=== PATIENT | female | born 1960 | race Caucasian/White ===

== ENCOUNTER 2020-09-10 09:38 | Outpatient (REF) | payer OTHER, SELFPAY ==
[2020-09-10 10:27] LABS: MANUAL DIFF FLAG NO
[2020-09-10 10:37] LABS: Basophils Percent Auto 0.8 % (0-2); Eosinophils Absolute Auto 0.3 X10*3/uL (0.0-0.4); Eosinophils Percent Auto 4.9 % (0-4); Hematocrit 40.1 % (37-47); Hemoglobin 12.9 g/dl (12.0-16.0); Imm Gran Abs Auto 0.01 X10*3/uL (0.00-0.03); Imm Gran Pct Auto 0.2 % (0.0-0.4); Lymphocytes Absolute Auto 1.4 X10*3/uL (1.2-4.9); Lymphocytes Percent Auto 25.7 % (20-40); Mean Corpuscular HGB Conc 32.2 g/dl (31.0-35.0); Mean Corpuscular Hemoglobin 28.2 pg (27.0-33.0); Mean Corpuscular Volume 87.7 fL (80-98); Mean Platelet Volume 10.4 fL (9.4-12.3); Monocytes Absolute Auto 0.3 X10*3/uL (0.1-1.2); Monocytes Percent Auto 6.4 % (2-11); Neutrophils Absolute Auto 3.3 X10*3/uL (2.0-8.3); Platelet Count 225 X10*3/uL (160-400); Red Blood Count 4.57 X10*6/uL (4.20-5.50); Red Cell Distribution Width 13.4 % (11.0-16.0); White Blood Count 5.3 X10*3/uL (4.8-10.8)
[2020-09-10 10:58] LABS: Alanine Aminotransferase 24 U/L (0-31); Albumin Level 4.4 g/dL (3.5-5.0); Alkaline Phosphatase 88 U/L (39-117); Anion Gap 11 (12-20); Aspartate Amino Transferase 13 U/L (5-31); Bilirubin Total 0.5 mg/dL (0.0-1.0); Blood Urea Nitrogen 21 mg/dL (9-16); Calcium 9.1 mg/dL (8.4-10.2); Carbon Dioxide 29 mmol/L (22-29); Chloride 106 mmol/L (96-108); Cholesterol 204 mg/dL; Estimated Glomerular Filt Rate > 60; Glucose Random 103 mg/dL (60-115); HDL Cholesterol 67 mg/dL; LDL Cholesterol Calculated 118 mg/dl; Potassium 3.8 mmol/l (3.3-5.1); Sodium 142 mmol/L (135-145); Total Protein 6.9 g/dL (6.5-8.0); Triglycerides 98 mg/dL
== END 2020-09-10 09:39 | disposition home or self-care (01) ==
LOC: HO.LAB 09:38
PROVIDERS: Visit Provider Internal Medicine
DX: D50.9 Iron deficiency anemia, unspecified (principal); E78.00 Pure hypercholesterolemia, unspecified; L20.81 Atopic neurodermatitis
CPT/HCPCS: 36415; 80053; 80061; 85025

== ENCOUNTER 2020-10-28 12:19 | Outpatient (REF) | payer OTHER, SELFPAY ==
[2020-10-29 13:37] LABS: Immunoglobulin A 95 mg/dL (47-310)
[2020-10-30 00:18] LABS: Transglutaminase Ab IgG 4 U/mL; Transglutaminase IgA 1 U/mL
[2020-11-01 22:33] LABS: Gliadin Deamidated IgA Ab 3 Units; Gliadin Deamidated IgG Ab 3 Units
[2020-11-05 14:32] LABS: Endomysial IgA Antibody Negative (Negative)
== END 2020-10-28 12:20 | disposition home or self-care (01) ==
LOC: HO.10HDL 12:19
PROVIDERS: Visit Provider Internal Medicine
DX: K58.0 Irritable bowel syndrome with diarrhea (principal)
CPT/HCPCS: 36415; 82784; 83516; 86255; 86256

== ENCOUNTER 2020-11-12 10:50 | Day surgery (SDC) | payer OTHER, SELFPAY ==
[2020-11-05 14:28] VITALS: BMI 24.8
--- NOTE | 2020-11-11 10:35 | P.CONAN_ITS ---
Documented by User: Simni Pangney 11/11/20 10:52 HPI - Anesthesia Eval Consult details Narrative: 60yo F for Colonoscopy PMFSH Past Medical History Medical History Anorexia Back pain Bulimia Fibromyalgia History of depression History of pernicious anemia Hyperlipidemia IBS (irritable bowel syndrome) Surgical History Surgical History Hx of breast implants, bilateral Hx of cataract extraction Hx of cholecystectomy Hx of tonsillectomy Social History Social History Are you a primary child care development specialist to a significant other at home: No Do you presently have visiting nurse or other home services: No Smoking Status: Current some day smoker Packs Per Day: 0 Cigarettes Per Day: 0 Years Smoked: 13 Smoked in Last 30 Days: Yes Patient Interested in Nicotine Replacement: No Patient Given Instructions on How to Stop Smoking: Yes Date Education Initiated: 11/05/20 Second Hand Smoke Exposure: No Use of substances other than those prescribed or required for medical reasons: No Have you been hit, kicked, punched, or otherwise hurt by someone within the past year? If so, by whom?: No Advance Directives: No Advance Directives Information Provided: No Advance Directives on File: No Recently lost weight without trying: No Meds Allergies Allergy/AdvReac Type Severity Reaction Status Date / Time No Known Allergies Allergy Unverified 11/05/20 14:20 Home Medications Medication Instructions Recorded Confirmed Last Taken Type coenzyme Q10 [CoQ-10] 100 mg PO DAILY 11/05/20 11/05/20 Unknown History cyclobenzaprine 1 tab PO BEDTIME 11/05/20 11/05/20 Unknown History hydroxyzine HCl 1 tab PO TID 11/05/20 11/05/20 Unknown History multivitamin 1 tab PO DAILY 11/05/20 11/05/20 Unknown History naproxen sodium [Aleve] 220 mg PO BID PRN 11/05/20 11/05/20 Unknown History rosuvastatin 1 tab PO BEDTIME 11/05/20 11/05/20 Unknown History Exam Exam Date and Time: November 11, 2020 1035 Height,Weight and Vital Signs: Height 5 ft 6 in Weight 69.853 kg Pertinent Lab Results Pertinent Lab Results: Laboratory Tests 09/10/20 09/10/20 09:43 09:43 WBC 5.3 Hgb 12.9 Hct 40.1 Plt Count 225 Sodium 142 Potassium 3.8 Chloride 106 Carbon Dioxide 29 BUN 21 H Creatinine 0.92 Assessment and Plan Assessment Anesthesia Assessment: Chart Reviewed Documented by User: Tereso Mccray MD 11/12/20 12:59 PMFSH Past Medical History Medical History Anorexia Back pain Bulimia Fibromyalgia History of depression History of pernicious anemia Hyperlipidemia IBS (irritable bowel syndrome) Surgical History Surgical History Hx of breast implants, bilateral Hx of cataract extraction Hx of cholecystectomy Hx of tonsillectomy Social History Social History Are you a primary child care development specialist to a significant other at home: No Do you presently have visiting nurse or other home services: No Smoking Status: Current some day smoker Packs Per Day: 0 Cigarettes Per Day: 0 Years Smoked: 13 Smoked in Last 30 Days: Yes Patient Interested in Nicotine Replacement: No Patient Given Instructions on How to Stop Smoking: Yes Date Education Initiated: 11/05/20 Second Hand Smoke Exposure: No Use of substances other than those prescribed or required for medical reasons: No Have you been hit, kicked, punched, or otherwise hurt by someone within the past year? If so, by whom?: No Advance Directives: No Advance Directives Information Provided: No Advance Directives on File: No Recently lost weight without trying: No Meds Allergies Allergy/AdvReac Type Severity Reaction Status Date / Time No Known Allergies Allergy Unverified 11/05/20 14:20 Home Medications Medication Instructions Recorded Confirmed Last Taken Type coenzyme Q10 [CoQ-10] 100 mg PO DAILY 11/05/20 11/05/20 Unknown History cyclobenzaprine 1 tab PO BEDTIME 11/05/20 11/05/20 Unknown History hydroxyzine HCl 1 tab PO TID 11/05/20 11/05/20 Unknown History multivitamin 1 tab PO DAILY 11/05/20 11/05/20 Unknown History naproxen sodium [Aleve] 220 mg PO BID PRN 11/05/20 11/05/20 Unknown History rosuvastatin 1 tab PO BEDTIME 11/05/20 11/05/20 Unknown History Exam Airway Mallampati Class: II TM Dist: >3cm Neck ROM: Full Denture: Upper (Fixed) and Lower Loose/Missing/Broken Teeth: Yes Lungs: nonlabored Assessment and Plan Assessment Anesthesia Assessment: Anesthesia Plan Discussed and Chart Reviewed Final Anesthetic Review NPO: Yes ASA Class: II Final Preanesthetic Review: No Changes in Pt Med Stat, Meds/Allgs Chart Reviewed, Consent Obtained/Reviewed and Anes Risks/Benef Reviewed Patient Risk: Low Procedure Risk: Low Anesthetic Plan Anesthetic Plan: MAC: Disposition: Standard PACU
[2020-11-12 11:53] VITALS: BP 144/97; PULSE 92; RESP 18; TEMP 36.3; O2SAT 97
--- NOTE | 2020-11-12 12:56 | PC.NURSE ---
Georges WHITE STATED SHE WOULD GET A TAXI VOUCHER FOR PATIENT.
--- NOTE | 2020-11-12 13:39 | P.CONAN_ITS ---
[facility] Past Medical History Medical History Anorexia Back pain Bulimia Fibromyalgia History of depression History of pernicious anemia Hyperlipidemia IBS (irritable bowel syndrome) Surgical History Surgical History Hx of breast implants, bilateral Hx of cataract extraction Hx of cholecystectomy Hx of tonsillectomy Social History Social History Are you a primary college and career counselor to a significant other at home: No Do you presently have visiting nurse or other home services: No Smoking Status: Current some day smoker Packs Per Day: 0 Cigarettes Per Day: 0 Years Smoked: 13 Smoked in Last 30 Days: Yes Patient Interested in Nicotine Replacement: No Patient Given Instructions on How to Stop Smoking: Yes Date Education Initiated: 11/05/20 Second Hand Smoke Exposure: No Use of substances other than those prescribed or required for medical reasons: No Have you been hit, kicked, punched, or otherwise hurt by someone within the past year? If so, by whom?: No Advance Directives: No Advance Directives Information Provided: No Advance Directives on File: No Recently lost weight without trying: No Meds Allergies Allergy/AdvReac Type Severity Reaction Status Date / Time No Known Allergies Allergy Unverified 11/05/20 14:20 Home Medications Medication Instructions Recorded Confirmed Last Taken Type coenzyme Q10 [CoQ-10] 100 mg PO DAILY 11/05/20 11/05/20 Unknown History cyclobenzaprine 1 tab PO BEDTIME 11/05/20 11/05/20 Unknown History hydroxyzine HCl 1 tab PO TID 11/05/20 11/05/20 Unknown History multivitamin 1 tab PO DAILY 11/05/20 11/05/20 Unknown History naproxen sodium [Aleve] 220 mg PO BID PRN 11/05/20 11/05/20 Unknown History rosuvastatin 1 tab PO BEDTIME 11/05/20 11/05/20 Unknown History Exam Exam Date and Time: November 12, 2020 1339 Height,Weight and Vital Signs: Height 5 ft 6 in Weight 69.853 kg Last Vital Signs Temp 97.4 F 11/12/20 11:53 Pulse 92 11/12/20 11:53 Resp 18 11/12/20 11:53 BP 144/97 H 11/12/20 11:53 Pulse Ox 97 11/12/20 11:53 Airway Mallampati Class: II TM Dist: >3cm Heart: RRR Lungs: CTA
[2020-11-12] MEDS: Lactated Ringers 500 ML 50 ML IV (13:49)
[2020-11-12 14:49] VITALS: BP 130/76; PULSE 84; RESP 16; TEMP 36; O2SAT 99
--- NOTE | 2020-11-12 14:55 | PM.OP ---
Brief Operative Note Date of Service: 11/12/20 Pre-op diagnosis: Screening, diarrhea Post-op diagnosis: other (R/O microscopic colitis, Diverticulosis) Procedure: Colonoscopy to cecum and TI with biopsies Surgeon: Cristo Sims Anesthesia: MAC Estimated blood loss (mL): 4.0 Pathology: other (A. Ascending colon B. Terminal ileum C. Descending colon) Condition: stable Disposition: PACU
[2020-11-12 15:04] VITALS: BP 135/79; PULSE 78; RESP 13; TEMP 36; O2SAT 100
--- NOTE | 2020-11-12 15:22 | OP_ITS ---
SURGEON: Cristo Sims MD INDICATIONS: The patient presents for evaluation of colorectal cancer screening and diarrhea. Full consent has been obtained from her for this, including risks of bleeding and perforation. PREOPERATIVE DIAGNOSIS: POSTOPERATIVE DIAGNOSIS: PROCEDURE PERFORMED: Colonoscopy to cecum and terminal ileum with biopsies. ESTIMATED BLOOD LOSS: COMPLICATIONS: ANESTHESIA: Monitored anesthesia care. ASSISTANTS: SPECIMENS: PREOPERATIVE DIAGNOSES: Colorectal cancer screening and diarrhea. POSTOPERATIVE DIAGNOSES: Colorectal cancer screening and diarrhea, rule out microscopic colitis, mild sigmoid diverticulosis, and small internal hemorrhoids. DESCRIPTION OF PROCEDURE: The patient was placed in the left lateral decubitus position. The digital rectal exam revealed no abnormalities. The Olympus video pediatric colonoscope was entered into the rectum and advanced easily to the cecum. Once in the cecum, I did identify normal-appearing cecal pouch with appendiceal orifice and a normal-appearing ileocecal valve. The terminal ileum was cannulated and appeared normal. Biopsies were obtained. The scope was withdrawn back in the colon. The entire cecum and ileocecal valve appeared normal. The scope was slowly withdrawn assessing all mucosal surfaces carefully. Preparation was excellent. I did not visualize any sign of polyps, colitis, nor angiodysplasia. Biopsies were obtained in the ascending and descending colon to rule out microscopic colitis. There was a mild amount of sigmoid diverticulosis. In the rectum, scope was retroflexed visualizing internal hemorrhoids, but no other pathology. The rectal mucosa appeared normal. The scope was straightened and withdrawn from the patient. She tolerated the procedure well and was returned to recovery area in stable condition. IMPRESSION: 1. Rule out microscopic colitis. 2. Mild sigmoid diverticulosis. 3. Small internal hemorrhoids. PLAN: The results of the biopsy will be checked. From a screening standpoint, I would recommend a repeat colonoscopy in 10 years. In regard to the chronic GI symptoms, I have recommended that she use Imodium on a p.r.n. basis and also try some fiber supplements to see if that can help regulate her bowel movements. At some point, we might want to try her on an antispasmodic such as dicyclomine. Recent laboratories, including celiac disease serologies, were all negative. She was advised to see me in 2 to 3 months for a followup visit as well. MD CARLOS Tay/RHODA / [id number] MTDD
== END 2020-11-12 15:46 | disposition home or self-care (01) ==
PROVIDERS: PCP Internal Medicine; Visit Provider Internal Medicine
PROC: 0DJD8ZZ Inspection of Lower Intestinal Tract, Via Natural or Artificial Opening Endoscopic (ICD-10-PCS; CPT 45378; principal; 2020-11-12 12:50)
DX: Z12.11 Encounter for screening for malignant neoplasm of colon (principal); K58.2 Mixed irritable bowel syndrome; K57.30 Diverticulosis of large intestine without perforation or abscess without bleeding; K64.8 Other hemorrhoids; Z90.49 Acquired absence of other specified parts of digestive tract; R63.0 Anorexia; F50.2 Bulimia nervosa; Z79.899 Other long term (current) drug therapy; Z98.82 Breast implant status; F17.210 Nicotine dependence, cigarettes, uncomplicated
CPT/HCPCS: 45380; 88305

== ENCOUNTER 2020-12-22 08:04 | Outpatient (REF) | payer OTHER, SELFPAY ==
--- NOTE | ~2020-12-22 | US_ITS ---
EXAMINATION: US DIAGNOSTIC ULTRASOUND BREAST, LEFT CLINICAL INFORMATION: Six-month follow-up complex cyst. COMPARISON: Ultrasound of March 02, 2020 and mammogram of same day.. TECHNIQUE: Ultrasound of the breast is performed with real-time lynch scale imaging and color Doppler. FINDINGS: Targeted ultrasound evaluation about the superior lateral aspect of the left breast did not demonstrate the complex cyst noted on study of March 02, 2020. No abnormal cystic or solid masses identified. No region of abnormal distal sound shadowing. Results are provided to the patient at time of visit by the technologist. US/US breast LT limited IMPRESSION: There are no significant changes from prior study. ASSESSMENT: BI-RADS 1: Negative RECOMMENDATION: Routine annual mammography screening, due in 6 months.
--- NOTE | ~2020-12-22 | MM_ITS ---
EXAMINATION: MM DIAGNOSTIC DIGITAL BREAST TOMOSYNTHESIS, BILATERAL US TARGETED LEFT BREAST ULTRASOUND CLINICAL INFORMATION: Left breast asymmetric density. Six-month follow-up. Right breast screening. The lifetime risk of breast cancer based on the Cara Score Model is 10.4%. COMPARISON: Mammography: 03/02/2020 and studies dating back to 07/28/2015. TECHNIQUE: Digital breast tomosynthesis is performed in both the craniocaudal and mediolateral oblique views along with computer-aided detection (CAD). Synthesized 2D images are generated from the tomosynthesis. Bilateral implant displaced views performed. Targeted left breast ultrasound. FINDINGS: There are scattered areas of fibroglandular density (ACR BI-RADS breast composition Category b). No new suspicious mass or abnormal grouping of calcifications within the left breast seen. Left breast density is not as evident on today's study. Right breast implant is again noted to be smaller than the left with infolding and prominent capsular calcifications. Targeted ultrasound evaluation about the superior lateral aspect of the left breast did not demonstrate the complex cyst noted on study of 03/02/2020. No abnormal cystic or solid masses identified. No region of abnormal distal sound shadowing. Results are provided to the patient at time of visit by the technologist. MM/MM diagnostic mammo implant BI IMPRESSION: There are no significant changes from prior study. ASSESSMENT: BI-RADS 1: Negative. RECOMMENDATION: Routine annual mammography screening, due in 6 months. This patient's information was entered into a reminder system with a target due date for their next mammogram.
== END 2020-12-22 08:05 | disposition home or self-care (01) ==
LOC: HO.MAMMO 08:04
PROVIDERS: Visit Provider Internal Medicine
DX: N64.89 Other specified disorders of breast (principal)
CPT/HCPCS: 76642; 77066

== ENCOUNTER 2021-03-21 12:01 | Outpatient (REF) | payer OTHER, SELFPAY ==
[2021-03-21 12:45] LABS: MANUAL DIFF FLAG NO
[2021-03-21 12:51] LABS: Basophils Percent Auto 0.5 % (0-2); Eosinophils Absolute Auto 0.2 X10*3/uL (0.0-0.4); Eosinophils Percent Auto 2.9 % (0-4); Hematocrit 43.3 % (37-47); Hemoglobin 14.4 g/dl (12.0-16.0); Imm Gran Abs Auto 0.01 X10*3/uL (0.00-0.03); Imm Gran Pct Auto 0.2 % (0.0-0.4); Lymphocytes Absolute Auto 1.4 X10*3/uL (1.2-4.9); Lymphocytes Percent Auto 22.2 % (20-40); Mean Corpuscular HGB Conc 33.3 g/dl (31.0-35.0); Mean Corpuscular Hemoglobin 29.9 pg (27.0-33.0); Mean Corpuscular Volume 89.8 fL (80-98); Mean Platelet Volume 9.8 fL (9.4-12.3); Monocytes Absolute Auto 0.3 X10*3/uL (0.1-1.2); Neutrophils Absolute Auto 4.3 X10*3/uL (2.0-8.3); Neutrophils Percent Auto 69.2 % (45-73); Platelet Count 223 X10*3/uL (160-400); Red Blood Count 4.82 X10*6/uL (4.20-5.50); Red Cell Distribution Width 12.6 % (11.0-16.0); White Blood Count 6.3 X10*3/uL (4.8-10.8)
[2021-03-21 13:25] LABS: Alanine Aminotransferase 18 U/L (0-31); Alkaline Phosphatase 117 U/L (39-117); Anion Gap 14 (12-20); Aspartate Amino Transferase 13 U/L (5-31); Bilirubin Total < 0.2 mg/dL (0.0-1.0); Blood Urea Nitrogen 12 mg/dL (9-16); Carbon Dioxide 27 mmol/L (22-29); Chloride 108 mmol/L (96-108); Cholesterol 270 mg/dL; Estimated Glomerular Filt Rate 51; Glucose Random 101 mg/dL (60-115); HDL Cholesterol 50 mg/dL; Potassium 4.5 mmol/L (3.3-5.1); Sodium 144 mmol/L (135-145); Triglycerides 719 mg/dL
[2021-03-21 13:31] LABS: Thyroid Stimulating Hormone 0.51 uIU/mL (0.32-4.0)
== END 2021-03-21 12:02 | disposition home or self-care (01) ==
LOC: HO.LAB 12:01
PROVIDERS: PCP Internal Medicine; Visit Provider Internal Medicine
DX: Z00.00 Encounter for general adult medical examination without abnormal findings (principal); D50.9 Iron deficiency anemia, unspecified; E78.01 Familial hypercholesterolemia; L80 Vitiligo; N30.00 Acute cystitis without hematuria
CPT/HCPCS: 36415; 80053; 80061; 84443; 85025

== ENCOUNTER 2021-09-15 13:22 | Outpatient (REF) | payer OTHER, SELFPAY ==
[2021-09-15 14:24] LABS: Alanine Aminotransferase 33 U/L (0-31); Albumin Level 4.8 g/dL (3.5-5.0); Alkaline Phosphatase 89 U/L (39-117); Anion Gap 8 (12-20); Aspartate Amino Transferase 15 U/L (5-31); Bilirubin Total 0.4 mg/dL (0.0-1.0); Blood Urea Nitrogen 10 mg/dL (9-16); Carbon Dioxide 31 mmol/L (22-29); Chloride 110 mmol/L (96-108); Cholesterol 178 mg/dL; Estimated Glomerular Filt Rate > 60; Glucose Random 85 mg/dL (60-115); HDL Cholesterol 48 mg/dL; LDL Cholesterol Calculated 96 mg/dl; Potassium 4.1 mmol/L (3.3-5.1); Sodium 145 mmol/L (135-145); Total Protein 7.3 g/dL (6.5-8.0); Triglycerides 174 mg/dL
== END 2021-09-15 13:23 | disposition home or self-care (01) ==
LOC: HO.LAB 13:22
PROVIDERS: PCP Internal Medicine; Visit Provider Internal Medicine
DX: E78.00 Pure hypercholesterolemia, unspecified (principal); M79.7 Fibromyalgia; M94.0 Chondrocostal junction syndrome [Tietze]
CPT/HCPCS: 36415; 80053; 80061

== ENCOUNTER 2021-09-22 10:02 | Outpatient (REF) | payer OTHER, SELFPAY ==
--- NOTE | ~2021-09-22 | XR_ITS ---
EXAMINATION: XR HIP, RIGHT CLINICAL INFORMATION: Pain, OA COMPARISON: None TECHNIQUE: Two views of the right hip. FINDINGS: No fracture or dislocation. Mild cartilage space loss and mild bony spurring in the acetabulum. The femoral head is well-seated within the acetabulum. Soft tissues unremarkable. XR/XR hip RT min 2V IMPRESSION: Mild degenerative change in the right hip.
--- NOTE | ~2021-09-22 | XR_ITS ---
EXAMINATION: XR KNEE, RIGHT CLINICAL INFORMATION: Pain, OA COMPARISON: None TECHNIQUE: Four views of the right knee. FINDINGS: Bones and soft tissues are normal. No fracture or joint effusion. Alignment is anatomic. Joint spaces are well maintained. No abnormal soft tissue calcification. XR/XR knee RT 4V IMPRESSION: Normal right knee.
== END 2021-09-22 10:03 | disposition home or self-care (01) ==
LOC: HO.XRAY 10:02
PROVIDERS: PCP Internal Medicine; Visit Provider Internal Medicine
DX: M16.11 Unilateral primary osteoarthritis, right hip (principal); M17.11 Unilateral primary osteoarthritis, right knee
CPT/HCPCS: 73502; 73564

== ENCOUNTER → 2021-10-28 09:54 | Outpatient (BNVA) | payer OTHER, SELFPAY | PROVIDERS: PCP Internal Medicine; Visit Provider Physician Assistant | DX: M22.2X1 Patellofemoral disorders, right knee (principal); M06.9 Rheumatoid arthritis, unspecified | CPT/HCPCS: 99202 ==

== ENCOUNTER → 2022-04-14 09:45 | Outpatient (BNVA) | payer OTHER, SELFPAY | PROVIDERS: PCP Internal Medicine; Visit Provider Surgery | DX: S46.812A Strain of other muscles, fascia and tendons at shoulder and upper arm level, left arm, initial encounter (principal); Z86.2 Personal history of diseases of the blood and blood-forming organs and certain disorders involving the immune mechanism | CPT/HCPCS: 99202 ==

== ENCOUNTER 2022-04-27 16:57 | Outpatient (REF) | payer OTHER, SELFPAY | END 2022-04-27 16:58 | disposition home or self-care (01) | LOC: HO.LNP 16:57 | PROVIDERS: Visit Provider Internal Medicine | DX: N30.00 Acute cystitis without hematuria (principal) | CPT/HCPCS: 87086; 87491; 87591 ==

== ENCOUNTER 2022-04-28 13:42 | Outpatient (REF) | payer OTHER, SELFPAY ==
--- NOTE | ~2022-04-28 | MR_ITS ---
EXAMINATION: MR SHOULDER WITHOUT AND WITH CONTRAST, LEFT CLINICAL INFORMATION: Left shoulder palpable lumps. Pain. Weight loss and fatigue. COMPARISON: None TECHNIQUE: MRI of the shoulder was performed before and after the intravenous administration of 7 mL Gadavist on a high-field scanner. FINDINGS: ROTATOR CUFF: Intact. No muscle atrophy or fatty infiltration. BICEPS: Intact. CORACOACROMIAL ARCH: The undersurface of the acromion is curved with no subacromial spur. Mild acromioclavicular osteoarthritis. LABRUM/CAPSULE: Linear fluid within the undersurface of the superior and posterosuperior labrum consistent with nondisplaced undersurface tearing. Intact joint capsule. GLENOHUMERAL JOINT/MARROW: Intact articular cartilage. No acute osseous abnormality. Trace joint effusion. DELTOID: Within the anterior deltoid muscle there is a lobulated and encapsulated appearing fat lesion incorporated within the muscle fibers. This measures up to 1.6 x 4.6 x 6.7 cm (AP x ML x CC). Muscle fibers are interspersed within the lateral aspect of the lesion. No additional soft tissue component. No postcontrast enhancement. MR/MR shoulder LT wo/w con IMPRESSION: 1. 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 No concerning features such as a soft tissue component or postcontrast enhancement. If there is significant interval increase in size or focal symptomatology, repeat imaging could be considered to evaluate for a more aggressive lesion. 2. Nondisplaced undersurface tear of the superior and posterosuperior labrum. 3. Mild acromioclavicular osteoarthritis.
== END 2022-04-28 13:43 | disposition home or self-care (01) ==
LOC: HO.MRI 13:42
PROVIDERS: PCP Internal Medicine; Visit Provider Surgery
DX: S46.812A Strain of other muscles, fascia and tendons at shoulder and upper arm level, left arm, initial encounter (principal)
CPT/HCPCS: 73223; A9585

== ENCOUNTER 2022-05-12 | Outpatient (REF) | payer OTHER, SELFPAY | END 2022-05-12 00:01 | LOC: CF | PROVIDERS: Visit Provider Surgery | DX: D17.22 Benign lipomatous neoplasm of skin and subcutaneous tissue of left arm (principal); Z79.899 Other long term (current) drug therapy | CPT/HCPCS: 99212 ==

== ENCOUNTER 2022-05-12 14:20 | Outpatient (REF) | payer OTHER, SELFPAY ==
--- NOTE | ~2022-05-12 | MM_ITS ---
EXAMINATION: MM SCREENING DIGITAL BREAST TOMOSYNTHESIS, BILATERAL CLINICAL INFORMATION: Screening. Asymptomatic. The lifetime risk of breast cancer based on the Tyrer-Cuzick Model is 5.0%. COMPARISON: Mammography: December 22, 2020 and studies dating back to April 26, 2006 TECHNIQUE: Digital mammography is performed in craniocaudal and mediolateral oblique views along with computer-aided detection (CAD). Digital breast tomosynthesis is performed in implant-displaced craniocaudal and implant-displaced mediolateral oblique views along with computer-aided detection (CAD). Synthesized 2D images are generated from the tomosynthesis. FINDINGS: There are scattered areas of fibroglandular density (ACR BI-RADS breast composition Category b). There are no significant masses, abnormal calcifications, or other abnormalities. Stable circumscribed density seen superior aspect of the left breast. The right implant is noted to be smaller than the left with infolding and prominent capsular calcifications. MM/MM tomosynthesis screen imp BI IMPRESSION: There are no significant changes from prior study. ASSESSMENT: BI-RADS 2: Benign RECOMMENDATION: Routine annual mammography screening. This patient's information was entered into a reminder system with a target due date for their next mammogram.
== END 2022-05-12 14:21 | disposition home or self-care (01) ==
LOC: HO.MAMMO 14:20
PROVIDERS: PCP Internal Medicine; Visit Provider Internal Medicine
DX: Z12.31 Encounter for screening mammogram for malignant neoplasm of breast (principal)
CPT/HCPCS: 77063; 77067

== ENCOUNTER 2022-05-31 19:28 | Outpatient (REF) | payer OTHER, SELFPAY ==
--- NOTE | ~2022-05-31 | MR_ITS ---
EXAMINATION: MR CERVICAL SPINE WITHOUT CONTRAST CLINICAL INFORMATION: 62-year-old with myelopathy, radiculopathy. COMPARISON: None TECHNIQUE: MRI of the cervical spine was obtained using routine sequences without contrast. FINDINGS: Alignment: Very slight lower cervical levocurvature. There is trace anterolisthesis at C6-C7 with straightening of the upper cervical spine. Craniocervical Junction/C1-C2 Articulations: Intact and aligned. Visualized Intracranial Structures: Within normal limits. Vertebral Bodies: Normal height. Disc Spaces and Endplates: Cowpkxvb-ao-tetdxz disc space height loss noted at C4-C5 and C5-C6 with moderate disc space height loss at C3-C4, with mild degrees of anterior marginal endplate spurring between C3-C4 and C6-C7 inclusive. Endplates appear intact. Bone Marrow: Minor degenerative marrow signal changes seen along the endplates between C3-C4 and C6-C7 inclusive. No suspicious marrow-replacing process or bone marrow edema. C2-C3: Minimal shallow central disc protrusion with slight flattening of the ventral dural sac without cord impingement or canal stenosis. Mild facet arthropathy noted on the right without significant neural foraminal stenosis. C3-C4: Broad-based disc-osteophyte complex noted, with [id number] flattening of the ventral dural sac without cord impingement. Mild central spinal canal stenosis is noted. There is uncovertebral spurring and facet arthropathy bilaterally with mild left-sided and moderate right-sided neural foraminal stenosis. C4-C5: Posterior disc-osteophyte complex noted with flattening of the ventral dural sac, with mild spinal canal stenosis without cord impingement. Uncovertebral spurring is noted, right more than left, with mild left and moderate right-sided facet arthrosis. There is moderate right-sided neural foraminal stenosis. C5-C6: Broad-based disc-osteophyte complex asymmetric to the left, with flattening of the ventral dural sac without cord impingement. Lkqtixvdbn-[id number]-[id number] central spinal canal stenosis. Bilateral uncovertebral spurring is noted with fhzw-ac-iwaqzzgf facet arthropathy. Moderate bilateral neural foraminal stenosis is noted. C6-C7: Shallow broad-based disc protrusion and left paramedian disc-osteophyte complex noted with flattening of the ventral dural sac without cord impingement or significant canal stenosis. There is uncovertebral spurring and mild facet arthrosis with khib-bh-degebahy left-sided neural foraminal stenosis. C7-T1: No disc herniation or canal stenosis. No significant facet arthropathy or neural foraminal stenosis. T1-T2: Small left paramedian disc-osteophyte complex. No facet arthrosis, canal or neural foraminal stenosis. Spinal Cord: The cervical and visualized upper thoracic spinal cord is normal in morphology, caliber and signal intensity. Extracranial Soft Tissues: The visualized extracranial head/neck soft tissues are unremarkable within the limitations of the study. MR/MR cervical spine wo con IMPRESSION: 1. Slight lower cervical levocurvature, with trace anterolisthesis at C6-C7 and straightening of the upper cervical spine with multilevel discogenic degenerative changes and spondylosis, as detailed above. 2. Multilevel posterior disc-osteophyte complexes and shallow disc protrusions without cord impingement. Mild multilevel spinal canal stenosis is noted, as detailed above. 3. Multilevel DJD, as discussed above, with predominately ajoq-fz-rzzkvlxm and moderate degrees of neural foraminal stenosis at multiple levels, as described by level above.
== END 2022-05-31 19:29 | disposition home or self-care (01) ==
LOC: HO.MRI 19:28
PROVIDERS: Visit Provider Psychiatry & Neurology Neurology
DX: G95.9 Disease of spinal cord, unspecified (principal); M54.12 Radiculopathy, cervical region
CPT/HCPCS: 72141

== ENCOUNTER 2022-07-10 11:04 | Outpatient (REF) | payer OTHER, SELFPAY ==
[2022-07-10 12:38] LABS: Alanine Aminotransferase 110 U/L (0-31); Albumin Level 4.8 g/dL (3.5-5.0); Alkaline Phosphatase 94 U/L (39-117); Anion Gap 15 (12-20); Aspartate Amino Transferase 35 U/L (5-31); Bilirubin Total 0.7 mg/dL (0.0-1.0); Blood Urea Nitrogen 20 mg/dL (9-16); Calcium 9.8 mg/dL (8.4-10.2); Carbon Dioxide 28 mmol/L (22-29); Chloride 105 mmol/L (96-108); Cholesterol 185 mg/dL; Estimated Glomerular Filt Rate > 60; Glucose Random 96 mg/dL (60-115); HDL Cholesterol 56 mg/dL; LDL Cholesterol Calculated 101 mg/dl; Potassium 4.2 mmol/L (3.3-5.1); Sodium 144 mmol/L (135-145); Total Protein 7.3 g/dL (6.5-8.0); Triglycerides 144 mg/dL
== END 2022-07-10 11:05 | disposition home or self-care (01) ==
LOC: HO.LAB 11:04
PROVIDERS: PCP Internal Medicine; Visit Provider Internal Medicine
DX: M79.7 Fibromyalgia (principal); L98.1 Factitial dermatitis; E78.00 Pure hypercholesterolemia, unspecified
CPT/HCPCS: 36415; 80053; 80061

== ENCOUNTER → 2022-07-17 09:22 | Outpatient (BNVA) | payer OTHER, SELFPAY | PROVIDERS: PCP Internal Medicine; Visit Provider Surgery | DX: D17.9 Benign lipomatous neoplasm, unspecified (principal); Z86.2 Personal history of diseases of the blood and blood-forming organs and certain disorders involving the immune mechanism | CPT/HCPCS: 99212 ==

== ENCOUNTER → 2023-03-07 15:19 | Outpatient (BNVA) | payer OTHER, SELFPAY | PROVIDERS: PCP Internal Medicine; Visit Provider Surgery | DX: D17.22 Benign lipomatous neoplasm of skin and subcutaneous tissue of left arm (principal); D17.9 Benign lipomatous neoplasm, unspecified; M79.7 Fibromyalgia; Z86.2 Personal history of diseases of the blood and blood-forming organs and certain disorders involving the immune mechanism | CPT/HCPCS: 99212 ==

== ENCOUNTER 2023-04-19 06:08 | Day surgery (SDC) | payer OTHER, SELFPAY ==
[2023-04-16 14:05] VITALS: BMI 23.9
[2023-04-19] VITALS (7 sets, daily range): BP systolic 113–129; BP diastolic 68–82; PULSE 68–85; RESP 16; TEMP 36.3–36.7; O2SAT 98–100; BMI 24.2
--- NOTE | 2023-04-19 06:25 | MHC.SHP ---
Pre-Procedural Eval Section A Date of Service: 04/19/23 The patient is an INPATIENT: No The History & Physical has been completed within 30 days and I have reviewed it.: Yes Section B Chief Complaint: Benign lipomatous neoplasm, unspecified Allergies: Allergies Allergy/AdvReac Type Severity Reaction Status Date / Time No Known Allergies Allergy Verified 04/19/23 06:23 Plan I have reviewed the history and physical and performed a pertinent physical examination on my patient. No changes have occurred unless specified. Time Spent With Patient Time: Total time managing care of this patient today ____ minutes.
--- NOTE | 2023-04-19 06:25 | W.PM.OPN ---
Operative Note Operative Note Date of Service: 04/19/23 Narrative: Preop diagnosis: [LEFT deltoid, intramuscular lipoma] Postop diagnosis: [Same] Procedure: [Excision of left deltoid intramuscular lipoma, complex closure 6 cm incision with intramuscular and subcu components] Surgeon: Jeffery Garcia MD Assist: [Morenita Pollack RN] Anesthesia: [General via LMA; local: Lidocaine, 1% with epinephrine/bupivacaine, 0.5% in 50/50 mix, 20cc total] Estimated blood loss: [3cc] Specimen: [Left deltoid intramuscular lipoma measuring [id number] cm] Intraoperative findings: [Intramuscular lipoma, completely excised] Indications: [The patient is a 63-year-old woman with a history of fibromyalgia who presented with a lipoma with some local symptoms in other diffuse symptoms not related to the lipoma. Explained to the patient that the local left deltoid pain that she is experiencing is likely related to the lipoma, however her fibromyalgia, bilateral carpal tunnel and squeezing sensation of her left hand are not related to the lipoma.? Explained that it is important to set expectations for what will improve with removal of this lipoma and the other option of continuing to observe it.? The patient did note that she is contemplating changing jobs and wanted to proceed with surgery, as quickly as possible.? I reviewed the inherent risks of EXCISION OF A LEFT SHOULDER LIPOMA which include, but are not limited to: Bleeding, infection, seroma, need for another procedure in the event of a complication.? I also explained that her complaints of her hand and fibromyalgia will not improve and I have even had patient's clinically worsen and have a fibromyalgia flare from the stress of surgery.? She notes that given the local pain in her left deltoid, she would like to proceed with surgery.? Activity restrictions, specifically that she is not disabled and can perform light duty week after surgery was discussed and apparently understood.? She noted that she would likely have the procedure in between jobs changes.] Procedure: [The patient was identified by myself in the preoperative holding area and the left deltoid lipoma marked by myself. 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 She was induced and general via LMA administered. An appropriate time-out was performed with the team confirming the operative site and equipment and the left shoulder and upper chest prepped then draped with chlor prep. A 6 cm incision was identified with a skin marker local infiltrated. Incision was made sharply and carried into the subcutaneous tissues. Hemostasis was obtained with electrocautery. The lipoma was protruding through the deltoid and identified. Additional local was infiltrated and the specimen was circumferentially dissected using electrocautery for hemostasis. After the specimen was removed it was sent for permanent section. The deltoid was approximate with interrupted 3-0 Polysorb sutures, the subcutaneous tissues were closed with interrupted 3-0 Polysorb, deep dermal 3-0 Polysorb was then used and skin approximated a running 4-0 Monocryl subcuticular stitch. There was washed and dried, Mastisol and Steri-Strips applied. Patient tolerated the procedure well and was sent to PACU in stable condition. All sponge instrument counts were correct x2. At the patient's request, her ex-, Jose, was called at [phone] and briefed regarding the operation, postoperative activity and pain management. His questions seemed to be satisfactorily answered.]
--- NOTE | 2023-04-19 07:25 | P.CONAN_ITS ---
HPI - Anesthesia Eval Consult details Narrative: 63 yo female patient for excision of lipoma dar-lateral left deltoid PMFSH Active Problems Active Problems: All Active Problems (Updated 04/19/23 @ 07:15 by Mila Grijalva MD) Patella-femoral syndrome (Acute) Tear of left deltoid muscle (Acute) Intramuscular lipoma (Acute) Lipoma of left shoulder (Acute) IBS (irritable bowel syndrome) (Acute) Fibromyalgia (Acute) History of pernicious anemia (Acute) Past Medical History Medical History (Updated 04/19/23 @ 08:13 by Mila Grijalva MD) Anorexia Back pain Bulimia Cocaine abuse Fibromyalgia History of depression History of pernicious anemia Hyperlipidemia IBS (irritable bowel syndrome) Family History Family history of problems with anesthesia: No Surgical History Surgical History H/O colonoscopy Hx of breast implants, bilateral Hx of cataract extraction Hx of cholecystectomy Hx of tonsillectomy History of Problems with Anesthesia: No Social History Social History (Updated 04/19/23 @ 08:13 by Mila Grijalva MD) Are you a primary overnight caregiver to a significant other at home: No Do you presently have visiting nurse or other home services: No Patient Tobacco Use Status: Current someday Tobacco user Tobacco use type: Cigarette Cigarette Packs Per Day: 0 Cigarettes Per Day: 0 Years Smoked: 13 Second Hand Smoke Exposure: No 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al status: employed 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: [employer] Allergies Allergy/AdvReac Type Severity Reaction Status Date / Time No Known Allergies Allergy Verified 04/19/23 06:23 Active Medications: Current Medications Lactated Ringer's (Lr) 500 mls @ 50 mls/hr IV .Q10H ABHISHEK Stop: 04/19/23 16:14 Home Medications Medication Instructions Recorded Confirmed Last Taken Type coenzyme Q10 100 mg capsule 100 mg PO BEDTIME 11/05/20 04/19/23 Unknown History (CoQ-10) multivitamin 1 tab PO DAILY 11/05/20 04/19/23 Unknown History naproxen sodium 220 mg capsule 220 mg PO BID PRN Pain 11/05/20 04/19/23 04/18/23 History (Aleve) rosuvastatin 10 mg tablet 1 tab PO BEDTIME 11/05/20 04/19/23 Unknown History Zetia 04/19/23 04/19/23 Unknown History ibuprofen 04/19/23 04/19/23 04:00 History 400 mg Exam Exam Date and Time: April 19, 2023 0725 Height,Weight and Vital Signs: Height 5 ft 6 in Weight 68.039 kg Last Vital Signs Temp 97.4 F 04/19/23 06:24 Pulse 75 04/19/23 06:24 Resp 16 04/19/23 06:24 BP 125/82 04/19/23 06:24 Pulse Ox 98 04/19/23 06:24 O2 Del Method Room Air 04/19/23 06:24 Vital Signs Temp Pulse Resp BP Pulse Ox O2 Del Method 04/19/23 06:24 97.4 F 75 16 125/82 98 Room Air Airway Mallampati Class: II TM Dist: >3cm Neck ROM: Full Denture: Upper (Glued in tight. Unable to remove) and Lower Heart: RRR Lungs: CTAB Assessment and Plan Assessment Anesthesia Assessment: Anesthesia Plan Discussed and Chart Reviewed Final Anesthetic Review Family History of Problems with Anesthesia: No History of Problems with Anesthesia: No NPO: Yes ASA Class: II Final Preanesthetic Review: No Changes in Pt Med Stat, Meds/Allgs Chart Reviewed, Consent Obtained/Reviewed and Anes Risks/Benef Reviewed Patient Risk: Low Procedure Risk: Low Assessment/Block/Sedation in SS: Assess/Block/Sedation-SS Anesthetic Plan Anesthetic Plan: GA Disposition: Standard PACU
--- NOTE | 2023-04-19 07:27 | PC.NURSE ---
Patient took 400mg ibuprofen at [address] Garcia made aware. May proceed with procedure. Dr. Grijalva also made aware that patient has upper plate that she takes out rarely only to clean . Dr. Paz okay with this being left in. Gely [employer]BSYSTEMS ENGINEER made aware.
[2023-04-19] MEDS: Lactated Ringers 1,000 ML 100 ML IVCONT (07:31)
[2023-04-19] MEDS: oxyCODONE HCl Immed Release 5 MG TABLET PO (09:11)
[2023-04-19] MEDS: Acetaminophen 325 MG TABLET 650 MG PO (09:12)
== END 2023-04-19 10:07 | disposition home or self-care (01) ==
PROVIDERS: PCP Internal Medicine; Visit Provider Surgery
PROC: (CPT 23073; principal; 2023-04-19 07:30)
DX: D17.22 Benign lipomatous neoplasm of skin and subcutaneous tissue of left arm (principal); D17.9 Benign lipomatous neoplasm, unspecified; M79.7 Fibromyalgia; Z86.2 Personal history of diseases of the blood and blood-forming organs and certain disorders involving the immune mechanism; E78.5 Hyperlipidemia, unspecified; Z79.1 Long term (current) use of non-steroidal anti-inflammatories (NSAID); Z79.899 Other long term (current) drug therapy; F17.210 Nicotine dependence, cigarettes, uncomplicated
CPT/HCPCS: 23073; 13121; 88304; J0690; J1100; J1885; J2250; J2405; J2795; J3010

== ENCOUNTER → 2023-04-19 06:08 | Outpatient (BNV) | payer OTHER, SELFPAY | PROVIDERS: PCP Internal Medicine; Visit Provider Surgery | DX: D17.22 Benign lipomatous neoplasm of skin and subcutaneous tissue of left arm (principal) | CPT/HCPCS: 11406; 13121 ==

== ENCOUNTER 2023-04-30 11:11 | Outpatient (AMB) | payer OTHER, SELFPAY ==
--- NOTE | 2023-04-30 11:13 | MHC.OFFVIS ---
Intake Vital Signs 04/30/23 11:18 Height 5 ft 6 in Weight 150 lb 5.684 oz BMI 24.3 BP 155/76 H Intake Visit Reasons: S/P lipoma excision Lt. 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 She reports that she is doing well, with no pain, fevers or chills. She did not take any narcotics. She does note that it with her current job, she needs to left 40-50 lb and asked if I would recommend that; I explained that another week of light duty would be endorsed to maximize postoperative healing. She otherwise denies interval change to her history [facility] Medical History (Updated 04/19/23 @ 08:13 by Mila Grijalva MD) Anorexia Back pain Bulimia Cocaine abuse Fibromyalgia History of depression History of pernicious anemia Hyperlipidemia IBS (irritable bowel syndrome) Surgical History (Updated 04/27/23 @ 09:13 by Flaca Radford [facility]) H/O colonoscopy History of excision of mass (04/19/23) Hx of breast implants, bilateral Hx of cataract extraction Hx of cholecystectomy Hx of tonsillectomy Social History (Updated 04/19/23 @ 08:13 by Mila Grijalva MD) Are you a primary child care attendant school to a significant other at home: No Do you presently have visiting nurse or other home services: No Patient Tobacco Use Status: Current someday Tobacco user Tobacco use type: Cigarette Cigarette Packs Per Day: 0 Cigarettes Per Day: 0 Years Smoked: 13 Second Hand Smoke Exposure: No 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al status: employed 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 Results Reviewed Results Reviewed: Pathology confirming mature lobulated adipose tissue was disclosed to the patient. The risk of recurrence was discussed as well as protecting the incision for the next week Assessment & Plan Assessment & Plan (1) Lipoma of left shoulder: Code(s): D17.22 - Benign lipomatous neoplasm of skin and subcutaneous tissue of left arm (2) Intramuscular lipoma: Code(s): D17.9 - Benign lipomatous neoplasm, unspecified Plan Instructions regarding activity were reviewed and apparently understood. The patient will continue to avoid strenuous activities for the next week and should not lift more than 20 lb/B on light duty for the next week for medical reasons. If she has redness, increased pain, swelling or other problems she will contact me, otherwise she is discharged from my care at this time. Medications: Discontinued oxycodone Partial Fill upon patient request. Discontinued Reason: Patient Completed Course 5 mg PO Q4H PRN 20 tabs 0RF pain Coding Level of Care Code Global (00190) Diagnoses Lipoma of left shoulder D17.22 Intramuscular lipoma D17.9
[2023-04-30 11:18] VITALS: BP 155/76; BMI 24.3
== END 2023-04-30 11:38 | disposition home or self-care (01) ==
PROVIDERS: PCP Internal Medicine; Visit Provider Surgery
DX: D17.22 Benign lipomatous neoplasm of skin and subcutaneous tissue of left arm (principal); D17.9 Benign lipomatous neoplasm, unspecified
CPT/HCPCS: 99024

== ENCOUNTER → 2023-04-30 11:11 | Outpatient (BNVA) | payer OTHER, SELFPAY | PROVIDERS: PCP Internal Medicine; Visit Provider Surgery ==

== ENCOUNTER 2023-05-15 08:08 | Outpatient (REF) | payer OTHER, SELFPAY ==
--- NOTE | ~2023-05-15 | MM_ITS ---
EXAMINATION: MM SCREENING DIGITAL BREAST TOMOSYNTHESIS, BILATERAL CLINICAL INFORMATION: Screening. Asymptomatic. COMPARISON: Mammography: This study is compared with prior mammograms dating back to 2019. TECHNIQUE: Digital mammography is performed in craniocaudal and mediolateral oblique views along with computer-aided detection (CAD). Digital breast tomosynthesis is performed in implant-displaced craniocaudal and implant-displaced mediolateral oblique views along with computer-aided detection (CAD). Synthesized 2D images are generated from the tomosynthesis. FINDINGS: There are scattered areas of fibroglandular density (ACR BI-RADS breast composition Category b). There are bilateral retroglandular silicone implants. There is unchanged infolding of the right implant envelope with benign calcifications on its surface. There are no significant masses, abnormal calcifications, or other abnormalities. MM/MM tomosynthesis screen imp BI IMPRESSION: There are no significant changes from prior study. ASSESSMENT: BI-RADS BI-RADS 2 - Benign Findings RECOMMENDATION: Routine annual mammography screening. 1 year F/U This patient's information was entered into a reminder system with a target due date for their next mammogram.
== END 2023-05-15 08:09 | disposition home or self-care (01) ==
LOC: HO.MAMMO 08:08
PROVIDERS: PCP Internal Medicine; Visit Provider Internal Medicine
DX: Z12.31 Encounter for screening mammogram for malignant neoplasm of breast (principal)
CPT/HCPCS: 77063; 77067

== ENCOUNTER → 2023-05-15 08:15 | Outpatient (BNV) | payer OTHER, SELFPAY | PROVIDERS: PCP Internal Medicine; Visit Provider Radiology Diagnostic Radiology | DX: Z12.31 Encounter for screening mammogram for malignant neoplasm of breast (principal) | CPT/HCPCS: 77063; 77067 ==

== ENCOUNTER 2023-06-02 08:59 | Emergency (ER) | payer OTHER, SELFPAY ==
[2023-06-02 09:05] VITALS: BP 155/80; PULSE 77; RESP 19; TEMP 36.6; O2SAT 98; BMI 21.3
--- NOTE | 2023-06-02 09:32 | ED.FEMALEGU ---
HPI - Female Genitourinary General Chief complaint: Urogenital-Female Stated complaint: MANAGER FLIGHT OPERATIONS issue Time Seen by Provider: 06/02/23 09:16 Source: patient Mode of arrival: ambulatory Limitations: no limitations History of Present Illness HPI Narrative: Patient is a 63 year old female who presents to the ED due to MANAGER FLIGHT OPERATIONS issues. She reports having unprotected vaginal sex with a male partner about a week and a half ago. Since then, she's been experiencing UTI symptoms, such as painful urination and a change in discharge. She states that her discharge has been green and slimy. She reports a subjective fever and chills with mild abdominal tenderness. She has tried Azo and OTC anti-fungal cream, which have not alleviated her symptoms. She denies vomiting or experiencing nausea. She also noticed multiple red, itchy, lesions on her left breast a couple of days ago, which she states does not look similar to the eczema she experiences. Her LMP was more than 20 years ago. Related Data Home Medications Medication Instructions Recorded Confirmed coenzyme Q10 100 mg capsule 100 mg PO BEDTIME 11/05/20 04/19/23 (CoQ-10) multivitamin 1 tab PO DAILY 11/05/20 04/19/23 naproxen sodium 220 mg capsule 220 mg PO BID PRN Pain 11/05/20 04/19/23 (Aleve) rosuvastatin 10 mg tablet 1 tab PO BEDTIME 11/05/20 04/19/23 Zetia 04/19/23 04/19/23 ibuprofen 04/19/23 Previous Rx's Medication Instructions Recorded cefuroxime axetil 500 mg tablet 500 mg PO BID #14 tabs 06/02/23 doxycycline monohydrate 100 mg 100 mg PO BID #14 tabs 06/02/23 tablet metronidazole 500 mg tablet 500 mg PO BID 7 days #14 tabs 06/02/23 Allergies Allergy/AdvReac Type Severity Reaction Status Date / Time No Known Allergies Allergy Verified 06/02/23 09:05 Review of Systems Review of Systems: Yes all other systems are reviewed and are negative Constitutional: Constitutional: Reports no additional constitutional complaints, Denies body ache(s), Reports chills, Reports fever(s), Denies headache(s) and Denies weakness Eyes: Eyes: Reports no additional eye complaints and Denies change in vision ENT: Reports system reviewed and no additional complaints, except as documented, Denies dizziness, Denies headache(s), Denies nasal congestion, Denies nasal discharge and Denies neck pain Cardiovascular: Cardiovascular: Reports no additional cardiovascular complaints, Denies chest pain, Denies leg edema and Denies dyspnea Respiratory: Respiratory: Reports no additional respiratory complaints, Denies cough and Denies dyspnea Gastrointestinal: Gastrointestinal: Reports no additional gastrointestinal complaints, Reports abdominal pain, Denies diarrhea, Denies nausea and Denies vomiting Genitourinary: Genitourinary: Reports no additional female genitourinary complaints, Reports dysuria and Reports vaginal discharge Musculoskeletal: Musculoskeletal: Reports no additional musculoskeletal complaints, Denies back pain, Denies arthralgias, Denies joint swelling, Denies neck pain, Denies numbness and Denies tingling Integumentary/Breasts: Skin/Breast: Reports system reviewed and no additional complaints, except as docu, Reports pruritus and Reports rash Neurologic: Reports system reviewed and no additional complaints, except as documented, Denies Abnormal speech present, Denies dizziness, Denies headache(s), Denies numbness, Denies tingling and Denies weakness PMFSH Past Medical History Medical History (Updated 06/02/23 @ 11:23 by Joy Tian NP) Cocaine abuse Back pain History of depression History of pernicious anemia Hyperlipidemia Bulimia Anorexia IBS (irritable bowel syndrome) Fibromyalgia Surgical History (Updated 04/27/23 @ 09:13 by Flaca Radford Alyssa) History of excision of mass (04/19/23) H/O colonoscopy Hx of cataract extraction Hx of breast implants, bilateral Hx of cholecystectomy Hx of tonsillectomy Social History Social History (Updated 04/19/23 @ 08:13 by Mila Grijalva MD) Are you a primary youth care professional to a significant other at home: No Do you presently have visiting nurse or other home services: No Patient Tobacco Use Status: Current someday Tobacco user Tobacco use type: Cigarette Cigarette Packs Per Day: 0 Cigarettes Per Day: 0 Years Smoked: 13 Second Hand Smoke Exposure: No Advance Directives: No Advance Directives Information Provided: Yes 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al status: employed 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: [employer]t [employer] Physical Exam Vital Signs: Vital Signs: Last Vital Signs Temp 98 F 06/02/23 09:05 Pulse 77 06/02/23 09:05 Resp 19 06/02/23 09:05 BP 155/80 H 06/02/23 09:05 Pulse Ox 98 06/02/23 09:05 O2 Del Method Room Air 06/02/23 09:05 BMI result Body Mass Index 21.3 Const: General: cooperative, healthy appearing, comfortable and no acute distress Orientation/consciousness: patient oriented x3 Limitations: no limitations HEENT: Head: Yes normal to inspection Ears: hearing grossly normal bilaterally General nose exam: Normal external nose present Face and sinus: Yes normal facial exam Mouth: Normal oral and palatal mucosa present Throat: Yes posterior oropharynx normal Eyes: General: appearance normal, both eyes and all related structures Pupils: Equal, round and reactive pupils present Neck: Neck: Yes normal visual inspection Chest: Other: 3 small flat lesions over left upper lateral breast Resp: Effort & Inspection: normal respiratory effort Auscultation: clear to auscultation bilaterally Cardio: Rate: regular rate Rhythm: regular rhythm Peripheral pulses: Peripheral pulses 2+ throughout GI: Inspection: Yes normal to inspection Palpation (GI): Soft to palpation, Tenderness to palpation present (GI) in the LLQ; with no rebound tenderness and no guarding Auscultation: normal bowel sounds : Other: Done in conjunction with Grieslda PA-S there is a small amount of yellow green discharge noted no cervical motion tenderness or adnexal tenderness on exam External Female Exam: normal external appearance Speculum Exam - Vagina: normal appearance of the vagina Speculum Exam - Cervix: normal appearance of the cervix Bimanual exam- vagina & uterus: normal bimanual exam and no cervical motion tenderness Bimanual Exam- Adnexa, other: normal adnexae and no tenderness Back/Spine/Pelvis: Thoracic/Lumbar Spine: thoracic and lumbar spine normal to inspection Skin: General skin exam: no rashes or lesions noted Neuro: General: patient oriented x3, no focal motor deficits and normal sensation to monofilament Cranial nerves: Yes Equal, round and reactive pupils present Cognition (Neuro): normal cognition Speech: No Abnormal speech present Gait exam (Neuro): Normal gait present Motor exam (neuro): 5/5 motor strength present throughout Extrem: General: Yes normal to inspection Course Course Course Narrative: pelvic exam with no cervical motion tenderness or adnexal type tenderness. Low concern for PID or TOA. 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 She reports having unprotected vaginal sex with a male partner about a week and a half ago. Since then, she's been experiencing UTI symptoms, such as painful urination and a change in discharge. She states that her discharge has been green and slimy. She reports a subjective fever and chills with mild abdominal tenderness. She has tried Azo and OTC anti-fungal cream, which have not alleviated her symptoms. She denies vomiting or experiencing nausea. She also noticed multiple red, itchy, lesions on her left breast a couple of days ago, which she states does not look similar to the eczema she experiences. Her LMP was more than 20 years ago. Mild TTP over LLQ with no rebound or guarding. VSS Will need pelvic exam, UA, testing for CT/NG, BV panel patient will be treated prophylactically with ceftriaxone IM, doxycycline p.o., flagyl PO reviewed worrisome signs and symptoms with the patient and when to return to the emergency room. Comfortable plan for discharge home. Differential Diagnosis Differential Diagnoses: The differential diagnosis associated with the presentation includes UTI STI - gonorrhea, chlamydia Trichomoniasis Bacterial vaginosis PID Tubo-ovarian abscess Admission/Observation Consideration of admission/observation: Escalation of care including admission/observation considered patient afebrile, nontoxic-appearing, no need for further imaging or admission for IV antibiotics Lab Data [facility] Lab Attestation statement: I reviewed the patient's lab results. +uti Labs: Lab Results 06/02/23 Range/Units 10:58 Urine Color Dark Yellow Urine Appearance Clear Urine pH 6.5 (5.0-9.0) Ur Specific [place] >= 1.030 H (1.005-1.025) Urine Protein 30 (1+) H (Neg-Trace) mg/dL Urine Glucose (UA) Negative (Negative) mg/dL Urine Ketones Negative (Negative) mg/dL Urine Blood Negative (Negative) Urine Nitrite Negative (Negative) Ur Leukocyte Esterase Moderate (2+) H (Negative) Urine RBC 3-5 H (0-2) /HPF Urine WBC 21-50 H (0-5) /HPF Ur Squamous Epith Cells 3-5 (0-2) /HPF Urine Bacteria None Seen (None Seen) Hyaline Casts 0-2 (0-2) /LPF Tests considered The following testing was considered but not selected: no fevers, focal abdominal pain to suggest concern for TOA and need for ultrasound Prescription Management I considered prescription management with: Antibiotic STI symptom,s testing pending will treat prophylactically with antibiotics Discharge Plan Discharge Clinical Impression: Concern about STD in female without diagnosis, Urinary tract infection Patient Disposition: Home, Self-Care Instructions: Sexually Transmitted Diseases (ED), Safe Sex Practices (ED), Urinary Tract Infection in Women (ED) Additional Instructions: take all the medications as prescribed. take medicines of food Return for any fever, vomiting, worsening abdominal pain results for the STD testing takes 1-2 days. We will call you if they are positive. Prescriptions: New doxycycline monohydrate 100 mg tablet 100 mg PO BID Qty: 14 0RF metronidazole 500 mg tablet 500 mg PO BID 7 Days Qty: 14 0RF cefuroxime axetil 500 mg tablet 500 mg PO BID Qty: 14 0RF No Action multivitamin Tablet 1 tab PO DAILY coenzyme Q10 [CoQ-10] 100 mg Capsule 100 mg PO BEDTIME rosuvastatin 10 mg tablet 1 tab PO BEDTIME naproxen sodium [Aleve] 220 mg Capsule 220 mg PO BID PRN (Reason: Pain) Zetia ibuprofen Referrals: Berta Bland MD [Primary Care Provider] - 10 days Interventions: ED Discharge Assessment Last Done: 06/02/23 11:31 Discharge Date/Time: 06/02/23 11:31
[2023-06-02] MEDS: cefTRIAXone sodium 500 MG, Lidocaine HCl 1 % MPF 1 ML IM (11:05)
[2023-06-02 11:13] LABS: Appearance Urine Clear; Color Urine Dark Yellow; Glucose Urine UA Negative (Negative); Leukocyte Esterase Urine Moderate (2+) (Negative); Nitrite Urine Negative (Negative); PH 6.5 (5.0-9.0); Specific Gravity - Urine >= 1.030 (1.005-1.025); UMIC TRIGGER UACC YES; Urine Blood Negative (Negative); Urine Ketones Negative (Negative); Urine Protein 30 (1+) mg/dL (Neg-Trace)
[2023-06-02 11:18] LABS: Bacteria Urine None Seen (None Seen); Hyaline Casts Urine 0-2 /LPF (0-2); UACC Culture Trigger YES; WBC Urine 21-50 /HPF (0-5)
[2023-06-02 12:35] LABS: BV Int Neg Control Negative (Negative); BV Int Pos Control Positive (Positive)
[2023-06-02 12:58] LABS: CT PCR NOT DETECTED (Not Detect.); NG PCR NOT DETECTED (Not Detect.)
== END 2023-06-02 11:31 | disposition home or self-care (01) ==
PROVIDERS: Nurse Practitioner Family; Emergency Provider Emergency Medicine; PCP Internal Medicine
DX: N39.0 Urinary tract infection, site not specified (principal); Z20.2 Contact with and (suspected) exposure to infections with a predominantly sexual mode of transmission; E78.5 Hyperlipidemia, unspecified; F14.10 Cocaine abuse, uncomplicated; F17.210 Nicotine dependence, cigarettes, uncomplicated
CPT/HCPCS: 0353U; 81001; 87086; 87480; 87510; 87660; 96372; 99282; 99284; J0696

== ENCOUNTER 2023-06-11 11:31 | Outpatient (AMB) | payer OTHER, SELFPAY ==
[2023-06-11 11:37] VITALS: BMI 21.3
--- NOTE | 2023-06-11 11:37 | MHC.OFFVIS ---
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 States its both hands but her left is worse at the moment. Patient reports she has had symptoms on and off for the last 5 years. Patient was a [employer] worker and felt numbness increase. At the moment states she has constant numbness and wakes up with stiffness in hands. EMG done. Patient would like to discuss surgery vs injection. 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 The patient reports numbness and tingling in the bilateral hands. However the left hand is worse then the right hand. She claims the numbness is chronic and she wakes up with stiffness bilaterally. She would like to discuss left hand carpal tunnel release. [facility] Medical History (Updated 06/11/23 @ 13:35 by Cate Cadena) Cocaine abuse Back pain History of depression History of pernicious anemia Hyperlipidemia Bulimia Anorexia IBS (irritable bowel syndrome) Fibromyalgia Surgical History (Updated 04/27/23 @ 09:13 by Flaca Radford Alyssa) History of excision of mass (04/19/23) H/O colonoscopy Hx of cataract extraction Hx of breast implants, bilateral Hx of cholecystectomy Hx of tonsillectomy Social History (Reviewed 06/11/23 @ 11:41 by Amira Frost [facility] [place]) Are you a primary patient care technician instructor to a significant other at home: No Do you presently have visiting nurse or other home services: No Patient Tobacco Use Status: Current someday Tobacco user Tobacco use type: Cigarette Cigarette Packs Per Day: 0 Cigarettes Per Day: 0 Years Smoked: 13 Second Hand Smoke Exposure: No 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al status: employed 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 No ecchymosis, erythema, or edema. Able to perform full finger flexion, extension, abduction, adduction, finger cross, okay sign, and thumbs up without deficit. Able to make a closed fist. Capillary refill is brisk. Radial pulse intact. Continued tingling in the thumb, index, middle, and ring digits bilaterally. Positive Tinel?s, bilateral carpal tunnel. Assessment & Plan Assessment & Plan (1) Left carpal tunnel syndrome: Code(s): G56.02 - Carpal tunnel syndrome, left upper limb Plan Ms. Arevalo is a 63-year-old female who presents in the office today, as a new patient, for an evaluation of left hand pain. The patient reports numbness and tingling in the bilateral hands. However the left hand is worse then the right hand. She claims the numbness is chronic and she wakes up with stiffness bilaterally. She would like to discuss left hand carpal tunnel release. The patient would like to meet with Dr. Wynne to further discuss surgery and time out of work. 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 Follow up will be with Dr. Wynne, or sooner if needed. EMG of the left upper extremity, obtained on 05/08/2023, revealed: Mild to moderate bilateral carpal tunnel syndrome. Significantly worse compared to the study done in 2021. Moderate axonal loss in the ulnar nerves bilaterally. Normal EMG in the left C5-T1 innervated muscles. Patient Instructions: Scribed for Katie Escobar PA-C by Cate Cadena resident medical officer, on 06/11/2023 at 11:33 am, EST. Coding Level of Care Code New Pt Level 3 (30592) Diagnoses Left carpal tunnel syndrome G56.02
== END 2023-06-11 12:00 | disposition home or self-care (01) ==
PROVIDERS: PCP Internal Medicine; Visit Provider Physician Assistant
DX: G56.02 Carpal tunnel syndrome, left upper limb (principal)
CPT/HCPCS: 99203

== ENCOUNTER → 2023-06-11 11:31 | Outpatient (BNVA) | payer OTHER, SELFPAY | PROVIDERS: PCP Internal Medicine; Visit Provider Physician Assistant ==

== ENCOUNTER 2023-07-18 10:45 | Outpatient (AMB) | payer OTHER, SELFPAY ==
[2023-07-18 10:48] VITALS: BMI 21.3
--- NOTE | 2023-07-18 10:48 | A.OFFVIS_ITS ---
Intake Vital Signs 07/18/23 10:48 Height 5 ft 6 in Weight 132 lb BMI 21.3 Intake Visit Reasons: OV-Left CTS-B/L hand CTS? Intake Note: Hailey 63 yr old female presents today for to meet with Dr. Wynne to further discuss surgery and time out of work. 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 Patient was previously seen with Carmen Wilson s/p EMG study. Allergies No Known Allergies Allergy (Verified 07/18/23 10:56) HPI OV-Left CTS-B/L hand CTS? HPI Details Hailey is a 63 year old right hand dominant woman who presents for a NCS review of her bilateral hand numbness. She complains of numbness in the median nerve distribution bilaterally, L>R. Her symptoms are intermittent, but daily, worse at night, though she has a constant tingling in her fingertips. She says she does not have trouble with numbness and tingling in her small fingers bilaterally. She also complains of hand cramping and medial epicondylitis, which is being managed by her PCP. 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 She has a hx of Fibromyalgia [facility] Medical History (Updated 07/18/23 @ 11:16 by Jack Meléndez) Cocaine abuse Back pain History of depression History of pernicious anemia Hyperlipidemia Bulimia Anorexia IBS (irritable bowel syndrome) Fibromyalgia Surgical History (Updated 04/27/23 @ 09:13 by Flaca Radford Alyssa) History of excision of mass (04/19/23) H/O colonoscopy Hx of cataract extraction Hx of breast implants, bilateral Hx of cholecystectomy Hx of tonsillectomy Social History Are you a primary healthcare technician to a significant other at home: No Do you presently have visiting nurse or other home services: No Patient Tobacco Use Status: Current someday Tobacco user Tobacco use type: Cigarette Cigarette Packs Per Day: 0 Cigarettes Per Day: 0 Years Smoked: 13 Second Hand Smoke Exposure: No 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al status: employed 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: Rt handed/[employer] Review of Systems Const All systems reviewed & are unremarkable except as noted in HPI and below Physical Exam Vital Signs: BMI result Body Mass Index 21.3 Const General: cooperative, healthy appearing and no acute distress Orientation/consciousness: patient oriented x3 HEENT Head: Yes normocephalic and Yes atraumatic Eyes EOM: EOMs intact bilaterally Resp Effort & Inspection: normal respiratory effort and able to speak in complete sentences Cardio Jugular venous distension: no JVD Skin General skin exam: turgor normal Rashes: no rashes Neuro General: patient oriented x3 Extrem Other: Evaluation of bilateral Upper Extremity: The patient is alert, oriented, and in no acute distress Neuro: Median, Ulnar, Radial nerves motor and sensory grossly intact. With regards to sensation, it should be noted that she says she has a tingling sensation to the tips of the fingers bilaterally with the exception of the small fingers. She says that this tingling sensation is constant. No thenar or intrinsic wasting. Good finger cross and good APB muscle belly firing bilaterally. Vascular: Cap refill brisk ROM: She can make a fist and extend all her digits No locking or catching. Skin: No lacerations or abrasions. General: No Ecchymosis. No Erythema or evidence of infection. She does have some early generalized arthritic changes seen particularly in the D IP joints. Nerve Conduction Study: mild-moderate bilateral carpal tunnel syndrome, significantly worse compared to study done in 2021 Moderate axonal loss in the ulnar nerves bilaterally Dr. Garland 04/03/23 Psych Appearance: grossly normal Affect: normal affect Attitude: cooperative Assessment & Plan Assessment & Plan (1) Left carpal tunnel syndrome: Code(s): G56.02 - Carpal tunnel syndrome, left upper limb (2) Carpal tunnel syndrome of right wrist: Code(s): G56.01 - Carpal tunnel syndrome, right upper limb (3) Fibromyalgia: Code(s): M79.7 - Fibromyalgia Plan Assessment & Plan: 1. Left Carpal tunnel syndrome, mild-moderate Symptoms intermittent, but daily, worse at night 2. Right Carpal tunnel syndrome, mild-moderate Symptoms intermittent, but daily, worse at night I educated her about this condition I discussed operative and non-operative treatment options The patient would like to proceed with surgery, beginning with the left side The risks and benefits of operative treatment were discussed with the patient and the patient wishes to proceed with surgery. These risks include, but are not limited to risk of damage to blood vessels, nerves, tendons, infection, recurrence, incomplete relief of preoperative symptoms, persistent pain, possible need for further surgery and the risks associated with regional blocks and anesthesia. The plan is to take the patient to the operating room sometime in the next few weeks for the following procedures: 1. Left carpal tunnel release, under local All of the preoperative paperwork including the consent was filled out today. All the patient's questions were answered. 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 I explained that after surgery she will have a 2 lb weight limit for 4 weeks and will need to keep the wound clean and dry. 3. Moderate axonal loss in the ulnar nerves bilaterally Per NCS from 04/03/23 No complaints of numbness or tingling in the ulnar nerve distribution We will observe and manage this conservatively at this time Scribed for Maria T Wynne MD by Jack Meléndez, medical insurance claims processor, on 07/18/23 at 11:00 AM, EST. Coding Level of Care Code Est Pt Level 4 (44981) Diagnoses Left carpal tunnel syndrome G56.02 Carpal tunnel syndrome of right wrist G56.01 Fibromyalgia M79.7
== END 2023-07-18 11:33 | disposition home or self-care (01) ==
PROVIDERS: PCP Internal Medicine; Visit Provider Orthopaedic Surgery
DX: G56.02 Carpal tunnel syndrome, left upper limb (principal); G56.01 Carpal tunnel syndrome, right upper limb; M79.7 Fibromyalgia
CPT/HCPCS: 99214

== ENCOUNTER → 2023-07-18 10:45 | Outpatient (BNVA) | payer OTHER, SELFPAY | PROVIDERS: PCP Internal Medicine; Visit Provider Orthopaedic Surgery | DX: G56.02 Carpal tunnel syndrome, left upper limb (principal); G56.01 Carpal tunnel syndrome, right upper limb; M79.7 Fibromyalgia | CPT/HCPCS: 99212 ==

== ENCOUNTER 2023-09-07 10:49 | Emergency (ER) | payer OTHER, SELFPAY ==
--- NOTE | ~2023-09-07 | XR_ITS ---
EXAMINATION: XR CHEST CLINICAL INFORMATION: Shortness of breath. COMPARISON: CXR from 11/24/2015 TECHNIQUE: 2 views of the chest were obtained. FINDINGS: Lungs are well-inflated and clear. Trachea is midline in position. No interstitial disease, consolidation or mass. No pleural effusion or pneumothorax. Cardiac silhouette and pulmonary vessels are normal in size. The mediastinum and chinedu have normal contour. There are bilateral breast implants in place. There is mild multilevel discovertebral degenerative change of the thoracic spine. Cholecystectomy clips are present in the right upper abdomen. XR/XR chest 2V IMPRESSION: No evidence of pneumonia or pulmonary edema. No acute cardiopulmonary abnormality.
--- NOTE | 2023-09-07 11:00 | ECG_ITS ---
Test Reason : cp Blood Pressure : / mmHG Vent. Rate : 070 BPM Atrial Rate : 070 BPM P-R Int : 122 ms QRS Dur : 076 ms QT Int : 396 ms P-R-T Axes : -10 014 057 degrees QTc Int : 427 ms Normal sinus rhythm Low voltage QRS Borderline ECG No previous ECGs available Referred By: Generic ED Physician Electronically Signed By:Bry Joe
[2023-09-07 11:09] VITALS: BP 154/87; PULSE 75; RESP 20; TEMP 36.5; O2SAT 98; BMI 25.8
--- NOTE | 2023-09-07 11:09 | ED_ITS ---
HPI - General Adult General Chief complaint: General Medical Stated complaint: Chest Pain x 3 Days Migraine Etc Time Seen by Provider: 09/07/23 12:27 Source: patient Mode of arrival: ambulatory Limitations: no limitations History of Present Illness HPI narrative: 63-year-old female history of IBS, fibromyalgia, costochondritis, pernicious anemia, migraines who presents emergency department for evaluation of chest pain, back pain and headaches. Patient states for the past 2 days she has had a constant migraine headache. She describes as a pressure-like pain behind her eyes which is 8/10 at its worst. She also has pain in her anterior chest. She states she feels like there is a or going from the front back or chest. The pain is a constant, sharp pain which is 8/10 and worse with breathing and worse with movement. Patient states that she does have fibromyalgia and she states the pain is different than her fibromyalgia pain. Patient has been taking naproxen with no relief of her pain. She denied fever, chills, cough, sore throat, nausea, vomiting or diarrhea. Related Data Home Medications Medication Instructions Recorded Confirmed coenzyme Q10 100 mg capsule 100 mg PO BEDTIME 11/05/20 04/19/23 (CoQ-10) multivitamin 1 tab PO DAILY 11/05/20 04/19/23 naproxen sodium 220 mg capsule 220 mg PO BID PRN Pain 11/05/20 04/19/23 (Aleve) rosuvastatin 10 mg tablet 1 tab PO BEDTIME 11/05/20 04/19/23 Zetia 04/19/23 04/19/23 ibuprofen 04/19/23 Previous Rx's Medication Instructions Recorded cefuroxime axetil 500 mg tablet 500 mg PO BID #14 tabs 06/02/23 metronidazole 500 mg tablet 500 mg PO BID 7 days #14 tabs 06/02/23 metoclopramide HCl 10 mg tablet 10 mg PO Q6H PRN nausea and 09/07/23 (Reglan) vomiting #14 tabs Allergies Allergy/AdvReac Type Severity Reaction Status Date / Time No Known Allergies Allergy Verified 07/18/23 10:56 Review of Systems 2 Review of Systems: Yes all other systems are reviewed and are negative PMFSH Past Medical History [facility] Narrative: Social history: She denies tobacco alcohol and drug use. Medical History Cocaine abuse Back pain History of depression History of pernicious anemia Hyperlipidemia Bulimia Anorexia IBS (irritable bowel syndrome) Fibromyalgia Surgical History History of excision of mass (04/19/23) H/O colonoscopy Hx of cataract extraction Hx of breast implants, bilateral Hx of cholecystectomy Hx of tonsillectomy Social History Social History Are you a primary pharmacy customer care specialist to a significant other at home: No Do you presently have visiting nurse or other home services: No Patient Tobacco Use Status: Current someday Tobacco user Tobacco use type: Cigarette Cigarette Packs Per Day: 0 Cigarettes Per Day: 0 Years Smoked: 13 Smoked in Last 30 Days: No Second Hand Smoke Exposure: No Use of substances other than those prescribed or required for medical reasons: No Advance Directives: No Advance Directives Information Provided: No Patient : No 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al status: employed 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: Rt handed/[employer] Physical Exam ED Vital Signs: Vital Signs - 24 hr 09/07/23 11:09 09/07/23 11:59 09/07/23 13:53 Temperature 97.7 F 97.9 F Pulse Rate 75 71 62 Respiratory Rate 20 16 16 Blood Pressure 154/87 H 138/77 143/84 H Pulse Oximetry 98 99 99 Oxygen Delivery Method Room Air Room Air Room Air BMI result Body Mass Index 25.8 Vital signs revealed elevated blood pressure of 154/87 otherwise unremarkable Exam: General: Awake, alert in no distress Head: Normocephalic, atraumatic EENT: PERRL, Lids normal, sclera normal, conjunctiva normal, nose normal , ears normal, throat without erythema or exudates Neck: Supple, no adenopathy, no trachea midline or C-spine tenderness Lung: breath sounds symmetric, no wheezing, no rales or rhonchi Chest: symmetric movement, moderate sternal and costochondral joint tenderness Heart: regular rate and rhythm, normal S1, S2 no murmurs or rubs Abdomen: soft, non-tender, nondistended, normal bowel sounds Back: no vertebral tenderness, no CVAT Extremities: no deformities, moves all extremities symmetrically Neuro: Awake, alert, oriented, normal speech, cranial nerves intact, moves all extremities symmetrically Psych: Pleasant, cooperative Course Course Course Narrative: RME performed by Patti Hunter PA-C. Patient is a 63 year old assigned female at presenting to the emergency department with back spasms and chest pain. Patient states that she has fibromyaglia that causes intercostal chondritis alot. Labs, imaging, and swabs ordered. Patient placed back in the waiting room pending room availability and results. Medical Decision Making Medical Decision Making [facility] Narrative: 63-year-old female history of IBS, fibromyalgia, costochondritis, pernicious anemia, migraines who presents emergency department for evaluation of chest pain, back pain and headaches x3 days. Patient's examination did reveal tenderness palpation of her anterior chest wall consistent with costochondritis. Neurologic exam was nonfocal. Patient's laboratory evaluation was unremarkable. Patient's chest x-ray revealed no acute disease. Patient's presentation is consistent with migraine headache and costochondritis. I did discuss treatment costochondritis and migraines with the patient. Patient was advised to stop taking naproxen to take her diclofenac for the costochondritis. She was also started on the following migraine regimen every 6 hours: Reglan 10 mg, Benadryl 50 mg, Excedrin migraine 2 tablets. She was given printed and verbal instructions discharged home. Differential Diagnosis Differential Diagnoses: The differential diagnosis associated with the presentation includes Differential diagnosis includes was not limited to myocardial infarction, myocardial ischemia, costochondritis, pneumonia, migraine headache, fibromyalgia Admission/Observation Consideration of admission/observation: Escalation of care including admission/observation considered Lab Data MDM Lab Attestation statement: I reviewed the patient's lab results. My interpretation patient's laboratory evaluation is as follows: CBC, CMP, were normal. Troponin was below detectable limits. Urinalysis was positive for leukocyte esterase microscopic was negative. COVID-19, influenza and RSV were negative. 09/07/23 11:18 09/07/23 11:18 Labs: Lab Results 09/07/23 09/07/23 Range/Units 11:18 12:14 WBC 6.1 (4.8-10.8) X10*3/uL RBC 4.79 (4.20-5.50) X10*6/uL Hgb 14.4 (12.0-16.0) g/dl Hct 42.8 (37.0-47.0) % MCV 89.4 (80.0-98.0) fL MCH 30.1 (27.0-33.0) pg MCHC 33.6 (31.0-35.0) g/dl RDW 12.0 (11.0-16.0) % Plt Count 219 (160-400) X10*3/uL MPV 9.5 (9.4-12.3) fL Immature Gran % (Auto) 0.2 (0.0-0.4) % Neut % (Auto) 63.7 (45-73) % Lymph % (Auto) 24.0 (20-40) % [place] % (Auto) 5.8 (2-11) % Eos % (Auto) 5.6 H (0-4) % Baso % (Auto) 0.7 (0-2) % Lymph # (Auto) 1.5 (1.2-4.9) X10*3/uL [place] # (Auto) 0.4 (0.1-1.2) X10*3/uL Eos # (Auto) 0.3 (0.0-0.4) X10*3/uL Baso # (Auto) 0.0 (0.0-0.2) X10*3/uL Abs Immat Gran (auto) 0.01 (0.00-0.03) X10*3/uL Absolute Neuts (auto) 3.9 (2.0-8.3) x10*3/uL Absolute Nucleated RBC 0.000 (0.0-0.012) X10*3/uL Nucleated RBC % (auto) 0.0 (0.0-0.2) /100WBC PT 10.2 L (11.1-13.3) SEC INR 0.8 L (0.9-1.1) APTT 32.4 (26.0-36.4) SEC Sodium 145 (135-145) mmol/L Potassium 4.6 (3.3-5.1) mmol/L Chloride 106 (96-108) mmol/L Carbon Dioxide 30 H (22-29) mmol/L Anion Gap 14 (12-20) BUN 18 H (9-16) mg/dL Creatinine 0.85 (0.5-1.4) mg/dL Estim Creat Clear Calc 69.0 Estimated GFR > 60 Random Glucose 95 (60-115) mg/dL Calcium 10.7 H D (8.4-10.2) mg/dL Magnesium 2.7 H (1.6-2.6) mg/dL Total Bilirubin 0.5 (0.0-1.0) mg/dL AST 11 (5-31) U/L ALT 18 (0-31) U/L Alkaline Phosphatase 90 (39-117) U/L Troponin I High Sens < 2.7 (<3.5-17.0) ng/L B-Natriuretic Peptide < 10 (<100) pg/mL Total Protein 7.2 (6.5-8.0) g/dL Albumin 4.6 (3.5-5.0) g/dL Urine Color Yellow Urine Appearance Turbid Urine pH 7.5 (5.0-9.0) Ur Specific [place] 1.025 (1.005-1.025) Urine Protein Negative (Neg-Trace) mg/dL Urine Glucose (UA) Negative (Negative) mg/dL Urine Ketones Negative (Negative) mg/dL Urine Blood Negative (Negative) Urine Nitrite Negative (Negative) Ur Leukocyte Esterase Moderate (2+) H (Negative) Urine RBC 0-2 (0-2) /HPF Urine WBC 0-5 (0-5) /HPF Ur Squamous Epith Cells 6-10 (0-2) /HPF Other Crystals Present Urine Bacteria None Seen (None Seen) Hyaline Casts 0-2 (0-2) /LPF Influenza Type A (PCR) NEGATIVE (Negative) Influenza Type B (PCR) NEGATIVE (Negative) RSV RNA Qual (PCR) NEGATIVE (Negative) SARS-CoV-2 RNA (RT-PCR) NEGATIVE (Negative) Independent Interpretation I performed an independent interpretation of an: Plain X-Ray Interpretation: My interpretation patient's chest x-ray is as follows: No acute disease My independent interpretation patient's 12 EKG is as follows: Normal sinus rhythm rate of 70, normal NJ interval, QRS duration QTC interval, no ST segment elevation, no ST segment depression, no significant T-wave abnormalities, no PACs, no PVCs-this is a normal EKG Radiology Impression Discussion of test interpretation with radiology: I have reviewed the radiologist's reading. Radiologist Impression: XR chest 2V IMPRESSION: No evidence of pneumonia or pulmonary edema. No acute cardiopulmonary abnormality. Dictated By: Ramses Del Rosario MD Chronic Conditions Patient?s care impacted by: Other (Fibromyalgia) Discharge Plan Discharge Clinical Impression: Migraine, Acute costochondritis Patient Disposition: Home, Self-Care Instructions: Migraine Headache (ED), Costochondritis (ED) Additional Instructions: Continue taking diclofenac as prescribed by your doctor Stop taking naproxen Your symptoms are consistent with a migraine. I want you to take the following 3 medications together every 6 hours as needed for headache, nausea or vomiting. Reglan (metoclopramide) in 10 mg, 1 pill Benadryl 25 mg, 2 pills Excedrin migraine, 2 pills. After you take these medications, lie down in a dark quiet room and try to fall asleep. These medications will make you sleepy, do not drive or work after taking these medications. Follow-up with your doctor in 2 days. Please return to the emergency department if your symptoms get worse or if you develop any symptoms that are concerning to you. Please see the work Prescriptions: New metoclopramide HCl [Reglan] 10 mg tablet 10 mg PO Q6H PRN (Reason: nausea and vomiting) Qty: 14 0RF No Action multivitamin Tablet 1 tab PO DAILY coenzyme Q10 [CoQ-10] 100 mg Capsule 100 mg PO BEDTIME rosuvastatin 10 mg tablet 1 tab PO BEDTIME naproxen sodium [Aleve] 220 mg Capsule 220 mg PO BID PRN (Reason: Pain) Zetia ibuprofen metronidazole 500 mg tablet 500 mg PO BID 7 Days Qty: 14 0RF cefuroxime axetil 500 mg tablet 500 mg PO BID Qty: 14 0RF Stand Alone Forms: Work/School Release
[2023-09-07 11:23] LABS: MANUAL DIFF FLAG NO
[2023-09-07 11:27] LABS: Basophils Percent Auto 0.7 % (0-2); Eosinophils Absolute Auto 0.3 X10*3/uL (0.0-0.4); Eosinophils Percent Auto 5.6 % (0-4); Hematocrit 42.8 % (37.0-47.0); Hemoglobin 14.4 g/dl (12.0-16.0); Imm Gran Abs Auto 0.01 X10*3/uL (0.00-0.03); Imm Gran Pct Auto 0.2 % (0.0-0.4); Lymphocytes Absolute Auto 1.5 X10*3/uL (1.2-4.9); Mean Corpuscular HGB Conc 33.6 g/dl (31.0-35.0); Mean Corpuscular Hemoglobin 30.1 pg (27.0-33.0); Mean Corpuscular Volume 89.4 fL (80.0-98.0); Mean Platelet Volume 9.5 fL (9.4-12.3); Monocytes Absolute Auto 0.4 X10*3/uL (0.1-1.2); Monocytes Percent Auto 5.8 % (2-11); Neutrophils Absolute Auto 3.9 x10*3/uL (2.0-8.3); Neutrophils Percent Auto 63.7 % (45-73); Platelet Count 219 X10*3/uL (160-400); Red Blood Count 4.79 X10*6/uL (4.20-5.50); White Blood Count 6.1 X10*3/uL (4.8-10.8)
[2023-09-07 11:31] LABS: INTERNATIONAL NORM RATIO 0.8 (0.9-1.1); Prothrombin Time 10.2 SEC (11.1-13.3)
[2023-09-07 11:34] LABS: Partial Thromboplastin Time 32.4 SEC (26.0-36.4)
[2023-09-07 11:44] LABS: Alanine Aminotransferase 18 U/L (0-31); Albumin Level 4.6 g/dL (3.5-5.0); Alkaline Phosphatase 90 U/L (39-117); Anion Gap 14 (12-20); Aspartate Amino Transferase 11 U/L (5-31); Bilirubin Total 0.5 mg/dL (0.0-1.0); Blood Urea Nitrogen 18 mg/dL (9-16); Calcium 10.7 mg/dL (8.4-10.2); Carbon Dioxide 30 mmol/L (22-29); Chloride 106 mmol/L (96-108); Estimated Glomerular Filt Rate > 60; Glucose Random 95 mg/dL (60-115); Magnesium 2.7 mg/dL (1.6-2.6); Potassium 4.6 mmol/L (3.3-5.1); Sodium 145 mmol/L (135-145); Total Protein 7.2 g/dL (6.5-8.0)
[2023-09-07 11:50] LABS: B Type Natriuretic Peptide < 10 pg/mL (<100)
[2023-09-07 11:53] LABS: Troponin-I High Sensitivity < 2.7 ng/L (<3.5-17.0)
[2023-09-07 11:59] VITALS: BP 138/77; PULSE 71; RESP 16; TEMP 36.6; O2SAT 99
--- NOTE | 2023-09-07 12:00 | PC.NURSE ---
a&ox4, vss and up to date, nsr on the associate consulting engineer. pt c/o 05/03 left sided chest pain. radiates to left upper shoulder/down entire spine. pt verbalizes pain increases w/ exertion/deep inspiration. denies any trauma. pt also verbalizing some sob. no wob noted. respirations even/unlabored. resting comfortably in no apparent distress. call mendosa placed within reach.
[2023-09-07 12:13] LABS: Influenza A PCR NEGATIVE (Negative); Influenza B PCR NEGATIVE (Negative); Resp Syncy Virus RNA Qual PCR NEGATIVE (Negative); SARS COV2 PCR INHOUSE NEGATIVE (Negative)
--- NOTE | 2023-09-07 12:14 | PC.NURSE ---
urine obtained/sent to lab.
[2023-09-07 12:25] LABS: Appearance Urine Turbid; Color Urine Yellow; Glucose Urine UA Negative (Negative); Leukocyte Esterase Urine Moderate (2+) (Negative); Nitrite Urine Negative (Negative); PH 7.5 (5.0-9.0); Specific Gravity - Urine 1.025 (1.005-1.025); UMIC TRIGGER UACC YES; Urine Blood Negative (Negative); Urine Ketones Negative (Negative); Urine Protein Negative (Neg-Trace)
[2023-09-07 12:34] LABS: Bacteria Urine None Seen (None Seen); Hyaline Casts Urine 0-2 /LPF (0-2); Other Crystals Urine Present; RBC Urine 0-2 /HPF (0-2); WBC Urine 0-5 /HPF (0-5)
[2023-09-07 13:53] VITALS: BP 143/84; PULSE 62; RESP 16; O2SAT 99
--- NOTE | 2023-09-07 13:55 | PC.NURSE ---
vss and up to date. nsr on the cardiac monitor technician. pt verbalizing no change in pain at this time. resting comfortably in no apparent distress. respirations even/unlabored. call mendosa placed within reach.
--- NOTE | 2023-09-07 14:09 | PC.NURSE ---
pt speaking w/ ED provider at this time.
== END 2023-09-07 14:53 | disposition home or self-care (01) ==
PROVIDERS: Physician Assistant Medical; Emergency Provider Emergency Medicine Emergency Medical Services; PCP Internal Medicine
DX: R07.89 Other chest pain (principal); G43.909 Migraine, unspecified, not intractable, without status migrainosus; M94.0 Chondrocostal junction syndrome [Tietze]; M54.50 Low back pain, unspecified; R06.02 Shortness of breath; F17.210 Nicotine dependence, cigarettes, uncomplicated; Z20.822 Contact with and (suspected) exposure to COVID-19; Z20.828 Contact with and (suspected) exposure to other viral communicable diseases; Z79.899 Other long term (current) drug therapy; Z71.6 Tobacco abuse counseling
CPT/HCPCS: 0241U; 71046; 80053; 81001; 83735; 83880; 84484; 85025; 85610; 85730; 93005; 99283; 99284

== ENCOUNTER → 2023-09-07 11:00 | Outpatient (BNV) | payer OTHER, SELFPAY | PROVIDERS: Emergency Provider Emergency Medicine Emergency Medical Services; PCP Internal Medicine; Visit Provider Internal Medicine Cardiovascular Disease | DX: R07.9 Chest pain, unspecified (principal) | CPT/HCPCS: 93010 ==

== ENCOUNTER 2023-09-26 13:07 | Outpatient (AMB) | payer OTHER, SELFPAY ==
--- NOTE | 2023-09-26 13:11 | MHC.OFFVIS ---
Intake Intake Visit Reasons: Pre Op L CTR 10/11/23 AR Intake Note: Hailey 63 yr old female presents today for her Pre Op visit for her Left CTR surgery that is scheduled for 10/11/[address] Wynne. Pt states she is unsure if she wants to go through with her procedure due to her new job. Pt states she is no longer in pain that it is just her hands that are numb all the time and that she believes that her right hand and arm are worse than her left at this point. Allergies No Known Allergies Allergy (Verified 09/26/23 13:11) HPI Pre Op L CTR 10/11/23 AR HPI Details Hailey is a 63 year old right hand dominant woman who presents to discuss treatment for her left carpal tunnel syndrome. She is scheduled for a left carpal tunnel release on 10/11/23. 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 She complains of numbness in the median nerve distribution bilaterally, L>R. Her symptoms are more constant and she feels her right side is now worse. She says she mostly feels pressure instead of sensation when something touches her hand. She says she has been feeling tingling in her small fingers as well. She also complains of medial epicondylitis, which is being managed by her PCP. She says her hand cramping & pain has resolved since her last appointment. She has a hx of Fibromyalgia [facility] Medical History Cocaine abuse Back pain History of depression History of pernicious anemia Hyperlipidemia Bulimia Anorexia IBS (irritable bowel syndrome) Fibromyalgia Surgical History History of excision of mass (04/19/23) H/O colonoscopy Hx of cataract extraction Hx of breast implants, bilateral Hx of cholecystectomy Hx of tonsillectomy Social History Are you a primary vocational childcare teacher to a significant other at home: No Do you presently have visiting nurse or other home services: No Patient Tobacco Use Status: Current someday Tobacco user Tobacco use type: Cigarette Cigarette Packs Per Day: 0 Cigarettes Per Day: 0 Years Smoked: 13 Second Hand Smoke Exposure: No 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al status: employed 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: [employer] Physical Exam Extrem Other: Evaluation of bilateral Upper Extremity: The patient is alert, oriented, and in no acute distress Neuro: Median, Ulnar, Radial nerves motor and sensory grossly intact. With regards to sensation, it should be noted that she says she has a tingling sensation to the tips of the fingers bilaterally, now including the small fingers. She says that this tingling sensation is constant. No thenar or intrinsic wasting. Good finger cross and good APB muscle belly firing bilaterally. Vascular: Cap refill brisk ROM: She can make a fist and extend all her digits No locking or catching. She does have some early generalized arthritic changes seen particularly in the DIP joints. 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 Garland 04/03/23 Assessment & Plan Assessment & Plan (1) Left carpal tunnel syndrome: Code(s): G56.02 - Carpal tunnel syndrome, left upper limb (2) Carpal tunnel syndrome of right wrist: Code(s): G56.01 - Carpal tunnel syndrome, right upper limb (3) Fibromyalgia: Code(s): M79.7 - Fibromyalgia Plan Assessment & Plan: 1. Left Carpal tunnel syndrome, mild-moderate Symptoms intermittent, but daily, worse at night 2. Right Carpal tunnel syndrome, mild-moderate Symptoms intermittent, but daily, worse at night I educated her about this condition I discussed operative and non-operative treatment options The patient would like to proceed with surgery, beginning with the left side The risks and benefits of operative treatment were discussed with the patient and the patient wishes to proceed with surgery. These risks include, but are not limited to risk of damage to blood vessels, nerves, tendons, infection, recurrence, incomplete relief of preoperative symptoms, persistent pain, possible need for further surgery and the risks associated with regional blocks and anesthesia. The plan is to take the patient to the operating room sometime in the next few weeks for the following procedures: 1. Left carpal tunnel release, under local All of the preoperative paperwork including the consent was filled out today. All the patient's questions were answered. The patient understands that they will be contacted by our planner/scheduler soon to schedule this procedure. She needs to delay her surgery from 10/11/22 due to starting a new job. She will work on rescheduling her appointment for when she has time off work. 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 I explained that after surgery she will likely need 2 weeks off of work, and then would have a 2lb weight limit for 4 weeks and will need to keep the wound clean and dry. She will follow up in 2 months for a pre-op appointment 3. Moderate axonal loss in the ulnar nerves bilaterally Per NCS from 04/03/23 No complaints of numbness or tingling in the ulnar nerve distribution We will observe and manage this conservatively at this time Scribed for Maria T Wynne MD by Jack Meléndez, medical claims representative, on 07/27/24 at 1:45 PM, EST. Coding Level of Care Code Est Pt Level 4 (96181) Diagnoses Left carpal tunnel syndrome G56.02 Carpal tunnel syndrome of right wrist G56.01 Fibromyalgia M79.7
== END 2023-09-26 13:52 | disposition home or self-care (01) ==
PROVIDERS: PCP Internal Medicine; Visit Provider Orthopaedic Surgery
DX: G56.03 Carpal tunnel syndrome, bilateral upper limbs (principal); M79.7 Fibromyalgia
CPT/HCPCS: 99024

== ENCOUNTER → 2023-09-26 13:07 | Outpatient (BNVA) | payer OTHER, SELFPAY | PROVIDERS: PCP Internal Medicine; Visit Provider Orthopaedic Surgery | DX: Z01.818 Encounter for other preprocedural examination (principal); G56.03 Carpal tunnel syndrome, bilateral upper limbs; M79.7 Fibromyalgia | CPT/HCPCS: 99212 ==

== ENCOUNTER 2023-10-16 11:00 | Outpatient (REF) | payer OTHER, SELFPAY ==
[2023-10-16 11:24] LABS: MANUAL DIFF FLAG NO
[2023-10-16 12:06] LABS: Basophils Percent Auto 0.5 % (0-2); Eosinophils Absolute Auto 0.2 X10*3/uL (0.0-0.4); Eosinophils Percent Auto 3.5 % (0-4); Hematocrit 42.7 % (37.0-47.0); Hemoglobin 14.2 g/dl (12.0-16.0); Imm Gran Abs Auto 0.02 X10*3/uL (0.00-0.03); Imm Gran Pct Auto 0.3 % (0.0-0.4); Lymphocytes Absolute Auto 1.2 X10*3/uL (1.2-4.9); Lymphocytes Percent Auto 19.5 % (20-40); Mean Corpuscular HGB Conc 33.3 g/dl (31.0-35.0); Mean Corpuscular Hemoglobin 29.5 pg (27.0-33.0); Mean Corpuscular Volume 88.8 fL (80.0-98.0); Mean Platelet Volume 9.7 fL (9.4-12.3); Monocytes Absolute Auto 0.5 X10*3/uL (0.1-1.2); Monocytes Percent Auto 7.1 % (2-11); Neutrophils Absolute Auto 4.4 x10*3/uL (2.0-8.3); Neutrophils Percent Auto 69.1 % (45-73); Platelet Count 242 X10*3/uL (160-400); Red Blood Count 4.81 X10*6/uL (4.20-5.50); White Blood Count 6.3 X10*3/uL (4.8-10.8)
[2023-10-16 12:36] LABS: Alanine Aminotransferase 17 U/L (0-31); Albumin Level 4.3 g/dL (3.5-5.0); Alkaline Phosphatase 119 U/L (39-117); Anion Gap 10 (12-20); Aspartate Amino Transferase 8 U/L (5-31); Bilirubin Total 0.4 mg/dL (0.0-1.0); Blood Urea Nitrogen 21 mg/dL (9-16); Carbon Dioxide 29 mmol/L (22-29); Chloride 106 mmol/L (96-108); Cholesterol 281 mg/dL (<200); Erythrocyte Sedimentation Rate 28 MM/HR (0-20); Estimated Glomerular Filt Rate > 60; Glucose Random 78 mg/dL (60-115); HDL Cholesterol 45 mg/dL (>40); LDL Cholesterol Calculated 207 mg/dL (<100); Sodium 141 mmol/L (135-145); Total Protein 7.2 g/dL (6.5-8.0); Triglycerides 146 mg/dL (<150)
[2023-10-16 13:04] LABS: Rheumatoid Factor < 13.0 IU/mL (<15.0)
[2023-10-18 13:57] LABS: Cyclic Citrullinated Peptide <16 UNITS
[2023-10-23 11:19] LABS: Anti Nuclear Antibody Screen NEGATIVE (NEGATIVE)
== END 2023-10-16 11:01 | disposition home or self-care (01) ==
LOC: HO.LAB 11:00
PROVIDERS: Visit Provider Internal Medicine
DX: D50.9 Iron deficiency anemia, unspecified (principal); E78.1 Pure hyperglyceridemia; M54.50 Low back pain, unspecified; R51.9 Headache, unspecified
CPT/HCPCS: 36415; 80053; 80061; 85025; 85652; 86038; 86200; 86431

== ENCOUNTER 2023-11-13 16:43 | Outpatient (REF) | payer OTHER, SELFPAY ==
[2023-11-13 17:06] LABS: MANUAL DIFF FLAG NO
[2023-11-13 17:47] LABS: Basophils Percent Auto 0.6 % (0-2); Eosinophils Absolute Auto 0.3 X10*3/uL (0.0-0.4); Eosinophils Percent Auto 3.7 % (0-4); Hematocrit 41.6 % (37.0-47.0); Hemoglobin 14.3 g/dl (12.0-16.0); Imm Gran Abs Auto 0.05 X10*3/uL (0.00-0.03); Imm Gran Pct Auto 0.7 % (0.0-0.4); Lymphocytes Percent Auto 29.1 % (20-40); Mean Corpuscular HGB Conc 34.4 g/dl (31.0-35.0); Mean Corpuscular Hemoglobin 30.3 pg (27.0-33.0); Mean Corpuscular Volume 88.1 fL (80.0-98.0); Mean Platelet Volume 10.2 fL (9.4-12.3); Monocytes Absolute Auto 0.4 X10*3/uL (0.1-1.2); Monocytes Percent Auto 6.4 % (2-11); Neutrophils Percent Auto 59.5 % (45-73); Platelet Count 208 X10*3/uL (160-400); Red Blood Count 4.72 X10*6/uL (4.20-5.50); Red Cell Distribution Width 12.9 % (11.0-16.0); White Blood Count 6.7 X10*3/uL (4.8-10.8)
[2023-11-13 18:16] LABS: C Reactive Protein < 0.04 mg/dL (< or = 0.50)
[2023-11-13 18:25] LABS: Erythrocyte Sedimentation Rate 6 MM/HR (0-20)
== END 2023-11-13 16:44 | disposition home or self-care (01) ==
LOC: HO.LAB 16:43
PROVIDERS: PCP Internal Medicine; Visit Provider Registered Nurse
DX: G43.909 Migraine, unspecified, not intractable, without status migrainosus (principal)
CPT/HCPCS: 36415; 82550; 85025; 85652; 86140

== ENCOUNTER 2024-03-19 10:00 | Outpatient (RCR) | payer OTHER, SELFPAY ==
--- NOTE | 2024-02-06 13:20 | MHC.PT.EP ---
[facility] [place] Office [place] Office [place] Office [address] [place] Reyes [address] [phone] F: [phone] F: [phone] F: [phone] F: [phone] Physical Therapy Plan of Care Date of Evaluation: 02/05/24 Date of Surgery: Diagnosis: LUMBAR SPASMS (KP) Assessment: MUSA IS A PLEASANT 63 YO FEMALE WHO PRESENTS WITH BACK SPASMS. 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 PAIN HAS PROGRESSED AND IS NOW FAIRLY CONSTANT. SHE REPORTS WHEN SHE WAKES IN MORNING, NEEDS ABOUT AN EXTRA 1/2 HOUR JUST TO GET OUT OF BED AND STATES THAT WHEN SHE GETS UP SHE FEELS CRIPPLED . THORACIC PAIN IS RATED SQUEEZING , SPASMS , PAIN , LOW BACK PAIN IS DESCRIBED SHARP. INCREASING PAIN WITH WALKING, PROLONGED POSITIONING. WORKS [address] [place] [employer] [place] NO HEAVY LIFTING, MOSTLY SITTING. UPON EXAM IMPAIRMENTS INCLUDE DECREASED SPINAL ROM, DECREASED LE STRENGTH, ALTERED POSTURE AND POSITIONING, ALTERED SOFT TISSUE MOBILIY, INCREASED PAIN. FUNCTIONAL LIMITATIONS INCLUDE DECREASED TOLERANCE TO MAINTAIN PROLONGED POSITIONS, DECREASED ABILITY TO LIFT, REACH AND CARRY. SHE REPORTS DECREASED PARTICIPATION IN COMMUNITY AND RECREATIONAL ACTIVITIES AND DISRUPTED SLEEP. Frequency and Duration: The patient will be seen 2 X WEEK FOR 6 WEEKS Short Term Goals: INITIATE HEP AND PROMOTE SELF MANAGEMENT OF SYMPTOMS Senior Living Goals: FULL PAIN FREE ROM OF T/L SPINE FULL LE STRENGTH EQUAL MARIA D IN ORDER TO PERFORM FULL FUNCTIONAL SQUAT AND LIFT 10# TO WAIST HEIGHT TO REPORT PAIN FREE ADLs AND HOMEMAKING TASKS AT LEAST 8 HOURS DAILY INDEPENDENT HEP AND SELF MANAGEMENT OF RESIDUAL SYMPTOMS Treatment Plan: Modalities to reduce pain, spasms and effusion. Manual therapy to restore motion and function. Therapeutic exercise to improve strength and flexibility. Neuromuscular re-education for posture and balance. Therapeutic activities to return to functional activities of daily living. Electronically signed by: BLAIR HAYWARD PT DPT Please sign and return to therapist. Thank you for your referral.
== END 2024-03-21 08:35 | disposition home or self-care (01) ==
LOC: HO.PT 10:00
PROVIDERS: PCP Internal Medicine; Visit Provider Psychiatry & Neurology Neurology
DX: M51.34 Other intervertebral disc degeneration, thoracic region (principal)
CPT/HCPCS: 97110; 97140; 97162; 97530; 97535

== ENCOUNTER 2024-04-08 11:04 | Outpatient (REF) | payer OTHER, SELFPAY ==
[2024-04-08 11:22] LABS: MANUAL DIFF FLAG NO
[2024-04-08 11:51] LABS: Basophils Percent Auto 0.6 % (0-2); Eosinophils Absolute Auto 0.2 X10*3/uL (0.0-0.4); Eosinophils Percent Auto 2.6 % (0-4); Hematocrit 42.5 % (37.0-47.0); Hemoglobin 14.7 g/dl (12.0-16.0); Imm Gran Abs Auto 0.02 X10*3/uL (0.00-0.03); Imm Gran Pct Auto 0.3 % (0.0-0.4); Lymphocytes Absolute Auto 1.7 X10*3/uL (1.2-4.9); Lymphocytes Percent Auto 25.5 % (20-40); Mean Corpuscular HGB Conc 34.6 g/dl (31.0-35.0); Mean Corpuscular Hemoglobin 30.6 pg (27.0-33.0); Mean Corpuscular Volume 88.4 fL (80.0-98.0); Mean Platelet Volume 10.2 fL (9.4-12.3); Monocytes Absolute Auto 0.3 X10*3/uL (0.1-1.2); Monocytes Percent Auto 5.2 % (2-11); Neutrophils Absolute Auto 4.3 x10*3/uL (2.0-8.3); Neutrophils Percent Auto 65.8 % (45-73); Platelet Count 205 X10*3/uL (160-400); Red Blood Count 4.81 X10*6/uL (4.20-5.50); Red Cell Distribution Width 12.3 % (11.0-16.0); White Blood Count 6.5 X10*3/uL (4.8-10.8)
[2024-04-08 12:25] LABS: Alanine Aminotransferase 46 U/L (0-31); Albumin Level 4.7 g/dL (3.5-5.0); Alkaline Phosphatase 84 U/L (39-117); Anion Gap 14 (12-20); Aspartate Amino Transferase 18 U/L (5-31); Bilirubin Total 0.4 mg/dL (0.0-1.0); Blood Urea Nitrogen 17 mg/dL (9-16); Calcium 10.2 mg/dL (8.4-10.2); Carbon Dioxide 24 mmol/L (22-29); Chloride 111 mmol/L (96-108); Cholesterol 179 mg/dL (<200); Estimated Glomerular Filt Rate > 60; Glucose Random 99 mg/dL (60-115); HDL Cholesterol 57 mg/dL (>40); LDL Cholesterol Calculated 103 mg/dL (<100); Potassium 4.3 mmol/L (3.3-5.1); Sodium 145 mmol/L (135-145); Total Protein 7.1 g/dL (6.5-8.0); Triglycerides 97 mg/dL (<150)
[2024-04-08 12:29] LABS: Erythrocyte Sedimentation Rate 6 MM/HR (0-20)
[2024-04-17 06:19] LABS: Anti Nuclear Antibody Screen NEGATIVE (NEGATIVE)
== END 2024-04-08 11:05 | disposition home or self-care (01) ==
LOC: HO.LAB 11:04
PROVIDERS: PCP Internal Medicine; Visit Provider Internal Medicine
DX: D50.9 Iron deficiency anemia, unspecified (principal); E78.01 Familial hypercholesterolemia; M54.50 Low back pain, unspecified; R51.9 Headache, unspecified
CPT/HCPCS: 36415; 80053; 80061; 85025; 85652; 86038

== ENCOUNTER 2024-04-16 13:45 | Outpatient (REF) | payer OTHER, SELFPAY ==
--- NOTE | ~2024-04-16 | XR_ITS ---
EXAMINATION: XR LUMBAR SPINE, SACROILIAC JOINTS, SACRUM/COCCYX CLINICAL INDICATION: Lumbar radiculopathy, patient states chronic pain in lower back and tailbone area. COMPARISON: Right hip 09/22/2021. TECHNIQUE: 3 views of the sacrum/coccyx, 3 views bilateral sacroiliac joints, 3 views lumbar spine. FINDINGS: LUMBAR SPINE: Facet arthritis in the iev-az-[id number] lumbar spine. Surgical clips right upper quadrant. Mild levoscoliosis of the lumbar spine. Moderate multilevel lumbar spondylosis with loss of disc space height at L5-S1. BILATERAL SACROILIAC JOINTS: Small pelvic calcifications are likely vascular. Pubic symphysis is preserved. Moderate degenerative changes in the bilateral sacroiliac joints. SACRUM/COCCYX: Visualization limited due to overlying bowel. Sclerosis and degenerative change between the segments of the sacrum and coccyx. XR/XR sacroiliac joint min 3V IMPRESSION: 1. Moderate multilevel lumbar spondylosis with loss of disc space height at L5-S1. 2. Moderate degenerative changes in the bilateral sacroiliac joints. 3. Sclerosis and degenerative change between the segments of the sacrum and coccyx. 4. Additional imaging with CT scan or MRI recommended if there is clinical concern for fracture or other underlying pathology. This study was presented today April 30, 2024 for interpretation. Stat results provided at this time as requested by referring provider.
--- NOTE | ~2024-04-16 | XR_ITS ---
EXAMINATION: XR LUMBAR SPINE, SACROILIAC JOINTS, SACRUM/COCCYX CLINICAL INDICATION: Lumbar radiculopathy, patient states chronic pain in lower back and tailbone area. COMPARISON: Right hip 09/22/2021. TECHNIQUE: 3 views of the sacrum/coccyx, 3 views bilateral sacroiliac joints, 3 views lumbar spine. FINDINGS: LUMBAR SPINE: Facet arthritis in the ivq-qv-xwhwo lumbar spine. Surgical clips right upper quadrant. Mild levoscoliosis of the lumbar spine. Moderate multilevel lumbar spondylosis with loss of disc space height at L5-S1. BILATERAL SACROILIAC JOINTS: Small pelvic calcifications are likely vascular. Pubic symphysis is preserved. Moderate degenerative changes in the bilateral sacroiliac joints. SACRUM/COCCYX: Visualization limited due to overlying bowel. Sclerosis and degenerative change between the segments of the sacrum and coccyx. XR/XR lumbar spine 2-3V IMPRESSION: 1. Moderate multilevel lumbar spondylosis with loss of disc space height at L5-S1. 2. Moderate degenerative changes in the bilateral sacroiliac joints. 3. Sclerosis and degenerative change between the segments of the sacrum and coccyx. 4. Additional imaging with CT scan or MRI recommended if there is clinical concern for fracture or other underlying pathology. This study was presented today April 30, 2024 for interpretation. Stat results provided at this time as requested by referring provider.
--- NOTE | ~2024-04-16 | XR_ITS ---
EXAMINATION: XR LUMBAR SPINE, SACROILIAC JOINTS, SACRUM/COCCYX CLINICAL INDICATION: Lumbar radiculopathy, patient states chronic pain in lower back and tailbone area. COMPARISON: Right hip 09/22/2021. TECHNIQUE: 3 views of the sacrum/coccyx, 3 views bilateral sacroiliac joints, 3 views lumbar spine. FINDINGS: LUMBAR SPINE: Facet arthritis in the hqr-xq-xuznd lumbar spine. Surgical clips right upper quadrant. Mild levoscoliosis of the lumbar spine. Moderate multilevel lumbar spondylosis with loss of disc space height at L5-S1. BILATERAL SACROILIAC JOINTS: Small pelvic calcifications are likely vascular. Pubic symphysis is preserved. Moderate degenerative changes in the bilateral sacroiliac joints. SACRUM/COCCYX: Visualization limited due to overlying bowel. Sclerosis and degenerative change between the segments of the sacrum and coccyx. XR/XR sacrum coccyx min 2V IMPRESSION: 1. Moderate multilevel lumbar spondylosis with loss of disc space height at L5-S1. 2. Moderate degenerative changes in the bilateral sacroiliac joints. 3. Sclerosis and degenerative change between the segments of the sacrum and coccyx. 4. Additional imaging with CT scan or MRI recommended if there is clinical concern for fracture or other underlying pathology. This study was presented today April 30, 2024 for interpretation. Stat results provided at this time as requested by referring provider.
== END 2024-04-16 13:46 | disposition home or self-care (01) ==
LOC: HO.XRAY 13:45
PROVIDERS: PCP Internal Medicine; Visit Provider Registered Nurse
DX: M54.16 Radiculopathy, lumbar region (principal)
CPT/HCPCS: 72100; 72202; 72220

== ENCOUNTER 2024-05-13 18:00 | Outpatient (REF) | payer OTHER, SELFPAY ==
--- NOTE | ~2024-05-13 | MR_ITS ---
MRI OF THE THORACIC SPINE WITHOUT CONTRAST MRI OF THE LUMBAR SPINE WITHOUT CONTRAST CLINICAL INFORMATION: Lumbar degenerative disc disease. Thoracic disc disease. COMPARISON: None available.. TECHNIQUE: Multiplanar multisequence MR imaging of the thoracic and lumbar spine obtained without contrast. FINDINGS: THORACIC SPINE: There are 12 rib bearing thoracic type vertebral bodies. There is a midthoracic kyphosis. The vertebral body heights are maintained. There are multilevel endplate osteophytes. There are Modic 1 endplate signal changes at T5-T6 and T9-T10. There is no additional bone marrow edema. There are no acute fractures. Thoracic cord morphology is normal. There is no thoracic cord signal abnormality when accounting for artifact. There is no thoracic cord compression there are multilevel endplate osteophytes. No focal thoracic disc herniations. No severe central canal stenosis and no severe foraminal stenosis within the thoracic spine. Partially imaged degenerative changes within the cervical spine. LUMBAR SPINE: There is slight grade 1 degenerative anterolisthesis of L5 on S1 and L4 on L5. Lumbar alignment is otherwise maintained. There is mild chronic vertebral body height loss at all lumbar levels. There are Modic type I endplate signal changes at L5-S1. There are there are no acute fractures. The conus terminates at the L1-L2 level. The imaged lower thoracic spinal cord is unremarkable. Small right renal cyst for which no further imaging follow-up is warranted. L1-L2: Posterior disc contour is normal. There is no central canal stenosis and there is no foraminal stenosis. L2-L3: The disc contour is normal. There is no central canal stenosis and there is no foraminal stenosis L3-L4: There is a small diffuse annular disc bulge and mild bilateral facet arthropathy. No central canal stenosis and no foraminal stenosis. L4-L5: Slight grade 1 anterolisthesis. There is a diffuse annular disc bulge exhibiting a left lateral annular fissure and there is severe left and mild right facet arthropathy and ligamentum flavum thickening. No central canal stenosis. A right foraminal disc protrusion contacts the exiting right L4 nerve root. No central canal and no significant left foraminal stenosis. L5-S1: Slight grade 1 anterolisthesis. Diffuse annular disc bulge. Bilateral facet arthropathy. There is no central canal stenosis. There is mild foraminal encroachment bilaterally. MR/MR thoracic spine wo con IMPRESSION: * Thoracic kyphosis and mild to moderate thoracic spondylosis. There is no severe central canal stenosis and there is no severe foraminal stenosis within the thoracic spine. Partially imaged degenerative changes within the cervical spine. * At L4-L5, there is slight grade 1 degenerative anterolisthesis in the setting of advanced bilateral facet arthropathy. A right foraminal disc protrusion at this level contacts the exiting right L4 nerve root. There is a left lateral annular fissure at this level. * At L5-S1, there is slight grade 1 degenerative anterolisthesis in the setting of advanced bilateral facet arthropathy. There are Modic type I endplate signal changes at this level. * Additional mild spondylitic changes as discussed above. No severe central canal stenosis and no severe foraminal stenosis within the lumbar spine. Electronically signed by: Lei Waldrop MD 06/04/2024 12:59 PM EDT
== END 2024-05-13 18:01 | disposition home or self-care (01) ==
LOC: HO.MRI 18:00
PROVIDERS: PCP Internal Medicine; Visit Provider Registered Nurse
DX: M51.9 Unspecified thoracic, thoracolumbar and lumbosacral intervertebral disc disorder (principal)
CPT/HCPCS: 72146

== ENCOUNTER 2024-05-19 06:18 | Day surgery (SDC) | payer OTHER, SELFPAY ==
[2024-05-15 08:10] VITALS: BMI 26.6
[2024-05-19 06:37] VITALS: BP 118/85; PULSE 81; RESP 16; TEMP 36.8; O2SAT 96
[2024-05-19 06:41] VITALS: BMI 24.5
[2024-05-19] MEDS: Tetracaine HCl/PF 0.5% Oph Sol 4 ML DROPS 1 DROP EYE-LEFT (07:05)
[2024-05-19] MEDS: Cyclopentolate 1 % Ophth Sol 2 ML DRPBTL 1 DROP EYE-LEFT ×3 (07:06→07:22)
[2024-05-19] MEDS: Tropicamide 1 % Ophth Sol 3 ML BTL 1 DROP EYE-LEFT ×3 (07:08→07:24)
[2024-05-19] MEDS: Ketorolac Tromethamine 0.5% Op 10 ML DROPS 1 DROP EYE-LEFT ×3 (07:10→07:26)
[2024-05-19] MEDS: Phenylephrine HCL 2.5% Oph SoL 2 ML BOTTLE 1 DROP EYE-LEFT ×3 (07:12→07:28)
--- NOTE | 2024-05-19 07:24 | MHC.SHP ---
Pre-Procedural Eval Section A - 24 Hr Update-Section A only Date of Service: 05/19/24 The patient is an INPATIENT: No Changes since office visit: No Cold of Flu in the past 2 weeks, No New Medical Problems, No Changes in Medication and No Patient answered all questions The patient has been examined within 24 hours of the surgical procedure. The History & Physical has been completed within 30 days and I have reviewed it.: Yes Section B - Complete if H&P > 30 days Chief Complaint: Age-related nuclear cataract, left eye Allergies: Allergies Allergy/AdvReac Type Severity Reaction Status Date / Time gabapentin Allergy Mild Nausea Verified 05/19/24 06:35 atorvastatin AdvReac Mild myalgia Verified 05/19/24 06:35 duloxetine AdvReac Mild headache/lack Verified 05/19/24 06:35 of emotion Plan Diagnosis/Plan: Unchanged I have reviewed the history and physical and performed a pertinent physical examination on my patient. No changes have occurred unless specified. Time Spent With Patient Time: Total time managing care of this patient today ____ minutes.
--- NOTE | 2024-05-19 08:17 | HO.PNOPHT ---
Ophthalmology Procedure Procedure Date of Service: 05/19/24 Ophthalmology Viscoelastic: Healon Duet Dual Pack Pro Ophthalmology Lenses: IOL Acrysof MP - [id number] (20.5) Procedure Notes: PREOPERATIVE DIAGNOSIS: Decreased visual acuity left eye secondary to cataract POSTOPERATIVE DIAGNOSIS: Same PROCEDURE: Left cataract extraction with intraocular lens insertion SURGEON: Seferino Sheldon M.D. ANESTHESIA: Topical/MAC ESTIMATED BLOOD LOSS: None COMPLICATIONS: None After obtaining informed consent, the patient was brought to the operation room suite and placed in the supine position. After adequate sedation per anesthesia, topical drops of Tetracaine were given to the left eye. The eye was then prepped and draped in the usual sterile fashion. The operating room microscope was then positioned over the operative eye and a lid speculum placed. A paracentesis was created. Viscoelastic was then instilled into the anterior chamber. A three plane incision was then created temporally, utilizing a 2.85 mm keratome. Capsulotomy forceps were then utilized to create a circular tear capsulotomy. Hydrodissection and hydrodelineation were carried out until adequate mobilization of the nucleus occurred. Phacoemulsification was then utilized to remove the dense central nucleus followed by removal of the cortical material utilizing the automated aspiration irrigation unit. Viscoat elastic was instilled into the posterior capsular bag followed by placement of a posterior chamber intraocular lens without difficulty. The residual Viscoat elastic was then removed utilizing the automated IA machine. The wound was check and found to be watertight. The patient tolerated the procedure well and the lid speculum was removed. Intracameral injection of Vigamox 0.1 mL followed by a subtenon injection of Kenalog-40 0.2 mL were administered. The patient will be seen in the a.m.
[2024-05-19] MEDS: Lactated Ringers 500 ML 80 ML IVCONT (08:20)
--- NOTE | 2024-05-19 08:26 | HO.ANESPROP2 ---
[facility] Active Problems Active Problems: All Active Problems Carpal tunnel syndrome of right wrist (Acute) Left carpal tunnel syndrome (Acute) Lipoma of left shoulder (Acute) Intramuscular lipoma (Acute) Tear of left deltoid muscle (Acute) Patella-femoral syndrome (Acute) IBS (irritable bowel syndrome) (Acute) Fibromyalgia (Acute) History of pernicious anemia (Acute) Past Medical History Medical History DJD (degenerative joint disease) Anorexia nervosa with bulimia PTSD (post-traumatic stress disorder) Depression Arthritis Migraine Cocaine abuse Back pain History of depression History of pernicious anemia Hyperlipidemia Bulimia Anorexia IBS (irritable bowel syndrome) Fibromyalgia Family History Family history of problems with anesthesia: No Surgical History Surgical History History of excision of mass (04/19/23) H/O colonoscopy Hx of cataract extraction Hx of breast implants, bilateral Hx of cholecystectomy Hx of tonsillectomy History of Problems with Anesthesia: No Social History Social History Are you a primary aged or disabled care worker to a significant other at home: No Do you presently have visiting nurse or other home services: No Patient Tobacco Use Status: Former Tobacco user Tobacco use type: Cigarette Cigarette Packs Per Day: 0 Cigarettes Per Day: 0 Years Smoked: 13 Second Hand Smoke Exposure: No Have you been hit, kicked, punched, or otherwise hurt by someone within the past year? If so, by whom?: No Advance Directives Information Provided: Yes (as above noted) Advance Directives on File: No Recently lost weight without trying: No Eating poorly because of decreased appetite: No Nutrition Risks: No Nutritional Risk 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al status: employed 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: [employer] Meds Allergies Allergy/AdvReac Type Severity Reaction Status Date / Time gabapentin Allergy Mild Nausea Verified 05/19/24 06:35 atorvastatin AdvReac Mild myalgia Verified 05/19/24 06:35 duloxetine AdvReac Mild headache/lack Verified 05/19/24 06:35 of emotion Active Medications: Current Medications Povidone Iodine (Povidone Iodine 5 % Ophth Soln 30 Ml Bottle) 1 appl EYE-LEFT PREOP PRN PRN Reason: Pre-Op Surgical Implant Prophy Povidone Iodine (Povidone Iodine 5 % Ophth Soln 30 Ml Bottle) 1 appl EYE-LEFT PREOP PRN PRN Reason: Pre-Op Surgical Implant Prophy Home Medications ?Medication ?Instructions ?Recorded ?Confirmed ?Last Taken ?Type multivitamin 1 tab PO DAILY 11/05/20 05/19/24 Unknown History naproxen sodium 220 mg capsule 220 mg PO BID PRN Pain 11/05/20 05/19/24 04/18/23 History (Aleve) ezetimibe 10 mg tablet 10 mg PO DAILY 09/26/23 05/19/24 Unknown History rosuvastatin 40 mg tablet 40 mg PO BEDTIME 05/14/24 05/19/24 Unknown History tramadol 50 mg tablet 50 mg PO DAILY PRN Sleep 05/19/24 05/19/24 Unknown History Exam Height,Weight and Vital Signs: Height 5 ft 6 in Weight 68.765 kg Last Vital Signs Temp 98.2 F 05/19/24 06:37 Pulse 81 05/19/24 06:37 Resp 16 05/19/24 06:37 BP 118/85 05/19/24 06:37 Pulse Ox 96 05/19/24 06:37 O2 Del Method Room Air 05/19/24 06:37 Airway Mallampati Class: II (edentulous) TM Dist: >3cm Neck ROM: Full Denture: Upper and Lower Loose/Missing/Broken Teeth: Yes, Upper and Lower Heart: RRR Lungs: CTA Assessment and Plan Assessment Anesthesia Assessment: Anesthesia Plan Discussed and Chart Reviewed Final Anesthetic Review Family History of Problems with Anesthesia: No History of Problems with Anesthesia: No NPO: Yes ASA Class: II Final Preanesthetic Review: Meds/Allgs Chart Reviewed, Consent Obtained/Reviewed and Anes Risks/Benef Reviewed Patient Risk: Low Procedure Risk: Low Anesthetic Plan Anesthetic Plan: MAC: Disposition: Standard PACU
[2024-05-19 08:57] VITALS: BP 117/72; PULSE 70; RESP 18; TEMP 36.6; O2SAT 97
== END 2024-05-19 09:16 | disposition home or self-care (01) ==
PROVIDERS: PCP Internal Medicine; Visit Provider Ophthalmology
PROC: (CPT 66985; principal; 2024-05-19 08:30)
DX: H25.12 Age-related nuclear cataract, left eye (principal); H54.7 Unspecified visual loss; H40.013 Open angle with borderline findings, low risk, bilateral; H35.09 Other intraretinal microvascular abnormalities; H43.399 Other vitreous opacities, unspecified eye; H18.413 Arcus senilis, bilateral; Z96.1 Presence of intraocular lens; E78.00 Pure hypercholesterolemia, unspecified; M79.7 Fibromyalgia; G43.909 Migraine, unspecified, not intractable, without status migrainosus; Z79.1 Long term (current) use of non-steroidal anti-inflammatories (NSAID); Z79.899 Other long term (current) drug therapy; Z88.8 Allergy status to other drugs, medicaments and biological substances; Z98.890 Other specified postprocedural states; Z87.891 Personal history of nicotine dependence
CPT/HCPCS: 66984; J2250; J3010; J3301; V2630

== ENCOUNTER 2024-05-22 11:23 | Outpatient (REF) | payer OTHER, SELFPAY ==
--- NOTE | ~2024-05-22 | MM_ITS ---
EXAMINATION: MM SCREENING DIGITAL BREAST TOMOSYNTHESIS, BILATERAL CLINICAL INFORMATION: Screening. Asymptomatic. COMPARISON: Mammography: Comparison is made with available prior examinations. TECHNIQUE: Digital mammography is performed in craniocaudal and mediolateral oblique views along with computer-aided detection (CAD). Digital breast tomosynthesis is performed in implant-displaced craniocaudal and implant-displaced mediolateral oblique views along with computer-aided detection (CAD). FINDINGS: There are scattered areas of fibroglandular density (ACR BI-RADS breast composition Category b). Bilateral prepectoral implants, the left implant is normal-appearing. The right implant is unchanged from prior and appears ruptured and calcified. There are no significant masses, abnormal calcifications, or other abnormalities. MM/MM tomosynthesis screen imp BI IMPRESSION: There are no significant changes from prior study. ASSESSMENT: BI-RADS BI-RADS 2 - Benign Findings RECOMMENDATION: Routine annual mammography screening. 1 year F/U This patient's information was entered into a reminder system with a target due date for their next mammogram. Electronically signed by: Christiana Mcdonough DO 06/13/2024 09:22 PM EDT
== END 2024-05-22 11:24 | disposition home or self-care (01) ==
LOC: HO.MAMMO 11:23
PROVIDERS: PCP Internal Medicine; Visit Provider Internal Medicine
DX: Z12.31 Encounter for screening mammogram for malignant neoplasm of breast (principal)
CPT/HCPCS: 77063; 77067

== ENCOUNTER → 2024-05-22 11:30 | Outpatient (BNV) | payer OTHER, SELFPAY | PROVIDERS: PCP Internal Medicine; Visit Provider Internal Medicine | DX: Z12.31 Encounter for screening mammogram for malignant neoplasm of breast (principal) | CPT/HCPCS: 77063; 77067 ==

== ENCOUNTER 2024-06-01 20:01 | Outpatient (REF) | payer OTHER, SELFPAY ==
--- NOTE | ~2024-06-01 | MR_ITS ---
MRI OF THE THORACIC SPINE WITHOUT CONTRAST MRI OF THE LUMBAR SPINE WITHOUT CONTRAST CLINICAL INFORMATION: Lumbar degenerative disc disease. Thoracic disc disease. COMPARISON: None available.. TECHNIQUE: Multiplanar multisequence MR imaging of the thoracic and lumbar spine obtained without contrast. FINDINGS: THORACIC SPINE: There are 12 rib bearing thoracic type vertebral bodies. There is a midthoracic kyphosis. The vertebral body heights are maintained. There are multilevel endplate osteophytes. There are Modic 1 endplate signal changes at T5-T6 and T9-T10. There is no additional bone marrow edema. There are no acute fractures. Thoracic cord morphology is normal. There is no thoracic cord signal abnormality when accounting for artifact. There is no thoracic cord compression there are multilevel endplate osteophytes. No focal thoracic disc herniations. No severe central canal stenosis and no severe foraminal stenosis within the thoracic spine. Partially imaged degenerative changes within the cervical spine. LUMBAR SPINE: There is slight grade 1 degenerative anterolisthesis of L5 on S1 and L4 on L5. Lumbar alignment is otherwise maintained. There is mild chronic vertebral body height loss at all lumbar levels. There are Modic type I endplate signal changes at L5-S1. There are there are no acute fractures. The conus terminates at the L1-L2 level. The imaged lower thoracic spinal cord is unremarkable. Small right renal cyst for which no further imaging follow-up is warranted. L1-L2: Posterior disc contour is normal. There is no central canal stenosis and there is no foraminal stenosis. L2-L3: The disc contour is normal. There is no central canal stenosis and there is no foraminal stenosis L3-L4: There is a small diffuse annular disc bulge and mild bilateral facet arthropathy. No central canal stenosis and no foraminal stenosis. L4-L5: Slight grade 1 anterolisthesis. There is a diffuse annular disc bulge exhibiting a left lateral annular fissure and there is severe left and mild right facet arthropathy and ligamentum flavum thickening. No central canal stenosis. A right foraminal disc protrusion contacts the exiting right L4 nerve root. No central canal and no significant left foraminal stenosis. L5-S1: Slight grade 1 anterolisthesis. Diffuse annular disc bulge. Bilateral facet arthropathy. There is no central canal stenosis. There is mild foraminal encroachment bilaterally. MR/MR lumbar spine wo con IMPRESSION: * Thoracic kyphosis and mild to moderate thoracic spondylosis. There is no severe central canal stenosis and there is no severe foraminal stenosis within the thoracic spine. Partially imaged degenerative changes within the cervical spine. * At L4-L5, there is slight grade 1 degenerative anterolisthesis in the setting of advanced bilateral facet arthropathy. A right foraminal disc protrusion at this level contacts the exiting right L4 nerve root. There is a left lateral annular fissure at this level. * At L5-S1, there is slight grade 1 degenerative anterolisthesis in the setting of advanced bilateral facet arthropathy. There are Modic type I endplate signal changes at this level. * Additional mild spondylitic changes as discussed above. No severe central canal stenosis and no severe foraminal stenosis within the lumbar spine. Electronically signed by: Lie Waldrop MD 06/04/2024 12:59 PM EDT
== END 2024-06-01 20:02 | disposition home or self-care (01) ==
LOC: HO.MRI 20:01
PROVIDERS: PCP Internal Medicine; Visit Provider Registered Nurse
DX: M51.36 Other intervertebral disc degeneration, lumbar region (principal)
CPT/HCPCS: 72148

== ENCOUNTER 2024-07-03 15:34 | Outpatient (REF) | payer OTHER, SELFPAY ==
[2024-07-03 15:53] LABS: MANUAL DIFF FLAG NO
[2024-07-03 16:46] LABS: Basophils Percent Auto 0.8 % (0-2); Eosinophils Absolute Auto 0.1 X10*3/uL (0.0-0.4); Eosinophils Percent Auto 2.1 % (0-4); Hematocrit 41.9 % (37.0-47.0); Imm Gran Abs Auto 0.01 X10*3/uL (0.00-0.03); Imm Gran Pct Auto 0.2 % (0.0-0.4); Lymphocytes Absolute Auto 1.6 X10*3/uL (1.2-4.9); Lymphocytes Percent Auto 30.7 % (20-40); Mean Corpuscular HGB Conc 33.4 g/dl (31.0-35.0); Mean Corpuscular Hemoglobin 30.3 pg (27.0-33.0); Mean Corpuscular Volume 90.7 fL (80.0-98.0); Monocytes Absolute Auto 0.3 X10*3/uL (0.1-1.2); Monocytes Percent Auto 6.4 % (2-11); Neutrophils Absolute Auto 3.1 x10*3/uL (2.0-8.3); Neutrophils Percent Auto 59.8 % (45-73); Platelet Count 202 X10*3/uL (160-400); Red Blood Count 4.62 X10*6/uL (4.20-5.50); White Blood Count 5.2 X10*3/uL (4.8-10.8)
[2024-07-03 17:19] LABS: Alanine Aminotransferase 37 U/L (0-31); Albumin Level 4.6 g/dL (3.5-5.0); Alkaline Phosphatase 77 U/L (39-117); Anion Gap 12 (12-20); Aspartate Amino Transferase 14 U/L (5-31); Bilirubin Total 0.4 mg/dL (0.0-1.0); Blood Urea Nitrogen 16 mg/dL (9-16); Calcium 9.8 mg/dL (8.4-10.2); Carbon Dioxide 29 mmol/L (22-29); Chloride 106 mmol/L (96-108); Estimated Glomerular Filt Rate 51; Glucose Random 86 mg/dL (60-115); Potassium 3.7 mmol/L (3.3-5.1); Sodium 143 mmol/L (135-145); Total Protein 6.9 g/dL (6.5-8.0)
[2024-07-03 17:34] LABS: Thyroid Stimulating Hormone 1.15 uIU/mL (0.32-4.0)
[2024-07-03 17:37] LABS: Vitamin B12 499 pg/mL (200-900)
== END 2024-07-03 15:35 | disposition home or self-care (01) ==
LOC: HO.LAB 15:34
PROVIDERS: PCP Internal Medicine; Visit Provider Internal Medicine
DX: D51.0 Vitamin B12 deficiency anemia due to intrinsic factor deficiency (principal); L30.8 Other specified dermatitis; R53.83 Other fatigue
CPT/HCPCS: 36415; 80053; 82607; 84443; 85025

== ENCOUNTER 2024-09-08 10:57 | Outpatient (REF) | payer OTHER, SELFPAY ==
[2024-09-08 11:13] LABS: MANUAL DIFF FLAG NO
[2024-09-08 12:56] LABS: Basophils Percent Auto 0.7 % (0-2); Eosinophils Absolute Auto 0.1 X10*3/uL (0.0-0.4); Hematocrit 45.3 % (37.0-47.0); Hemoglobin 15.4 g/dl (12.0-16.0); Imm Gran Abs Auto 0.02 X10*3/uL (0.00-0.03); Imm Gran Pct Auto 0.3 % (0.0-0.4); Lymphocytes Absolute Auto 1.6 X10*3/uL (1.2-4.9); Lymphocytes Percent Auto 26.4 % (20-40); Mean Corpuscular Hemoglobin 30.3 pg (27.0-33.0); Mean Corpuscular Volume 89.2 fL (80.0-98.0); Mean Platelet Volume 10.3 fL (9.4-12.3); Monocytes Absolute Auto 0.4 X10*3/uL (0.1-1.2); Monocytes Percent Auto 5.8 % (2-11); Neutrophils Absolute Auto 3.9 x10*3/uL (2.0-8.3); Neutrophils Percent Auto 64.8 % (45-73); Platelet Count 228 X10*3/uL (160-400); Red Blood Count 5.08 X10*6/uL (4.20-5.50); Red Cell Distribution Width 12.1 % (11.0-16.0)
[2024-09-08 13:34] LABS: Alanine Aminotransferase 48 U/L (0-31); Albumin Level 4.8 g/dL (3.5-5.0); Alkaline Phosphatase 88 U/L (39-117); Anion Gap 10 (12-20); Aspartate Amino Transferase 24 U/L (5-31); Bilirubin Total 0.5 mg/dL (0.0-1.0); Blood Urea Nitrogen 19 mg/dL (9-16); Calcium 10.3 mg/dL (8.4-10.2); Carbon Dioxide 31 mmol/L (22-29); Chloride 107 mmol/L (96-108); Cholesterol 223 mg/dL (<200); Estimated Glomerular Filt Rate 55; Glucose Random 94 mg/dL (60-115); HDL Cholesterol 48 mg/dL (>40); LDL Cholesterol Calculated 147 mg/dL (<100); Potassium 4.2 mmol/L (3.3-5.1); Sodium 144 mmol/L (135-145); Total Protein 7.5 g/dL (6.5-8.0); Triglycerides 143 mg/dL (<150)
[2024-09-08 13:37] LABS: Ferritin 85 ng/mL (10-250); Vitamin B12 767 pg/mL (200-900)
[2024-09-09 08:19] LABS: HBS Num1 14.46 mIU/mL (0-7.99); ~Hepatitis B Surface Antibody REACTIVE (Nonreactive)
[2024-09-11 04:43] LABS: TS Negative Control Passed; TS Panel A 0; TS Panel B 0; TS Positive Control Passed; TSpotTB Negative (Negative)
== END 2024-09-08 10:58 | disposition home or self-care (01) ==
LOC: HO.LAB 10:57
PROVIDERS: PCP Internal Medicine; Visit Provider Internal Medicine
DX: D50.9 Iron deficiency anemia, unspecified (principal); D51.0 Vitamin B12 deficiency anemia due to intrinsic factor deficiency; E78.01 Familial hypercholesterolemia; R74.01 Elevation of levels of liver transaminase levels; Z11.1 Encounter for screening for respiratory tuberculosis
CPT/HCPCS: 36415; 80053; 80061; 82607; 82728; 85025; 86481; 86704; 86706; 87340

== ENCOUNTER 2025-01-13 16:53 | Emergency (ER) | payer OTHER, SELFPAY ==
--- NOTE | ~2025-01-13 | CT_ITS ---
CLINICAL HISTORY: RLQ PAIN CT abdomen and pelvis with contrast Comparison: None Findings: Mild emphysematous changes and scarring of the imaged lung bases. Mild fat deposition of the liver including adjacent to the falciform ligament. The gallbladder is surgically absent. Mild periportal edema. The adrenal glands are normal. Spleen is nonenlarged. Mild volume loss of the pancreas noted. No hydronephrosis. No suspicious features of the imaged cystic lesions in the kidneys accounting for motion artifacts. Mild prominence of the renal pelvis. Small mesenteric lymph nodes are likely reactive. No small bowel obstruction. Severe stool burden is present. Imaged appendix within normal limits (image 27 of series 7). No free intraperitoneal air. Mixed density of the uterus is nonspecific concerning for endometrial lesions. Subserosal fibroid also considered by CT with mass-effect measuring 3.5 x 2.7 x 2.2 cm. No adnexal soft tissue mass. Mild-moderate wall thickening of the urinary bladder is nonspecific and may reflect cystitis. Degenerative changes include the pubic symphysis, hips, SI joints, and spine, with multifocal facet arthropathy. Mild/minimal vertebral height losses appear old and accentuated by Schmorl's nodes. Facet arthropathy appears most pronounced in the lower lumbar spine, left worse than right. IMPRESSION: 1. Mild-moderate wall thickening of the urinary bladder. 2. Severe stool burden present. No small bowel obstruction. 3. Abnormal appearance of the uterus is nonspecific by CT. Please consider nonemergent characterization with ultrasound, if not already achieved. This document has been electronically signed by: Jack Tomlin MD on 01/13/2025 22:23:30
[2025-01-13 17:59] VITALS: BP 161/92; PULSE 81; RESP 16; TEMP 36.6; O2SAT 98; BMI 26.0
[2025-01-13 18:23] LABS: MANUAL DIFF FLAG NO
[2025-01-13 18:33] LABS: Appearance Urine Clear; Basophils Percent Auto 0.5 % (0-2); Color Urine Yellow; Eosinophils Absolute Auto 0.1 X10*3/uL (0.0-0.4); Eosinophils Percent Auto 2.3 % (0-4); Glucose Urine UA Negative (Negative); Hematocrit 40.9 % (37.0-47.0); Hemoglobin 13.8 g/dl (12.0-16.0); Imm Gran Abs Auto 0.01 X10*3/uL (0.00-0.03); Imm Gran Pct Auto 0.2 % (0.0-0.4); Leukocyte Esterase Urine Small (1+) (Negative); Lymphocytes Absolute Auto 1.8 X10*3/uL (1.2-4.9); Lymphocytes Percent Auto 29.3 % (20-40); Mean Corpuscular HGB Conc 33.7 g/dl (31.0-35.0); Mean Corpuscular Hemoglobin 29.8 pg (27.0-33.0); Mean Corpuscular Volume 88.3 fL (80.0-98.0); Mean Platelet Volume 9.7 fL (9.4-12.3); Monocytes Absolute Auto 0.4 X10*3/uL (0.1-1.2); Monocytes Percent Auto 6.2 % (2-11); Neutrophils Absolute Auto 3.7 x10*3/uL (2.0-8.3); Neutrophils Percent Auto 61.5 % (45-73); Nitrite Urine Negative (Negative); Platelet Count 188 X10*3/uL (160-400); Red Blood Count 4.63 X10*6/uL (4.20-5.50); Red Cell Distribution Width 11.9 % (11.0-16.0); UMIC TRIGGER UACC YES; Urine Blood Negative (Negative); Urine Ketones Negative (Negative); Urine Protein Negative (Neg-Trace)
[2025-01-13 18:43] LABS: Bacteria Urine None Seen (None Seen); Hyaline Casts Urine 0-2 /LPF (0-2); RBC Urine 0-2 /HPF (0-2); Squamous Epithelial Cell Urine 0-2 /HPF (0-2); UACC Culture Trigger YES; WBC Urine 0-5 /HPF (0-5)
[2025-01-13 18:46] LABS: Alanine Aminotransferase 94 U/L (0-31); Albumin Level 4.6 g/dL (3.5-5.0); Anion Gap 11 (12-20); Aspartate Amino Transferase 40 U/L (5-31); Bilirubin Total 0.6 mg/dL (0.0-1.0); Blood Urea Nitrogen 17 mg/dL (9-16); Calcium 9.3 mg/dL (8.4-10.2); Carbon Dioxide 28 mmol/L (22-29); Chloride 108 mmol/L (96-108); Creatinine Clr Calc Pharmacy 67.7; Estimated Glomerular Filt Rate > 60; Glucose Random 97 mg/dL (60-115); Potassium 4.3 mmol/L (3.3-5.1); Sodium 143 mmol/L (135-145)
[2025-01-13 19:24] LABS: Alkaline Phosphatase 97 U/L (39-117)
--- NOTE | 2025-01-13 19:54 | ED.GENADULT ---
HPI - General Adult General Chief complaint: Abdominal Pain Stated complaint: ?Appendicitis, sent from Time Seen by Provider: 01/13/25 21:16 Source: patient Mode of arrival: ambulatory Limitations: no limitations History of Present Illness ED Provider: DR. Pepe HPI narrative: 64-year-old female came in for evaluation of right lower quadrant abdominal pain x2 days pain is progressively getting worse, reports pain while she is walking or moving her right leg, patient is also been having dysuria patient is 1 to UTI and recently was treated with antibiotic. +nausea, no vomiting,, decreased appetite. Last bowel movement was yesterday and was normal, abdominal surgical history significant for cholecystectomy. Related Data Home Medications ?Medication ?Instructions ?Recorded ?Confirmed multivitamin 1 tab PO DAILY 11/05/20 05/19/24 naproxen sodium 220 mg capsule 220 mg PO BID PRN Pain 11/05/20 05/19/24 (Aleve) ezetimibe 10 mg tablet 10 mg PO DAILY 09/26/23 05/19/24 rosuvastatin 40 mg tablet 40 mg PO BEDTIME 05/14/24 05/19/24 tramadol 50 mg tablet 50 mg PO DAILY PRN Sleep 05/19/24 05/19/24 Previous Rx's ?Medication ?Instructions ?Recorded ciprofloxacin HCl 250 mg tablet 250 mg PO BID #20 tabs 01/13/25 (Cipro) phenazopyridine 200 mg tablet 200 mg PO TID 6 doses #6 tabs 01/13/25 (Pyridium) Allergies Allergy/AdvReac Type Severity Reaction Status Date / Time gabapentin Allergy Mild Nausea Verified 01/13/25 18:02 atorvastatin AdvReac Mild myalgia Verified 01/13/25 18:02 duloxetine AdvReac Mild headache/lack Verified 01/13/25 18:02 of emotion Review of Systems Review of Systems: All other systems are reviewed and are negative Constitutional: Reports as per HPI and Reports no additional constitutional complaints Eyes: Reports as per HPI and Reports no additional eye complaints Reports system reviewed and no additional complaints, except as documented Cardiovascular: Reports as per HPI and Reports no additional cardiovascular complaints Respiratory: Reports as per HPI and Reports no additional respiratory complaints Gastrointestinal: Reports as per HPI and Reports no additional gastrointestinal complaints Genitourinary: Reports no additional female genitourinary complaints Musculoskeletal: Reports no additional musculoskeletal complaints Skin/Breast: Reports system reviewed and no additional complaints, except as docu Psychiatric: Reports no additional psychiatric complaints Endocrine: Reports no additional endocrine complaints Hematologic/Lymphatic: Reports no additional hematologic/lymphatic complaints Allergic/Immunologic: Reports no additional allergic/immunologic complaints Reports system reviewed and no additional complaints, except as documented and Reports Abnormal speech present [facility] Past Medical History Medical History DJD (degenerative joint disease) Anorexia nervosa with bulimia PTSD (post-traumatic stress disorder) Depression Arthritis Migraine Cocaine abuse Back pain History of depression History of pernicious anemia Hyperlipidemia Bulimia Anorexia IBS (irritable bowel syndrome) Fibromyalgia Surgical History History of excision of mass (04/19/23) H/O colonoscopy Hx of cataract extraction Hx of breast implants, bilateral Hx of cholecystectomy Hx of tonsillectomy Social History Social History Are you a primary dog day care attendant to a significant other at home: No Do you presently have visiting nurse or other home services: No Patient Tobacco Use Status: Former Tobacco user Tobacco use type: Cigarette Cigarette Packs Per Day: 0 Cigarettes Per Day: 0 Years Smoked: 13 Second Hand Smoke Exposure: No 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al status: employed 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: [employer] Physical Exam ED Vital Signs: Vital Signs - 24 hr 01/13/25 17:59 01/13/25 21:22 01/13/25 23:18 Temperature 97.9 F 97.6 F 97.9 F Pulse Rate 81 75 70 Respiratory Rate 16 18 16 Blood Pressure 161/92 H 160/71 H 135/84 Pulse Oximetry 98 96 98 Oxygen Delivery Method Room Air Room Air Room Air 01/13/25 23:42 Temperature 97.9 F Pulse Rate 70 Respiratory Rate 16 Blood Pressure 135/84 Pulse Oximetry 98 Oxygen Delivery Method Room Air BMI result Body Mass Index 26.0 Vital signs have been reviewed and appear to be correct. Blood pressure elevated. Heart rate normal. Respiratory rate normal. Temperature normal. Oxygen saturation normal. Appearance: Alert. Oriented X3. No acute distress. Head: Normal external exam. Normocephalic. Atraumatic. No Ramos signs noted. No raccoon eyes noted Eyes: PERRLA. EOMI. Conjunctiva and sclera normal. Eyelids normal. ENT: TM's Normal. Pharynx normal. Uvula midline. Moist mucous membranes. No trismus noted. No drooling noted. No muffled voice noted. Neck: Normal inspection. Neck supple. FROM. No adenopathy. Thyroid Normal. No meningeal signs. No neck mass noted. CVS: Normal heart rate and rhythm. Heart sound normal. No murmurs noted. Pulses normal throughout. Respiratory: No respiratory distress. Painless inspiration. Breath sounds normal. No wheezes/rales/rhonchi noted. Chest nontender. No accessory muscle usage noted or decreased air movement noted. Abdomen: Soft, RLQ tenderness, no rebound tenderness, no guarding. Bowel sounds normal in all 4 quadrants. No distention noted. No organomegaly noted. No visible injury noted. Back: No CVA tenderness. Full range of motion noted. Skin: Skin warm and dry. Normal skin color. Normal skin turgor. No rashes/lesions/lacerations noted. Extremities: No lower extremity edema. Extremities exhibit normal range of motion. Extremities nontender. Neuro: Oriented X 3. Cranial nerve exam: II-XII are grossly intact No motor deficit. No sensory deficit. Reflexes normal. Course Reevaluation(s) Reevaluation #1: 64-year-old female presented with dysuria and lower pelvic pain, suspicion for acute appendicitis with normal CT abdomen and pelvis and normal appearing appendix. CT revealing cystitis and up looking uterus possibly fibroid. Patient was instructed to follow-up with Dr. Zayas for urologist and Dr. Johnston for the patient and patient will be placed on Cipro twice a day, and Pyridium patient was instructed to drink plenty of fluids. Time: 23:07 Medications Administered Discontinued Medications Generic Name Dose Route Start Last Admin Trade Name Freq PRN Reason Stop Dose Admin Lactated Ringer's 1,000 mls @ 999 mls/hr 01/13/25 21:30 01/13/25 23:42 Lr IV 01/13/25 22:30 Infused .Q1H1M ABHISHEK Infusion Iohexol 85 ml 01/13/25 21:47 01/13/25 21:48 Iohexol 350 Mg/Ml 100 Ml Infus..Btl IV 01/13/25 21:48 85 ml ONCE ONE Administration Ketorolac Tromethamine 15 mg 01/13/25 21:23 01/13/25 22:03 Ketorolac Tromethamine 15 Mg/Ml Vial IVPUSH 01/13/25 21:24 15 mg ONCE ONE Administration Morphine Sulfate 1 mg 01/13/25 21:23 01/13/25 22:02 Morphine Sulfate 2 Mg/Ml Cartridge IVPUSH 01/13/25 21:24 1 mg ONCE ONE Administration Protocol Medical Decision Making Medical Decision Making [facility] Narrative: RmE: 64 year female presents to ED for right-sided abdominal pain. Patient was being treated for UTI not have right lower quadrant pain. Patient is sent to evaluate for possible appendicitis. Now abdominal tenderness negative for any rebound. Labs ordered. Patient to be evaluated her main ED Differential Diagnosis Differential Diagnoses: The differential diagnosis associated with the presentation includes (Acute appendicitis, colitis, diverticulitis, ovarian cyst, kidney stone, pyelonephritis, UTI, cystitis, electrolyte derangement, severe anemia.) Admission/Observation Consideration of admission/observation: Escalation of care including admission/observation considered Lab Data [facility] Lab Attestation statement: I reviewed the patient's lab results. 01/13/25 18:17 01/13/25 18:17 Labs: Lab Results 01/13/25 Range/Units 18:17 WBC 6.0 (4.8-10.8) X10*3/uL RBC 4.63 (4.20-5.50) X10*6/uL Hgb 13.8 (12.0-16.0) g/dl Hct 40.9 (37.0-47.0) % MCV 88.3 (80.0-98.0) fL MCH 29.8 (27.0-33.0) pg MCHC 33.7 (31.0-35.0) g/dl RDW 11.9 (11.0-16.0) % Plt Count 188 (160-400) X10*3/uL MPV 9.7 (9.4-12.3) fL Immature Gran % (Auto) 0.2 (0.0-0.4) % Neut % (Auto) 61.5 (45-73) % Lymph % (Auto) 29.3 (20-40) % Arthur % (Auto) 6.2 (2-11) % Eos % (Auto) 2.3 (0-4) % Baso % (Auto) 0.5 (0-2) % Lymph # (Auto) 1.8 (1.2-4.9) X10*3/uL Arthur # (Auto) 0.4 (0.1-1.2) X10*3/uL Eos # (Auto) 0.1 (0.0-0.4) X10*3/uL Baso # (Auto) 0.0 (0.0-0.2) X10*3/uL Abs Immat Gran (auto) 0.01 (0.00-0.03) X10*3/uL Absolute Neuts (auto) 3.7 (2.0-8.3) x10*3/uL Absolute Nucleated RBC 0.000 (0.0-0.012) X10*3/uL Nucleated RBC % (auto) 0.0 (0.0-0.2) /100WBC Sodium 143 (135-145) mmol/L Potassium 4.3 (3.3-5.1) mmol/L Chloride 108 (96-108) mmol/L Carbon Dioxide 28 (22-29) mmol/L Anion Gap 11 L (12-20) BUN 17 H (9-16) mg/dL Creatinine 0.86 (0.5-1.4) mg/dL Estim Creat Clear Calc 67.7 Estimated GFR > 60 Random Glucose 97 (60-115) mg/dL Calcium 9.3 D (8.4-10.2) mg/dL Total Bilirubin 0.6 (0.0-1.0) mg/dL AST 40 H (5-31) U/L ALT 94 H (0-31) U/L Alkaline Phosphatase 97 (39-117) U/L Total Protein 7.0 (6.5-8.0) g/dL Albumin 4.6 (3.5-5.0) g/dL Urine Color Yellow Urine Appearance Clear Urine pH 8.0 (5.0-9.0) Ur Specific [place] 1.010 (1.005-1.025) Urine Protein Negative (Neg-Trace) mg/dL Urine Glucose (UA) Negative (Negative) mg/dL Urine Ketones Negative (Negative) mg/dL Urine Blood Negative (Negative) Urine Nitrite Negative (Negative) Ur Leukocyte Esterase Small (1+) H (Negative) Urine RBC 0-2 (0-2) /HPF Urine WBC 0-5 (0-5) /HPF Ur Squamous Epith Cells 0-2 (0-2) /HPF Urine Bacteria None Seen (None Seen) Hyaline Casts 0-2 (0-2) /LPF Independent Interpretation I performed an independent interpretation of an: CT Scan (Abdomen and pelvis:1. Mild-moderate wall thickening of the urinary bladder. 2. Severe stool burden present. No small bowel obstruction. 3. Abnormal appearance of the uterus is nonspecific by CT. Please consider nonemergent characterization with ultrasound, if not already achieved.) Radiology Impression Discussion of test interpretation with radiology: I have reviewed the radiologist's reading. Discharge Plan Discharge Clinical Impression: Cystitis, Abdominal pain, Fibroid Patient Disposition: Home, Self-Care Instructions: Pelvic Pain in Women (ED) Prescriptions: New ciprofloxacin HCl [Cipro] 250 mg tablet 250 mg PO BID Qty: 20 0RF phenazopyridine [Pyridium] 200 mg tablet 200 mg PO TID Qty: 6 0RF No Action multivitamin Tablet 1 tab PO DAILY naproxen sodium [Aleve] 220 mg Capsule 220 mg PO BID PRN (Reason: Pain) rosuvastatin 40 mg tablet 40 mg PO BEDTIME tramadol 50 mg tablet 50 mg PO DAILY PRN (Reason: Sleep) ezetimibe 10 mg tablet 10 mg PO DAILY Referrals: Berta Bland MD [Primary Care Provider] - Radha Sloan MD [Physician] - Hany Johnston MD [Physician] - Interventions: ED Discharge Assessment Last Done: 01/13/25 23:42 Discharge Date/Time: 01/13/25 23:43 Print Language: Maltese
--- OUTSIDE RECORDS SUMMARY | 2025-01-13 20:52 | XMS_ITS | Patient Health Record ---
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 Role Phone Berta Bland Primary Care Provider Unavailab Cristo Paez Unavailable [phone] Reason For Referral No Information Medications Medication SIG (Take, Route, Frequency, Duration) Notes Start Date End Date Status CoQ-10 30 MG 1 capsule with a shashi l Orally Once a day for 30 day(s) Active Rosuvastatin Calcium 10 MG TAKE 1 TABLET BY MOUTH AT BEDTIME Oral for 90 Active Multivitamin - 1 tablet Orally Once a day for 30 day(s) Active Aleve 220 MG 1 capsule with food or milk as needed Orally every 12 hrs Active Social History Tobacco Use: Social History Observation Description Date Details (start date - stop date) Current Smoker NA - NA Tobacco Use/Smoking Question Answer Notes Patient is a current smoker How often do you smoke cigarettes? some days, bu t not every day How many cigarettes a day do you smoke? 5 or les s Are you interested in quitting? Ready to quit Alcohol Screen Question Answer Notes Did you have a drink contain ing alcohol in the past year? Yes How often did you have a dri nk containing alcohol in the past year? Never (0 point) How many drinks did you have on a typical day when you were drinking in the past year? 1 or 2 drinks (0 point) How often did you have 6 or more drinks on one occasion in the past year? Never (0 point) Points 0 Interpretation Negative Section Notes: Rare smoker; no sig alcohol Problems Problem Type SNOMED Code ICD Code Onset Dates Problem Status W/U Status Risk Notes Problem Irritable bowel syndrome (21991441) Irritable bowel syndrome (K58.9) Active confirmed Problem Screening for malignant neoplasm of colon (707113808) Encounter for screening for malignant neoplasm of colon (Z12.11) Active confirmed Problem Diarrhea (05684732) Diarrhea (R19.7) Active confirmed Plan Of Treatment Pending Test Test Name Order Date CELIAC PANEL #10 10/28/2020 Future Test Test Name Order Date COLONOSCOPY 10/28/2020 Next Appt Details Provider Name:Cristo Sims , 03/26/2025 10:40:00 AM, [address] [facility], [address], [place], [address], Provider Name:Cristo Sims , 04/03/2025 01:00:00 PM, [address] [facility], [address], [place], [address], Insurance Providers Payer Name Payer Address Payer Phone Subscriber Number Group Number Insured Name Patient Relationship to Insured Coverage Start Date Coverage End Date [facility] [employer] [address] [place] [address] [id number] [employer] Self - patient is the insured MEDICAID OF [employer] [address] [place] [address] [id number] [employer] Self - patient is the insured Medical (General) History Medical History History ICD Code Fibromyalgia Denies NH,DM,CVA,Lung disease,renal dise ase IBS diarrhea/constipation Anorexia/Bulemia since she was young Hyperlipidemia Surgical History Surgery Date(Month/Year) Tonsillectomy Cholecystectomy Breast implant
--- OUTSIDE RECORDS SUMMARY | 2025-01-13 20:52 | XMS_ITS | Clinical Summary ---
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 edentulism 05/21/2024 Encounters Date Type Department Care Team Description 01/05/2025 9:00 AM EDT Office Visit [facility] [address] [place] [address] Wilmer Malagon DDS Complete edentulism, unspecified edentulism class (Primary Dx); Severe atrophy of mandible 12/05/2024 9:00 AM EDT Office Visit [facility] [address] [place] [address] Wilmer Malagon DDS Complete edentulism, unspecified edentulism class (Primary Dx) from Last 3 Months Social History Tobacco Use Types Packs/Day Years Used Date Smoking Tobacco: Former Cigarettes Passive Smoke Exposure: Never Smokeless Tobacco: Former Tobacco Cessation:Counseling Given: No Alcohol Use Standard Drinks/Week Comments Defer 0 (1 standard drink = 0.6 oz pur e alcohol) Comments Unknown Sex and Gender Information Value Date Recorded Sex Assigned at Female 07/24/2022 10:23 AM EDT Legal Sex Female 10:23 AM EDT Gender Identity Female 05/20/2024 2:14 PM EDT Sexual Orientation Straight 05/20/2024 2: 14 PM EDT Last Filed Vital Signs Vital Sign Reading Time Taken Comments Blood Pressure 116/74 01/05/2025 9:12 AM EDT Pulse 64 01/05/2025 9:12 AM EDT Temperature - - Respiratory Rate - - Oxygen Saturation - - Inhaled Oxygen Concentration - - Weight - - Height - - Body Mass Index - - Plan of Treatment Upcoming Encounters Date Type Department Care Team (Late st Contact Info) Description 02/06/2025 3:30 PM EDT Office Visit [facility] [address] [place] [address] Wilmer Malagon DDS [address] [place] [address] Health Maintenance Due Date Last Done Comments CT Colonography 1960 Colonoscopy 1960 Colorectal Cancer Screening 1960 Dental Prophylaxis 1960 Depression Screening 1960 FIT DNA/Cologuard 1960 FIT 1960 FOBT 1960 HIV Screening 1960 SDOH Screening 1960 Sigmoidoscopy 1960 Alcohol/Substance Use Screening 1972 Hepatitis C Screening 1978 DTaP/Tdap/Td Vaccines (1 - Tdap) 1979 Pap Smear 1981 Cervical Cancer Screening 1990 HPV/Cotest 1990 Mammogram 2000 Dental X-Ray: Bitewings 04/01/2010 03/31/2009 Pneumococcal Vaccine: 50+ Years (1 of 1 - PCV) 2010 Zoster Vaccines (1 of 2) 2010 COVID-19 Vaccine (1 - 2023-2 5 season) 2024 Influenza Vaccine (#1) 2024 Dental Oral Exam 11/22/2024 05/21/2024, 09/22/2016, 04/27/2009 Tobacco Screening 01/05/2026 01/05/2025 Dental X-Ray: Full Mouth 05/22/2027 024, 03/31/2009 RSV Patients and Patients Aged 60 years or older (1 - 1-dose 75+ series) 2035 HIB Vaccines Aged Out No longer eligi ble based on patient's age to complete this topic HPV Vaccines Aged Out No longer eligi ble based on patient's age to complete this topic Hepatitis A Vaccines Aged Out No long er eligible based on patient's age to complete this topic Hepatitis B Vaccines Aged Out No long er eligible based on patient's age to complete this topic IPV Vaccines Aged Out No longer eligi ble based on patient's age to complete this topic Meningococcal Vaccine Aged Out No jake dre eligible based on patient's age to complete this topic RSV under 20 months Aged Out No longe r eligible based on patient's age to complete this topic Rotavirus Vaccines Aged Out No longer eligible based on patient's age to complete this topic Procedures Procedure Name Priority Date/Time Associated Diagnosis Comments BITE REGISTRATION Routine 01/05/2025 9:0 0 AM EDT DENTURE IMPRESSION Routine 12/05/2024 9: 00 AM EDT PANORAMIC RADIOGRAPHIC IMAGE Routine 05/21/2024 9:30 AM EDT PERIODIC ORAL EVALUATION - ESTABLISHED PATIENT Routine 05/21/2024 9:30 AM EDT INTRAORAL - COMPLETE SERIES OF RADIOGRAPHIC IMAGES Routine 03/31/2009 12:00 AM EDT from Last 3 Months or Most Recently Relevant to Health Maintenance Insurance [id number] [id number] [facility] [address] [place] [address] [place] [address]
[2025-01-13 21:22] VITALS: BP 160/71; PULSE 75; RESP 18; TEMP 36.4; O2SAT 96
--- NOTE | 2025-01-13 21:32 | PC.NURSE ---
Patient presents with sharp RUQ pain radiating to her back for the past 2 days with assoc nausea. Lungs clear bilat. Respirations even and non-labored. Abdomen soft, with tenderness to the RUQ. Positive bowel sounds. Positive pedal pulses with no edema. Provider at the bedside.
--- NOTE | 2025-01-13 21:37 | PC.NURSE ---
Patiet extremely upset as he had been waiting a approximately 3 hours for a MSE. Spoke with the patient and family and offered to start his care. Which he agreed with. When the tech attempted to obtain his labs, patient decided to LWBS. PIV removed and patient ambulate out of the department with a steady gait.
[2025-01-13] MEDS: iohexoL 350 MG/ML 100 ML INFUS..BTL 85 ML IV (21:48)
[2025-01-13] MEDS: Lactated Ringers 1,000 ML 999 ML IV (22:02)
[2025-01-13] MEDS: Morphine Sulfate 2 MG/ML CARTRIDGE 1 MG IVPUSH (22:02)
[2025-01-13] MEDS: Ketorolac Tromethamine 15 MG/ML VIAL IVPUSH (22:03)
[2025-01-13 23:18] VITALS: BP 135/84; PULSE 70; RESP 16; TEMP 36.6; O2SAT 98
[2025-01-13 23:42] VITALS: BP 135/84; PULSE 70; RESP 16; TEMP 36.6; O2SAT 98
== END 2025-01-13 23:43 | disposition home or self-care (01) ==
PROVIDERS: Emergency Provider Emergency Medicine; PCP Internal Medicine
DX: R10.31 Right lower quadrant pain (principal); R30.0 Dysuria; R11.0 Nausea; N30.90 Cystitis, unspecified without hematuria; Z79.899 Other long term (current) drug therapy; Z87.891 Personal history of nicotine dependence
CPT/HCPCS: 36415; 74177; 80053; 81001; 85025; 87086; 96361; 96374; 99284; 99285; J1885; J2270; J7120; Q9967

== ENCOUNTER → 2025-01-13 21:22 | Outpatient (BNV) | payer OTHER, SELFPAY | PROVIDERS: Emergency Provider Emergency Medicine; PCP Internal Medicine; Visit Provider Radiology Neuroradiology | DX: R10.31 Right lower quadrant pain (principal) | CPT/HCPCS: 74177 ==

== ENCOUNTER 2025-02-13 12:55 | Outpatient (REF) | payer OTHER, SELFPAY ==
--- NOTE | ~2025-02-13 | US_ITS ---
EXAMINATION: US PELVIS TRANSABDOMINAL AND TRANSVAGINAL HISTORY: FIBROIDS COMPARISON: Correlation is made with a CT of the abdomen and pelvis dated 01/13/2025. TECHNIQUE: Transabdominal and endovaginal real-time 2D lynch-scale ultrasound was performed. FINDINGS: Uterus: The uterus is normal in size, measuring 9.9 x 2.9 x 5.0 cm. Myometrium has a normal echotexture. No fibroids are identified. Endometrium: The endometrial stripe measures 22 mm in thickness and is markedly heterogeneous, with multiple cystic spaces noted. Right ovary: The right ovary measures 2.4 x 1.4 x 1.8 cm. The right ovary is normal in size and echotexture. Left ovary: The left ovary measures 2.1 x 1.0 x 2.1 cm. The left ovary is normal in size and echotexture. Pelvic fluid: none. US/US pelvic and transvaginal IMPRESSION: Markedly heterogeneous and thickened endometrial stripe containing multiple cystic spaces. Neoplasm is not excluded, and [employer] consultation is advised. Findings were sent to Dr. Berta Bland by secure text message on 02/13/2025 at 1:54 PM. Electronically signed by: Cristo Mayorga MD 02/13/2025 01:55 PM EDT
--- OUTSIDE RECORDS SUMMARY | 2025-02-13 12:57 | XMS_ITS | Clinical Summary ---
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 edentulism 05/21/2024 Encounters Date Type Department Care Team Description 02/06/2025 3:30 PM EDT Office Visit [facility] [address] [place] [address] Wilmer Malagon DDS Complete edentulism, unspecified edentulism class (Primary Dx); Severe atrophy of mandible 01/05/2025 9:00 AM EDT Office Visit [facility] [address] [place] [address] Wilmer Malagon DDS Complete edentulism, unspecified edentulism class (Primary Dx); Severe atrophy of mandible 12/05/2024 9:00 AM EDT Office Visit [facility] [address] [place] [address] Wilmer Malagon DDS Complete edentulism, unspecified edentulism [...] Sign Reading Time Taken Comments Blood Pressure 128/74 02/06/2025 3:28 PM EDT Pulse 64 01/05/2025 9:12 AM EDT Temperature - - Respiratory Rate - - Oxygen Saturation - - Inhaled Oxygen Concentration - - Weight - - Height - - Body Mass Index - - Plan of Treatment Upcoming Encounters Date Type Department Care Team (Late st Contact Info) Description 03/06/2025 1:30 PM EDT Office Visit [facility] [address] [place] [address] Wilmer Malagon, DDS [address] [place] [address] Health Maintenance Due Date Last Done Comments CT Colonography 1960 Colonoscopy 1960 Colorectal Cancer Screening 1960 Dental Prophylaxis 1960 Depression Screening 1960 FIT DNA/Cologuard 1960 FIT 1960 FOBT 1960 HIV Screening 1960 SDOH Screening 1960 Sigmoidoscopy 1960 Disability Screening 1960 Alcohol/Substance Use Screening 1972 Hepatitis C Screening 1978 DTaP/Tdap/Td Vaccines (1 - Tdap) 1979 Pap Smear 1981 Cervical Cancer Screening 1990 HPV/Cotest 1990 Mammogram 2000 Dental X-Ray: Bitewings 04/01/2010 03/31/2009 Pneumococcal Vaccine: 50+ Years (1 of 1 - PCV) 2010 Zoster Vaccines (1 of 2) 2010 COVID-19 Vaccine ( - 2023-2 5 season) 2024 Influenza Vaccine (#1) 2024 Dental Oral Exam 11/22/2024 05/21/2024, 09/22/2016, 04/27/2009 Tobacco Screening 02/06/2026 02/06/2025 Dental X-Ray: Full Mouth 05/22/2027 024, 03/31/2009 [...] patient's age to complete this topic Meningococcal B Vaccine Aged Out No l onger eligible based on patient's age to complete [...] Date/Time Associated Diagnosis Comments BITE REGISTRATION Routine 02/06/2025 3:3 0 PM EDT BITE REGISTRATION Routine 01/05/2025 9:0 0 AM EDT DENTURE IMPRESSION Routine 12/05/2024 9: 00 AM EDT PANORAMIC RADIOGRAPHIC IMAGE Routine 05/21/2024 9:30 AM EDT PERIODIC ORAL EVALUATION - ESTABLISHED PATIENT Routine 05/21/2024 9:30 AM EDT INTRAORAL - COMPLETE SERIES OF RADIOGRAPHIC IMAGES Routine 03/31/2009 12:00 AM EDT from Last 3 Months or Most Recently Relevant to Health Maintenance Insurance [facility] MEDICAID STAND ADULT
== END 2025-02-13 12:56 | disposition home or self-care (01) ==
LOC: HO.US 12:55
PROVIDERS: PCP Internal Medicine; Visit Provider Internal Medicine
DX: D25.9 Leiomyoma of uterus, unspecified (principal)
CPT/HCPCS: 76830; 76856

== ENCOUNTER → 2025-02-13 13:15 | Outpatient (BNV) | payer OTHER, SELFPAY | PROVIDERS: PCP Internal Medicine; Visit Provider Radiology Diagnostic Radiology | DX: N85.00 Endometrial hyperplasia, unspecified (principal) | CPT/HCPCS: 76830; 76856 ==

== ENCOUNTER 2025-04-13 08:32 | Outpatient (REF) | payer MEDICARE, MEDICAID, SELFPAY ==
--- OUTSIDE RECORDS SUMMARY | 2025-04-13 08:43 | XMS_ITS | Clinical Summary ---
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 Bolano clarification of case 03/06/2025 1:30 PM EDT Office Visit [facility] [address] [place] [address] Wilmer Malagon DDS Complete edentulism, unspecified edentulism class (Primary Dx) 02/06/2025 3:30 PM EDT Office Visit [facility] [address] [place] [address] Wilmer Malagon DDS Complete edentulism, unspecified edentulism class (Primary Dx); Severe atrophy of mandible from Last 3 Months Social History Tobacco [...] Sign Reading Time Taken Comments Blood Pressure 128/76 04/13/2025 8:00 AM EDT Pulse 70 04/13/2025 8:00 AM EDT Temperature - - Respiratory Rate - - Oxygen Saturation - - Inhaled Oxygen Concentration - - Weight - - Height - - Body Mass Index - - Plan of Treatment Upcoming Encounters Date Type Department Care Team (Late st Contact Info) Description 05/01/2025 3:30 PM EDT Office Visit [facility] [address] [place], [place] [id number] Wilmer Malagon DDS [address] [place] [address] Health Maintenance Due Date Last Done Comments CT Colonography 1960 Colonoscopy 1960 Colorectal Cancer Screening 1960 Dental Prophylaxis 1960 Depression Screening 1960 FIT DNA/Cologuard 1960 FIT 1960 FOBT 1960 SDOH Screening 1960 Sigmoidoscopy 1960 Alcohol/Substance Use Screening 1972 Hepatitis C Screening 1978 DTaP/Tdap/Td Vaccines (1 - Tdap) 1979 Pap Smear 1981 Cervical Cancer Screening 1990 HPV/Cotest 1990 Mammogram 2000 Dental X-Ray: Bitewings 04/01/2010 03/31/2009 Pneumococcal Vaccine: 50+ Years (1 of 1 - PCV) 2010 Zoster Vaccines (1 of 2) 2010 COVID-19 Vaccine ( - 2023-2 5 season) 2024 Dental Oral Exam 11/22/2024 05/21/2024, 09/22/2016, 04/27/2009 Influenza Vaccine (#1) 2025 Tobacco Screening 04/13/2026 04/13/2025 Dental X-Ray: Full Mouth 05/22/2027 024, 03/31/2009 [...] Procedure Name Priority Date/Time Associated Diagnosis Comments WAX TRY IN Routine 04/13/2025 8:00 AM EDT WAX TRY IN Routine 03/20/2025 8:00 AM EDT WAX TRY IN Routine 03/06/2025 1:30 PM EDT BITE REGISTRATION Routine 02/06/2025 3:3 0 PM EDT PANORAMIC RADIOGRAPHIC IMAGE Routine 05/21/2024 9:30 AM EDT PERIODIC ORAL EVALUATION - ESTABLISHED PATIENT Routine 05/21/2024 9:30 AM EDT INTRAORAL - COMPLETE SERIES OF RADIOGRAPHIC IMAGES Routine 03/31/2009 12:00 AM EDT from Last 3 Months or Most Recently Relevant to Health Maintenance Insurance [facility] [place] [id number]
--- OUTSIDE RECORDS SUMMARY | 2025-04-13 08:43 | XMS_ITS | Patient Health Record ---
Author Organization [facility] Address [address] [place] [address] Care Team Providers Care Sampler Radioactive Waste Name Role Phone Arislizy Berta Primary Care Provider UnavailCristo Alonzo Unavailable [phone] Allergies No Known Allergies Reason For Referral No Information Medications Medication SIG (Take, Route, Frequency, Duration) Notes Start Date End Date Status Naproxen 500 MG 1 tablet with food o r milk as needed Orally every 12 hrs Active Multivitamin - 1 tablet Orally Once a day for 30 day(s) Active Acetaminophen 325 MG 1 tablet as needed Orally every 6 hrs Active Co Q-10 200 MG TAKE ONE CAPSULE BY MOUTH EVERY DAY Oral for 30 Days Active Ezetimibe 10 MG TAKE 1 TABLET BY RICHELLE TH EVERY DAY Oral for 90 Days Active Rosuvastatin Calcium 10 MG TAKE 1 TABLET BY MOUTH AT BEDTIME Oral for 90 Active CoQ-10 30 MG 1 capsule with a shashi l Orally Once a day for 30 day(s) Active Immunizations Vaccine Route Administration Date Status Comme nts Influenza Unknown 07/15/2024 Administered Social History Tobacco Use: Social History Observation Description Date Details (start date - stop date) Former Smoker NA - NA Alcohol Screen Question Answer Notes Did you [...] Never (0 point) Points 0 Interpretation Negative Tobacco Control (Standard) Question Answer Notes Tobacco use: Former smoker Section Notes: Nonsmoker; no sig alcohol Rare smoker; no sig alcohol Problems Problem Type SNOMED Code ICD Code Onset Dates Problem Status W/U Status Risk Notes Problem Irritable bowel syndrome (43899587) Irritable bowel syndrome (K58.9) Active confirmed Problem Screening for malignant neoplasm of colon (229981053) Encounter for screening for malignant neoplasm of colon (Z12.11) Active confirmed Problem Constipation (31545329) Constipation (K59.00) Active confirmed Problem Diarrhea (90912459) Diarrhea (R19.7) Active confirmed Problem Heartburn (22521830) Heartburn (R12) Active confirmed Problem Early satiety (382830409) Early satiety (R68.81) Active confirmed Problem Gastroesophageal reflux disease (589734198) GERD (gastroesophage al reflux disease) (K21.9) Active confirmed Vital Signs Temperature 97.1 degrees Fahrenheit 04/03/2025 Blood pressure diastolic 01 mm Hg 04/03/2025 Height 66 in 04/03/2025 Blood pressure systolic 001 mm Hg 04/03/2025 Weight 157.4 lbs 04/03/2025 BMI 25.4 kg/m2 04/03/2025 Procedures Procedure Date Ordered Date Performed Result Body Sit e UPPER GI ENDOSCOPY 04/03/2025 N/A Encounters Encounter Location Date Provider Diagnosis [facility] [address] [place] [phone] 04/03/2025 Cristo Sims Early satiety R68.81 ; GERD (gastroesophageal reflux disease) K21.9 ; Heartburn R12 and Constipation K59.00 [facility] [address] [place] [phone] 02/24/2025 Cristo Sims Assessments Encounter Date Diagnosis (ICD Code) Assessment Notes Treatment Notes Treatment Clinical Notes Section Notes 04/03/2025 Early satiety (ICD-10 - R68.81) Overall, Ash appears well. We did discuss her longstanding irregular bowel movements in relation to irritable bowel syndrome. At this point it appears that things are predominantly associated with constipation as opposed to any diarrhea.. I have recommended that she begin using MiraLAX once or twice every day and Metamucil fiber pills once or twice a day as well. I have given her the below instructions in that regard. We did review that if her bowel movements can be made to be more regular, i.e. perhaps every other or third day rather than no more than once a week, then hopefully that would help her abdomen feel better and could very well help her upper GI complaints of the early satiety and reflux.If her constipation remains a problem despite the MiraLAX and fiber supplements I would then look into starting her on something such as Linzess. I did advise to begin using the prescription for the omeprazole that she received from you. I have also recommended an upper endoscopy for evaluation of the upper GI complaints of the early satiety and reflux. Full consent has been obtained from her for that, including risks of bleeding and perforation. The upper endoscopy will be done with monitored anesthesia care. Again, I do suspect that if we can improve her bowel regimen and get her started on the omeprazole that could potentially help the early satiety and discomfort. uMsa was comfortable with this plan. Thank you again for allowing me to participate in Musa's care. I shall continue to keep you advised of her progress. 04/03/2025 GERD (gastroesophagea l reflux disease) (ICD-10 - K21.9) Start using the daily omeprazole Overall, Ash appears well. We did discuss her longstanding irregular bowel movements in relation to irritable bowel syndrome. At this point it appears that things are predominantly associated with constipation as opposed to any diarrhea.. I have recommended that she begin using MiraLAX once or twice every day and Metamucil fiber pills once or twice a day as well. I have given her the below instructions in that regard. We did review that if her bowel movements can be made to be more regular, i.e. perhaps every other or third day rather than no more than once a week, then hopefully that would help her abdomen feel better and could very well help her upper GI complaints of the early satiety and reflux.If her constipation remains a problem despite the MiraLAX and fiber supplements I would then look into starting her on something such as Linzess. I did advise to begin using the prescription for the omeprazole that she received from you. I have also recommended an upper endoscopy for evaluation of the upper GI complaints of the early satiety and reflux. Full consent has been obtained from her for that, including risks of bleeding and perforation. The upper endoscopy will be done with monitored anesthesia care. Again, I do suspect that if we can improve her bowel regimen and get her started on the omeprazole that could potentially help the early satiety and discomfort. Musa was comfortable with this plan. Thank you again for allowing me to participate in Musa's care. I shall continue to keep you advised of her progress. 04/03/2025 Heartburn (ICD-10 - R12) Overall, Ash appears well. We did discuss her longstanding irregular bowel movements in relation to irritable bowel syndrome. At this point it appears that things are predominantly associated with constipation as opposed to any diarrhea.. I have recommended that she begin using MiraLAX once or twice every day and Metamucil fiber pills once or twice a day as well. I have given her the below instructions in that regard. We did review that if her bowel movements can be made to be more regular, i.e. perhaps every other or third day rather than no more than once a week, then hopefully that would help her abdomen feel better and could very well help her upper GI complaints of the early satiety and reflux.If her constipation remains a problem despite the MiraLAX and fiber supplements I would then look into starting her on something such as Linzess. I did advise to begin using the prescription for the omeprazole that she received from you. I have also recommended an upper endoscopy for evaluation of the upper GI complaints of the early satiety and reflux. Full consent has been obtained from her for that, including risks of bleeding and perforation. The upper endoscopy will be done with monitored anesthesia care. Again, I do suspect that if we can improve her bowel regimen and get her started on the omeprazole that could potentially help the early satiety and discomfort. Musa was comfortable with this plan. Thank you again for allowing me to participate in Musa's care. I shall continue to keep you advised of her progress. 04/03/2025 Constipation (ICD-10 - K59.00) For the constipatoion: Begin using Miralax powder once or twice every day, and 2 Metamucil fiber pills once or twice a day with a lot of fluids Overall, Ash appears well. We did discuss her longstanding irregular bowel movements in relation to irritable bowel syndrome. At this point it appears that things are predominantly associated with constipation as opposed to any diarrhea.. I have recommended that she begin using MiraLAX once or twice every day and Metamucil fiber pills once or twice a day as well. I have given her the below instructions in that regard. We did review that if her bowel movements can be made to be more regular, i.e. perhaps every other or third day rather than no more than once a week, then hopefully that would help her abdomen feel better and could very well help her upper GI complaints of the early satiety and reflux.If her constipation remains a problem despite the MiraLAX and fiber supplements I would then look into starting her on something such as Linzess. I did advise to begin using the prescription for the omeprazole that she received from you. I have also recommended an upper endoscopy for evaluation of the upper GI complaints of the early satiety and reflux. Full consent has been obtained from her for that, including risks of bleeding and perforation. The upper endoscopy will be done with monitored anesthesia care. Again, I do suspect that if we can improve her bowel regimen and get her started on the omeprazole that could potentially help the early satiety and discomfort. Musa was comfortable with this plan. Thank you again for allowing me to participate in Musa's care. I shall continue to keep you advised of her progress. Plan Of Treatment Pending Test Test Name Order Date UPPER GI ENDOSCOPY 04/03/2025 CELIAC PANEL #10 10/28/2020 Future Test Test Name Order Date COLONOSCOPY 10/28/2020 Next Appt Details Provider Name:Cristo Sims , 06/26/2025 10:40:00 AM, [address] [place] [address] , [place], [place], [id number], Insurance Providers Payer Name Payer Address Payer Phone Subscriber Number Group Number Insured Name Patient Relationship to Insured Coverage Start Date Coverage End Date MEDICARE OF [place] [address] [place] [address] [id number] MUSA CARTAGENA Self - patient is the insured MEDICAID OF [facility] [address] [place] [address] [phone] [id number] MUSA CARTAGENA Self - patient is the insured Medical (General) History Medical History History ICD Code Fibromyalgia Denies PA,DM,CVA,Lung disease,renal dise ase IBS diarrhea/constipation- n eg. colonoscopy 10/2020, including biopsies from colon and TI; neg. 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 screening colonoscopy 10/2020 Surgical History Surgery Date(Month/Year) Bilateral cataract-lens implants Breast implants Cholecystectomy Tonsillectomy
[2025-04-13 09:46] LABS: Alanine Aminotransferase 34 U/L (0-31); Albumin Level 4.6 g/dL (3.5-5.0); Alkaline Phosphatase 82 U/L (39-117); Anion Gap 12 (12-20); Aspartate Amino Transferase 14 U/L (5-31); Blood Urea Nitrogen 23 mg/dL (9-16); Calcium 9.0 mg/dL (8.4-10.2); Carbon Dioxide 27 mmol/L (22-29); Chloride 109 mmol/L (96-108); Cholesterol 212 mg/dL (<200); Estimated Glomerular Filt Rate > 60; HDL Cholesterol 58 mg/dL (>40); Potassium 3.9 mmol/L (3.3-5.1); Sodium 144 mmol/L (135-145); Total Protein 6.7 g/dL (6.5-8.0); Triglycerides 185 mg/dL (<150)
[2025-04-13 10:05] LABS: Thyroid Stimulating Hormone 1.26 uIU/mL (0.32-4.0)
== END 2025-04-13 08:33 | disposition home or self-care (01) ==
LOC: HO.LAB 08:32
PROVIDERS: Urology; PCP Internal Medicine; Visit Provider Internal Medicine
DX: E78.01 Familial hypercholesterolemia (principal); D25.9 Leiomyoma of uterus, unspecified; R31.9 Hematuria, unspecified; K59.00 Constipation, unspecified; Z68.25 Body mass index [BMI] 25.0-25.9, adult
CPT/HCPCS: 36415; 80053; 80061; 81003; 84443; 87086; 88112; 99202

== ENCOUNTER 2025-04-13 08:47 | Outpatient (AMB) | payer MEDICARE, MEDICAID, SELFPAY ==
--- NOTE | 2025-04-13 08:54 | A.OFFVIS_ITS ---
Intake Visit Reasons: ED f/u for Cystitis Intake Note: New patient presents today for initial visit for ED follow up for cystitis Urology Medication:Pyridium Blood Thinner:None Antibiotic Allergies:None Allergies gabapentin Allergy (Mild, Verified 04/13/25 08:56) Nausea atorvastatin Adverse Reaction (Mild, Verified 04/13/25 08:56) myalgia duloxetine Adverse Reaction (Mild, Verified 04/13/25 08:56) headache/lack of emotion Medication List - Last Reconciled 04/13/25 by Radha Sloan MD doxycycline hyclate 100 mg PO BID 7 days ezetimibe 10 mg PO DAILY multivitamin 1 tab PO DAILY naproxen sodium (Aleve) 220 mg PO BID PRN phenazopyridine (Pyridium) 200 mg PO TID 6 doses rosuvastatin 40 mg PO BEDTIME tramadol 50 mg PO DAILY PRN HPI Comments Details: 04/13/25--Hailey is a 65-year-old female who is here for evaluation due to recurrent UTIs. History of Present Illness - The patient is a 65-year-old female presenting with recurrent urinary tract infections. - She has experienced lower right quadrant pain. 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 - patient reports recent Urine culture at outside facility indicated beta- hemolytic streptococcus, states currently on penicillin. - The patient reports chills and malaise accompanying urinary symptoms. Results - CT abdomen and pelvis: 01/13/2025-- Bladder wall thickening noted Plan CT urogram, outpatient cystoscopy bladder biopsies, doxycycline 100 mg b.i.d. for 7 days, urine culture [facility] Medical History DJD (degenerative joint disease) Anorexia nervosa with bulimia PTSD (post-traumatic stress disorder) Depression Arthritis Migraine Cocaine abuse Back pain History of depression History of pernicious anemia Hyperlipidemia Bulimia Anorexia IBS (irritable bowel syndrome) Fibromyalgia Surgical History History of excision of mass (04/19/23) H/O colonoscopy Hx of cataract extraction Hx of breast implants, bilateral Hx of cholecystectomy Hx of tonsillectomy Social History Are you a primary primary care nurse practitioner to a significant other at home: No Do you presently have visiting nurse or other home services: No Patient Tobacco Use Status: Former Tobacco user Tobacco use type: Cigarette Cigarette Packs Per Day: 0 Cigarettes Per Day: 0 Years Smoked: 13 Second Hand Smoke Exposure: No 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al status: employed 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: Rt handed/[employer] Review of Systems Const All systems reviewed & are unremarkable except as noted in HPI and below Reports no additional complaints Eyes Reports no additional complaints ENT Reports no additional complaints Card Reports no additional complaints Resp Reports no additional complaints GI Reports no additional complaints Reports as per HPI Musc Reports no additional complaints Skin/Breast Reports system reviewed and no additional complaints, except as documented Neuro Reports no additional complaints Psych Reports no additional complaints Endo Reports no additional complaints Zain/Lymph Reports no additional complaints Aller/Immun Reports no additional complaints Physical Exam Const General: cooperative, healthy appearing and no acute distress Orientation/consciousness: patient oriented x3 HEENT Head: Yes normal to inspection, Yes normocephalic and Yes atraumatic Eyes Conjunctivae: conjunctivae normal Neck Neck: Yes normal visual inspection and Yes trachea midline Chest Chest palpation & inspection: normal inspection of the chest Resp Effort & Inspection: normal respiratory effort GI Other: Tenderness right lower quadrant Inspection: Yes normal to inspection Palpation (GI): Soft to palpation Neuro General: patient oriented x3 Psych Appearance: grossly normal Results Reviewed Results Reviewed: Date of Service: 01/13/25 CLINICAL HISTORY: RLQ PAIN CT abdomen and pelvis with contrast Comparison: None Findings: Mild emphysematous changes and scarring of the imaged lung bases. Mild fat deposition of the liver including adjacent to the falciform ligament. The gallbladder is surgically absent. Mild periportal edema. The adrenal glands are normal. Spleen is nonenlarged. Mild volume loss of the pancreas noted. No hydronephrosis. No suspicious features of the imaged cystic lesions in the kidneys accounting for motion artifacts. Mild prominence of the renal pelvis. Small mesenteric lymph nodes are likely reactive. No small bowel obstruction. Severe stool burden is present. Imaged appendix within normal limits (image 27 of series 7). No free intraperitoneal air. Mixed density of the uterus is nonspecific concerning for endometrial lesions. Subserosal fibroid also considered by CT with mass-effect measuring 3.5 x 2.7 x 2.2 cm. No adnexal soft tissue mass. Mild-moderate wall thickening of the urinary bladder is nonspecific and may reflect cystitis. Degenerative changes include the pubic symphysis, hips, SI joints, and spine, with multifocal facet arthropathy. Mild/minimal vertebral height losses appear old and accentuated by Schmorl's nodes. Facet arthropathy appears most pronounced in the lower lumbar spine, left worse than right. IMPRESSION: 1. Mild-moderate wall thickening of the urinary bladder. 2. Severe stool burden present. No small bowel obstruction. 3. Abnormal appearance of the uterus is nonspecific by CT. Please consider nonemergent characterization with ultrasound, if not already achieved. Assessment & Plan Assessment & Plan (1) Hematuria: Code(s): R31.9 - Hematuria, unspecified Category: Medical (2) Right lower quadrant pain: Code(s): R10.31 - Right lower quadrant pain Category: Medical (3) Bladder wall thickening: Code(s): N32.89 - Other specified disorders of bladder Category: Medical Plan CT urogram, outpatient cystoscopy bladder biopsies, doxycycline 100 mg twice a day for 7 days, urine culture Orders: Orders CT urogram Today N32.89 - Other specified disorders of bladder, R10.31 - Right lower quadrant pain, R31.9 - Hematuria, unspecified Medications: New doxycycline hyclate 100 mg PO BID 14 tabs 0RF 7 days Patient Instructions: The patient had an opportunity to ask questions regarding treatment plan. The patient expressed understanding and agreement with the above treatment plan. The patient is aware they should contact our office by phone for worsening of their current condition or the appearance of new symptoms. Compliance is encouraged with any medications and followup testing that is ordered. It is a privilege to be allowed the opportunity to participate in the urologic care of your patient. If you have any questions or concerns regarding treatment for the above conditions please do not hesitate to contact me. The office telephone contact is [phone]. This note is constructed in part using voice recognition software. While every effort has been made to ensure accuracy tree planter errors may have been included. Yours sincerely, Radha Sloan MD Scribe Plan - Not visible on output: Patient was informed and verbally consented to the use of an ambient scribe for clinic note documentation during this visit. Coding Level of Care Code New Pt Level 4 (66398) Diagnoses Hematuria R31.9 Right lower quadrant pain R10.31 Bladder wall thickening N32.89
== END 2025-04-13 09:47 | disposition home or self-care (01) ==
LOC: HO.HUSH 08:47
PROVIDERS: PCP Internal Medicine; Visit Provider Urology
DX: R31.9 Hematuria, unspecified (principal); R10.31 Right lower quadrant pain; N32.89 Other specified disorders of bladder; Z13.9 Encounter for screening, unspecified
CPT/HCPCS: 99204

== ENCOUNTER 2025-04-16 12:27 | Outpatient (AMB) | payer MEDICARE, MEDICAID, SELFPAY ==
--- NOTE | 2025-04-16 12:28 | A.OFFVIS_ITS ---
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 - Recent urine cytology and culture tests were negative - She has undergone uterine biopsy and polyp removal. - Awaiting further diagnostic procedures, including CT urogram Results - Urine cytology: Negative for atypical cells - Urine culture: No growth Plan - CT urogram pending. Patient is scheduled for hysterectomy. We will hold off on cystoscopy and bladder biopsies at this time. 04/13/25--Hailey is a 65-year-old female who is here for evaluation due to recurrent UTIs. - The patient is a 65-year-old female presenting with recurrent urinary tract infections. - She has experienced lower right quadrant pain. 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 - patient reports recent Urine culture at outside facility indicated beta-he molytic streptococcus, states currently on penicillin. - The patient reports chills and malaise accompanying urinary symptoms. Results - CT abdomen and pelvis: 01/13/2025-- Bladder wall thickening noted Plan CT urogram, outpatient cystoscopy bladder biopsies, doxycycline 100 mg b.i.d. for 7 days, urine culture [facility] Medical History DJD (degenerative joint disease) Anorexia nervosa with bulimia PTSD (post-traumatic stress disorder) Depression Arthritis Migraine Cocaine abuse Back pain History of depression History of pernicious anemia Hyperlipidemia Bulimia Anorexia IBS (irritable bowel syndrome) Fibromyalgia Surgical History History of excision of mass (04/19/23) H/O colonoscopy Hx of cataract extraction Hx of breast implants, bilateral Hx of cholecystectomy Hx of tonsillectomy Social History Are you a primary care nurse rn to a significant other at home: No Do you presently have visiting nurse or other home services: No Patient Tobacco Use Status: Former Tobacco user Tobacco use type: Cigarette Cigarette Packs Per Day: 0 Cigarettes Per Day: 0 Years Smoked: 13 Second Hand Smoke Exposure: No 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al status: employed 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: Rt handed/[employer] Review of Systems Const All systems reviewed & are unremarkable except as noted in HPI and below Reports no additional complaints Eyes Reports no additional complaints ENT Reports no additional complaints Card Reports no additional complaints Resp Reports no additional complaints GI Reports no additional complaints Reports as per HPI Musc Reports no additional complaints Skin/Breast Reports system reviewed and no additional complaints, except as documented Neuro Reports no additional complaints Psych Reports no additional complaints Endo Reports no additional complaints Zain/Lymph Reports no additional complaints Aller/Immun Reports no additional complaints Telehealth Telehealth Telehealth Platform: Telephone Location of provider rendering services: practice address Location of patient: address on file Patient Identification confirmed using: Name, : Yes Telehealth method: voice only Patient verbally consented to treatment: Yes Patient verbally consented to billing insurance company: Yes Patient informed of any privacy concerns related to visit: Yes Minutes spent on Phone/Video with Pt.: 14 Assessment & Plan Assessment & Plan (1) Hematuria: Code(s): R31.9 - Hematuria, unspecified Category: Medical (2) Right lower quadrant pain: Code(s): R10.31 - Right lower quadrant pain Category: Medical (3) Bladder wall thickening: Code(s): N32.89 - Other specified disorders of bladder Category: Medical Plan Plan - CT urogram pending. Patient is scheduled for hysterectomy. We will hold off on cystoscopy and bladder biopsies at this time. Patient Instructions: The patient had an opportunity to ask questions regarding treatment plan. The patient expressed understanding and agreement with the above treatment plan. The patient is aware they should contact our office by phone for worsening of their current condition or the appearance of new symptoms. Compliance is encouraged with any medications and followup testing that is ordered. It is a privilege to be allowed the opportunity to participate in the urologic care of your patient. If you have any questions or concerns regarding treatment for the above conditions please do not hesitate to contact me. The office telephone contact is [phone]. This note is constructed in part using voice recognition software. While every effort has been made to ensure accuracy music autographer errors may have been included. Yours sincerely, Radha Sloan MD Scribe Plan - Not visible on output: Patient was informed and verbally consented to the use of an ambient scribe for clinic note documentation during this visit. Coding Level of Care Code Tele Est Pt Level 3 (72967) Diagnoses Hematuria R31.9 Right lower quadrant pain R10.31 Bladder wall thickening N32.89
--- OUTSIDE RECORDS SUMMARY | 2025-04-16 12:51 | XMS_ITS | Patient Health Record ---
Author Organization [facility] Address [address] [place] [address] Care Team Providers Care Supervisor Paste Mixing Name Role Phone Arislizy Berta Primary Care Provider UnavailCristo Alonzo Unavailable [phone] Allergies No Known Allergies Reason For Referral [...] Status Risk Notes Problem Irritable bowel syndrome (91395530) Irritable bowel syndrome (K58.9) Active confirmed Problem Screening for malignant neoplasm of colon (648209027) Encounter for screening for malignant neoplasm of colon (Z12.11) Active confirmed Problem Constipation (40475675) Constipation (K59.00) Active confirmed Problem Diarrhea (84097072) Diarrhea (R19.7) Active confirmed Problem Heartburn (10920569) Heartburn (R12) Active confirmed Problem Early satiety (354566855) Early satiety (R68.81) Active confirmed Problem Gastroesophageal reflux disease (766024712) GERD (gastroesophage al reflux disease) (K21.9) Active confirmed Vital Signs Temperature 97.1 degrees Fahrenheit 04/03/2025 Blood pressure diastolic 01 mm Hg 04/03/2025 Height 66 in 04/03/2025 Blood pressure systolic 001 mm Hg 04/03/2025 Weight 157.4 lbs 04/03/2025 BMI 25.4 kg/m2 04/03/2025 Procedures Procedure Date Ordered Date Performed Result Body Sit e UPPER GI ENDOSCOPY 04/03/2025 N/A Encounters Encounter Location Date Provider Diagnosis [facility] [address] [place] [id number] 04/03/2025 Cristo Sims Early satiety R68.81 ; GERD (gastroesophageal reflux disease) K21.9 ; Heartburn R12 and Constipation K59.00 [facility] [address] [place] [phone] 02/24/2025 Cristo Sims Assessments Encounter Date Diagnosis [...] Provider Name:Cristo Sims , 06/26/2025 10:40:00 AM, [address] [place] [address] , [place], [place], [id number], Insurance Providers Payer Name Payer Address Payer Phone Subscriber Number Group Number Insured Name Patient Relationship to Insured Coverage Start Date Coverage End Date MEDICARE OF [place] [address] [place] [id number] MUSA CARTAGENA Self - patient is the insured MEDICAID OF [facility] [address] [place] [address] [id number] MUSA CARTAGENA Self - patient is the insured Medical (General) History Medical History History ICD Code Fibromyalgia Denies NV,DM,CVA,Lung disease,renal dise ase IBS diarrhea/constipation- n eg. colonoscopy 10/2020, including biopsies from colon and TI; neg. 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 screening colonoscopy 10/2020 Surgical History Surgery Date(Month/Year) Bilateral cataract-lens implants Breast implants Cholecystectomy Tonsillectomy
--- OUTSIDE RECORDS SUMMARY | 2025-04-16 12:51 | XMS_ITS | Clinical Summary ---
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 Bolano clarification of case 03/06/2025 1:30 PM EDT Office Visit [facility] [address] [place] [address] Wilmer Malagon DDS Complete edentulism, unspecified edentulism class (Primary Dx) 02/06/2025 3:30 PM EDT Office Visit [facility] [address] [place] [address] Wilmer Malagon DDS Complete edentulism, unspecified edentulism [...] Description 05/01/2025 3:30 PM EDT Office Visit [facility] [address] [place], [place] [phone] Wilmer Malagon DDS [address] [place] [address] Health Maintenance Due Date Last Done Comments [...] Most Recently Relevant to Health Maintenance [facility] [place] [id number]
== END 2025-04-16 14:04 | disposition home or self-care (01) ==
LOC: HO.HUSH 12:27
PROVIDERS: PCP Internal Medicine; Visit Provider Urology
DX: R31.9 Hematuria, unspecified (principal); R10.31 Right lower quadrant pain; N32.89 Other specified disorders of bladder
CPT/HCPCS: 99213

== ENCOUNTER 2025-06-17 15:22 | Outpatient (REF) | payer MEDICARE, MEDICAID, SELFPAY ==
--- OUTSIDE RECORDS SUMMARY | 2025-03-26 06:40 | XMS_ITS ---
Author Organization [facility] Address [address] [place] [phone] Care Team Providers Care Torch Straightener Name Role Phone Berta Bland Primary Care Provider Unavailab Cristo Paez Unavailable [phone] REASON FOR VISIT DYSPHAGIA Encounters Encounter Location Date Provider Diagnosis [facility] [address] [place] [phone] 03/26/2025 Cristo Sims Plan Of Treatment Next Appt Details Provider Name:Cristo Sims , 06/26/2025 10:40:00 AM, [address] [place] [address] , [place], [place], [phone], Progress Notes * KHURRAM ARZATEOB: (65 yo F)Acc No.[id number]:03/26/2025 Progress Notes Patient: MUSA MAN Provider: Chel Sims MD :1960 A ge:64 Y S ex:Female Date:03/26/2025 Address:[address] [place] [address] [id number] Pcp:Berta Bland Subjective: * Chief Complaints: * 1 . DYSPHAGIA. * Medical History: Objective: * Vitals: Assessment: Plan: * Treatment: * * The named appointment provid er may or may not be the originator of this progress note, and it is not deemed complete until electronically signed by the appointment provider. Sign off status: Pending * Provider: Chel Sims MD Date: 03/26/2025 Generated for Silas astudillo/Clary/eTransmitting on: 0 06/17/2025 05:48 PM EDT
--- NOTE | ~2025-06-17 | MM_ITS ---
EXAMINATION: MM SCREENING DIGITAL BREAST TOMOSYNTHESIS, BILATERAL CLINICAL INFORMATION: Screening. Asymptomatic. COMPARISON: Comparison made to multiple prior, most recent June 17, 2025, and most remote March 02, 2020. TECHNIQUE: Digital breast tomosynthesis is performed in mediolateral oblique and craniocaudal views along with computer-aided detection (CAD). Synthesized 2D images are generated from the tomosynthesis. FINDINGS: BREAST COMPOSITION: There are scattered areas of fibroglandular density. RIGHT BREAST: Retroglandular implant is ruptured and calcified, unchanged from multiple priors. No significant masses, suspicious calcifications or other abnormalities are seen. LEFT BREAST: Intact retroglandular saline implant. No significant masses, suspicious calcifications or other abnormalities are seen. MM/MM tomosynthesis screen imp BI IMPRESSION: BILATERAL BREASTS: Benign, no mammographic evidence of malignancy. Normal interval follow-up is recommended in 12 months. ASSESSMENT: BI-RADS: Category 2: Benign RECOMMENDATION: Routine annual mammography screening. FOLLOW-UP: 1 year F/U This examination should not preclude the clinical evaluation of a suspicious palpable abnormality. This patient's information was entered into a reminder system with a target due date for their next mammogram. Electronically signed by: Moshe Nava MD 06/19/2025 07:20 PM EDT
--- OUTSIDE RECORDS SUMMARY | 2025-06-17 17:48 | XMS_ITS | Patient Health Record ---
Author Organization [facility] Address [address] [place] [address] Care Team Providers Care Sap Portal Developer Name Role Phone Arislizy Berta Primary Care Provider UnavailCristo Alonzo Unavailable [phone] Allergies No Known Allergies Reason For Referral [...] Status Risk Notes Problem Irritable bowel syndrome (74708168) Irritable bowel syndrome (K58.9) Active confirmed Problem Screening for malignant neoplasm of colon (278022635) Encounter for screening for malignant neoplasm of colon (Z12.11) Active confirmed Problem Constipation (11217903) Constipation (K59.00) Active confirmed Problem Diarrhea (26810315) Diarrhea (R19.7) Active confirmed Problem Heartburn (37689784) Heartburn (R12) Active confirmed Problem Early satiety (715786360) Early satiety (R68.81) Active confirmed Problem Gastroesophageal reflux disease (182228929) GERD (gastroesophage al reflux disease) (K21.9) Active confirmed Vital Signs Temperature 97.1 degrees Fahrenheit 04/03/2025 Blood pressure diastolic 01 mm Hg 04/03/2025 Height 66 in 04/03/2025 Blood pressure systolic 001 mm Hg 04/03/2025 Weight 157.4 lbs 04/03/2025 BMI 25.4 kg/m2 04/03/2025 Procedures Procedure Date Ordered Date Performed Result Body Sit e UPPER GI ENDOSCOPY 04/03/2025 N/A Encounters Encounter Location Date Provider Diagnosis [facility] [address] [place] [phone] 04/03/2025 Cristo Sims Early satiety R68.81 ; GERD (gastroesophageal reflux disease) K21.9 ; Heartburn R12 and Constipation K59.00 [facility] [address] [place] [phone] 04/29/2025 Cristo Sims [facility] [address] [place] [phone] 02/24/2025 Cristo Sims Assessments Encounter Date Diagnosis [...] Provider Name:Cristo Sims , 06/26/2025 10:40:00 AM, [address] [place] [address] , [place], [place], [id number], Insurance Providers Payer Name Payer Address Payer Phone Subscriber Number Group Number Insured Name Patient Relationship to Insured Coverage Start Date Coverage End Date MEDICARE OF [place] [address] [place] [address] [id number] MUSA CARTAGENA Self - patient is the insured MEDICAID OF [facility] [address] [place] [address] [id number] MUSA CARTAGENA Self - patient is the insured Medical (General) History Medical History History ICD Code Fibromyalgia Denies RI,DM,CVA,Lung disease,renal dise ase IBS diarrhea/constipation- n eg. colonoscopy 10/2020, including biopsies from colon and TI; neg. 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 screening colonoscopy 10/2020 Surgical History Surgery Date(Month/Year) Bilateral cataract-lens implants Breast implants Cholecystectomy Tonsillectomy
--- OUTSIDE RECORDS SUMMARY | 2025-06-17 17:48 | XMS_ITS | Clinical Summary ---
Author Organization [facility] Address [address] [place] [address] [address] [place] [address] Care Team Providers Care Candy Supervisor Name Role Phone Unavailable Primary Care Provider Unavailabl e Allergies No known active allergies Medications No known medications Active Problems Problem Noted Date Diagnosed Date Severe atrophy of mandible 01/05/2025 Complete edentulism 05/21/2024 Encounters Date Type Department Care Team Description 04/27/2025 1:15 PM EDT Office Visit [facility] [address] [place] [address] Wilmer Malagon DDS Complete edentulism, unspecified edentulism class (Primary Dx) 04/13/2025 8:00 AM EDT Office Visit [facility] [address] [place] [address] Wilmer Malagon DDS Complete edentulism, unspecified edentulism class (Primary Dx) 03/20/2025 8:00 AM EDT Office Visit [facility] [address] [place] [address] Wilmer Malagon DDS Complete edentulism, unspecified edentulism [...] 2010 Zoster Vaccines (1 of 2) 2010 Dental Oral Exam 11/22/2024 05/21/2024, 09/22/2016, 04/27/2009 COVID-19 Vaccine ( - 2023-2 5 season) 2025 Influenza Vaccine (#1) 2025 Tobacco Screening 04/27/2026 [...] TRY IN Routine 03/20/2025 8:00 AM EDT PANORAMIC RADIOGRAPHIC IMAGE Routine 05/21/2024 9:30 AM EDT PERIODIC ORAL EVALUATION - ESTABLISHED PATIENT Routine 05/21/2024 9:30 AM EDT INTRAORAL - COMPLETE SERIES OF RADIOGRAPHIC IMAGES Routine 03/31/2009 12:00 AM EDT from Last 3 Months or Most Recently Relevant [place] [id number] [facility] MEDICAID [place] [address]
--- OUTSIDE RECORDS SUMMARY | 2025-06-17 17:48 | XMS_ITS | Encounter Summary ---
Author Organization [facility] Address [address] [facility] 7 [place] [address] Care Team Providers Care Craft Worker Name Role Phone Unavailable Primary Care Provider Unavailabl e Reason for Visit * Reason Onset Date Comments Dr. Malagon clarification of case 03/09/2025 Encounter Details Date Type Department Care Team ([facility] st Contact Info) Description 03/09/[address] [facility] [address] [place] [address] Wilmer Malagon DDS [address] [place], [place] [phone] Dr. Malagon clarification of case Social History Tobacco Use Types Packs/Day Years Used Date Smoking Tobacco: Former Cigarettes Passive Smoke Exposure: Never Smokeless Tobacco: Former Alcohol Use Standard Drinks/Week Comments Defer 0 (1 standard drink = 0.6 oz pur e alcohol) Comments Unknown Sex and Gender Information Value Date Recorded Sex Assigned at Female 07/24/2022 10:23 AM EDT Legal Sex Female 10:23 AM EDT Gender Identity Female 05/20/2024 2:14 PM EDT Sexual Orientation Straight 05/20/2024 2: 14 PM EDT documented as of this encounter Miscellaneous Notes * Telephone Encounter - Linda Bourgeois - 03/09/2025 8:59 AM EDT Message for Dr. Manas Yarbrough from [employer] [facility] called in. They received case after 5pm on Sunday. They state they believe it is to complete however lab slip states special instructions however no directions given. Also requestfor it to be in office for 03/13 but they need 5 business days as weekends do not count. They can have it ready for 03/16. Please reach out with questions to [phone] documented in this encounter Plan of Treatment Not on file documented as of this encounter Visit Diagnoses Not on filedocumented in this encounter
== END 2025-06-17 15:23 | disposition home or self-care (01) ==
LOC: HO.MAMMO 15:22
PROVIDERS: PCP Internal Medicine; Visit Provider Internal Medicine
DX: Z12.31 Encounter for screening mammogram for malignant neoplasm of breast (principal)
CPT/HCPCS: 77063; 77067

== ENCOUNTER → 2025-06-17 15:45 | Outpatient (BNV) | payer MEDICARE, MEDICAID, SELFPAY | PROVIDERS: PCP Internal Medicine; Visit Provider Radiology Body Imaging | DX: Z12.31 Encounter for screening mammogram for malignant neoplasm of breast (principal) | CPT/HCPCS: 77063; 77067 ==

== ENCOUNTER 2025-06-26 08:16 | Day surgery (SDC) | payer MEDICARE, MEDICAID, SELFPAY ==
--- OUTSIDE RECORDS SUMMARY | 2025-05-15 07:50 | XMS_ITS | Clinical Summary ---
Author Organization 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 Complete edentulism 05/21/2024 Encounters Date Type Department Care Team Description 04/27/2025 1:15 PM EDT Office Visit [facility] [address] [place] [address] Wilmer Malagon DDS Complete edentulism, unspecified edentulism class (Primary Dx) 04/13/2025 8:00 AM EDT Office Visit [facility] [address] [place] [address] Wilmer Malagon DDS Complete edentulism, unspecified edentulism class (Primary Dx) 03/20/2025 8:00 AM EDT Office Visit [facility] [address] [place] [address] Wilmer Malagon DDS Complete edentulism, unspecified edentulism class (Primary Dx); Severe atrophy of mandible 03/09/2025 Telephone [facility] [address] [place] [address] Bolano clarification of case 03/06/2025 1:30 PM EDT Office Visit [facility] [address] [place] [address] Wilmer Malagon DDS Complete edentulism, unspecified edentulism [...] Sign Reading Time Taken Comments Blood Pressure 120/70 04/27/2025 1:33 PM EDT Pulse 70 04/27/2025 1:33 PM EDT Temperature - - Respiratory Rate - - Oxygen Saturation - - Inhaled Oxygen Concentration - - Weight - - Height - - Body Mass Index - - Plan of Treatment Health Maintenance Due Date Last Done Comments [...] 04/27/2009 Influenza Vaccine (#1) 2025 Tobacco Screening 04/27/2026 04/27/2025 Dental X-Ray: Full Mouth 05/22/2027 024, 03/31/2009 [...] Procedure Name Priority Date/Time Associated Diagnosis Comments CASE PRESENTATION, DETAILED AND EXTENSIVE TREATMENT PLANNING Routine 04/27/2025 1:15 PM EDT Bassem COMPLETE DENTURE - MANDIBULAR Routine 04/27/2025 1:15 PM EDT Max COMPLETE DENTURE - MAXILLARY Routine 04/27/2025 1:15 PM EDT WAX TRY IN Routine 04/13/2025 8:00 AM EDT WAX TRY IN Routine 03/20/2025 8:00 AM EDT WAX TRY IN Routine 03/06/2025 1:30 PM EDT PANORAMIC RADIOGRAPHIC IMAGE Routine 05/21/2024 9:30 AM EDT PERIODIC ORAL EVALUATION - ESTABLISHED PATIENT Routine 05/21/2024 9:30 AM EDT INTRAORAL - COMPLETE SERIES OF RADIOGRAPHIC IMAGES Routine 03/31/2009 12:00 AM EDT from Last 3 Months or Most Recently Relevant to Health Maintenance Insurance [facility] ST[place]
--- OUTSIDE RECORDS SUMMARY | 2025-05-15 07:51 | XMS_ITS | Patient Health Record ---
Author Organization [facility] Address [address] [place] [address] Care Team Providers Care Commercial Instructor Supervisor Name Role Phone Arislizy Berta Primary Care Provider UnavailCristo Alonzo Unavailable [phone] Allergies No Known Allergies Reason For Referral [...] Notes Tobacco use: Former smoker Section Notes: Rare smoker; no sig alcohol Nonsmoker; no sig alcohol Problems Problem Type SNOMED Code ICD Code Onset Dates Problem Status W/U Status Risk Notes Problem Irritable bowel syndrome (57421352) Irritable bowel syndrome (K58.9) Active confirmed Problem Screening for malignant neoplasm of colon (339086362) Encounter for screening for malignant neoplasm of colon (Z12.11) Active confirmed Problem Constipation (57091855) Constipation (K59.00) Active confirmed Problem Diarrhea (80854554) Diarrhea (R19.7) Active confirmed Problem Heartburn (49512735) Heartburn (R12) Active confirmed Problem Early satiety (874968805) Early satiety (R68.81) Active confirmed Problem Gastroesophageal reflux disease (484578489) GERD (gastroesophage al reflux disease) (K21.9) Active confirmed Vital Signs Temperature 97.1 degrees Fahrenheit 04/03/2025 Blood pressure diastolic 01 mm Hg 04/03/2025 Height 66 in 04/03/2025 Blood pressure systolic 001 mm Hg 04/03/2025 Weight 157.4 lbs 04/03/2025 BMI 25.4 kg/m2 04/03/2025 Procedures Procedure Date Ordered Date Performed Result Body Sit e UPPER GI ENDOSCOPY 04/03/2025 N/A Encounters Encounter Location Date Provider Diagnosis [facility] [address] [place] [phone] 04/03/2025 Cristo Sims Early satiety R68.81 ; GERD (gastroesophageal reflux disease) K21.9 ; Heartburn R12 and Constipation K59.00 [facility] [address] [place] [phone] 04/29/2025 Cristo Sims [facility] [address] [place] [phone] 02/24/2025 Cristo Sims Assessments Encounter Date Diagnosis (ICD Code) Assessment Notes Treatment Notes Treatment Clinical Notes Section Notes 04/03/2025 Early satiety (ICD-10 - R68.81) Overall, Musa appears well. We did discuss her longstanding [...] something such as Linzess. I did advise her to begin using the prescription for the [...] K21.9) Start using the daily omeprazole Overall, Musa appears well. We did discuss her longstanding [...] something such as Linzess. I did advise her to begin using the prescription for the [...] progress. 04/03/2025 Heartburn (ICD-10 - R12) Overall, Musa appears well. We did discuss her longstanding [...] something such as Linzess. I did advise her to begin using the prescription for the [...] 04/03/2025 Constipation (ICD-10 - K59.00) For the constipation: Begin using Miralax powder once or twice every day, and 2 Metamucil fiber pills once or twice a day with a lot of fluids Overall, Musa appears well. We did discuss her longstanding [...] something such as Linzess. I did advise her to begin using the prescription for the [...] Provider Name:Cristo Sims , 06/26/2025 10:40:00 AM, [address] [place] [address] , [place], [place], [id number], Insurance Providers Payer Name Payer Address Payer Phone Subscriber Number Group Number Insured Name Patient Relationship to Insured Coverage Start Date Coverage End Date MEDICARE OF [place] [address] [place] [address] [id number] MUSA CARTAGENA Self - patient is the insured MEDICAID OF [facility] [address] [place] [phone] [id number] MUSA CARTAGENA Self - patient is the insured Medical (General) History Medical History History ICD Code Fibromyalgia Denies AK,DM,CVA,Lung disease,renal dise ase IBS diarrhea/constipation- n eg. colonoscopy 10/2020, including biopsies from colon and TI; neg. 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 screening colonoscopy 10/2020 Surgical History Surgery Date(Month/Year) Bilateral cataract-lens implants Breast implants Cholecystectomy Tonsillectomy
[2025-06-24 14:33] VITALS: BMI 25.3
--- NOTE | 2025-06-25 10:04 | HO.ANESPROP2 ---
Documented by User: Simin Adorno NP 06/25/25 10:05 HPI - Anesthesia Eval Consult details Narrative: 65yo F for Upper Endoscopy PMFSH Active Problems Active Problems: All Active Problems Bladder wall thickening (Acute) Right lower quadrant pain (Acute) Hematuria (Acute) Carpal tunnel syndrome of right wrist (Acute) Left carpal tunnel syndrome (Acute) Lipoma of left shoulder (Acute) Intramuscular lipoma (Acute) Tear of left deltoid muscle (Acute) Patella-femoral syndrome (Acute) IBS (irritable bowel syndrome) (Acute) Fibromyalgia (Acute) History of pernicious anemia (Acute) Past Medical History Medical History DJD (degenerative joint disease) Anorexia nervosa with bulimia PTSD (post-traumatic stress disorder) Depression Arthritis Migraine Cocaine abuse Back pain History of depression History of pernicious anemia Hyperlipidemia Bulimia Anorexia IBS (irritable bowel syndrome) Fibromyalgia Family History Family history of problems with anesthesia: No Surgical History Surgical History History of hysterectomy Hx of left cataract extraction History of excision of mass (04/19/23) H/O colonoscopy Hx of cataract extraction Hx of breast implants, bilateral Hx of cholecystectomy Hx of tonsillectomy History of Problems with Anesthesia: No Social History Social History Are you a primary director of career resources to a significant other at home: No Do you presently have visiting nurse or other home services: No Patient Tobacco Use Status: Former Tobacco user Tobacco use type: Cigarette Cigarette Packs Per Day: 0 Cigarettes Per Day: 0 Years Smoked: 13 Second Hand Smoke Exposure: No Use of substances other than those prescribed or required for medical reasons: No Have you been hit, kicked, punched, or otherwise hurt by someone within the past year? If so, by whom?: No Are you DNR?: No Advance Directives: No Advance Directives Information Provided: Yes Patient : No 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al status: employed 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: [employer] Meds Allergies Allergy/AdvReac Type Severity Reaction Status Date / Time gabapentin Allergy Mild Nausea Verified 06/26/25 08:37 atorvastatin AdvReac Mild myalgia Verified 06/26/25 08:37 duloxetine AdvReac Mild headache/lack Verified 06/26/25 08:37 of emotion Home Medications ?Medication ?Instructions ?Recorded ?Confirmed ?Last Taken ?Type multivitamin 1 tab PO DAILY 11/05/20 06/24/25 Unknown History ezetimibe 10 mg tablet 10 mg PO DAILY 09/26/23 06/24/25 Unknown History rosuvastatin 40 mg tablet 40 mg PO BEDTIME 05/14/24 06/24/25 Unknown History acetaminophen 325 mg tablet 325 mg PO Q6-8H PRN Pain 06/24/25 06/24/25 Unknown History coQ10 (ubiquinol) 200 mg capsule 200 mg PO DAILY 06/24/25 06/24/25 Unknown History naproxen 500 mg tablet 500 mg PO BID PRN headache 06/24/25 06/24/25 Unknown History Exam Height,Weight and Vital Signs: Height 5 ft 6 in Weight 71.214 kg Assessment and Plan Assessment Anesthesia Assessment: Chart Reviewed Final Anesthetic Review Family History of Problems with Anesthesia: No History of Problems with Anesthesia: No Documented by User: Randa Amezquita MD 06/26/25 09:34 PMFSH Past Medical History Medical History DJD (degenerative joint disease) Anorexia nervosa with bulimia PTSD (post-traumatic stress disorder) Depression Arthritis Migraine Cocaine abuse Back pain History of depression History of pernicious anemia Hyperlipidemia Bulimia Anorexia IBS (irritable bowel syndrome) Fibromyalgia Surgical History Surgical History History of hysterectomy Hx of left cataract extraction History of excision of mass (04/19/23) H/O colonoscopy Hx of cataract extraction Hx of breast implants, bilateral Hx of cholecystectomy Hx of tonsillectomy Social History Social History Are you a primary director of career resources to a significant other at home: No Do you presently have visiting nurse or other home services: No Patient Tobacco Use Status: Former Tobacco user Tobacco use type: Cigarette Cigarette Packs Per Day: 0 Cigarettes Per Day: 0 Years Smoked: 13 Second Hand Smoke Exposure: No Use of substances other than those prescribed or required for medical reasons: No Have you been hit, kicked, punched, or otherwise hurt by someone within the past year? If so, by whom?: No Are you DNR?: No Advance Directives: No Advance Directives Information Provided: Yes Patient : No 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al status: employed 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: [employer] Meds Allergies Allergy/AdvReac Type Severity Reaction Status Date / Time gabapentin Allergy Mild Nausea Verified 06/26/25 08:37 atorvastatin AdvReac Mild myalgia Verified 06/26/25 08:37 duloxetine AdvReac Mild headache/lack Verified 06/26/25 08:37 of emotion Home Medications ?Medication ?Instructions ?Recorded ?Confirmed ?Last Taken ?Type multivitamin 1 tab PO DAILY 11/05/20 06/24/25 Unknown History ezetimibe 10 mg tablet 10 mg PO DAILY 09/26/23 06/24/25 Unknown History rosuvastatin 40 mg tablet 40 mg PO BEDTIME 05/14/24 06/24/25 Unknown History acetaminophen 325 mg tablet 325 mg PO Q6-8H PRN Pain 06/24/25 06/24/25 Unknown History coQ10 (ubiquinol) 200 mg capsule 200 mg PO DAILY 06/24/25 06/24/25 Unknown History naproxen 500 mg tablet 500 mg PO BID PRN headache 06/24/25 06/24/25 Unknown History Exam Airway Mallampati Class: II (edentulous) Neck ROM: Full Denture: Upper and Lower Loose/Missing/Broken Teeth: Yes, Upper and Lower Heart: RRR Lungs: CTA Assessment and Plan Assessment Anesthesia Assessment: Anesthesia Plan Discussed Final Anesthetic Review NPO: Yes ASA Class: II Final Preanesthetic Review: Meds/Allgs Chart Reviewed, Consent Obtained/Reviewed and Anes Risks/Benef Reviewed Patient Risk: Low Procedure Risk: Intermediate Anesthetic Plan Anesthetic Plan: MAC: Disposition: Standard PACU
[2025-06-26 08:42] VITALS: BMI 24.9
[2025-06-26] MEDS: Lactated Ringers 1,000 ML 100 ML IVCONT (08:54)
[2025-06-26 11:20] VITALS: BP 110/71; PULSE 76; RESP 16; TEMP 36.1; O2SAT 97
[2025-06-26 11:35] VITALS: BP 126/81; PULSE 73; RESP 18; TEMP 36.7; O2SAT 97
--- NOTE | 2025-06-26 11:46 | OP_ITS ---
DATE OF SERVICE: 06/26/2025 SURGEON: Cristo Sims MD INDICATIONS: The patient presents for evaluation of gastroesophageal reflux and abnormal CT scan of esophagus. Full consent has been obtained from her for this, including risks of bleeding and perforation. PREOPERATIVE DIAGNOSIS: POSTOPERATIVE DIAGNOSIS: PROCEDURE PERFORMED: Esophagogastroduodenoscopy with biopsies. ESTIMATED BLOOD LOSS: COMPLICATIONS: ANESTHESIA: Monitored anesthesia care. ASSISTANTS: SPECIMENS: PREOPERATIVE DIAGNOSES: Gastroesophageal reflux and abnormal CT scan of esophagus. POSTOPERATIVE DIAGNOSES: Gastroesophageal reflux, abnormal CT scan of esophagus, hiatal hernia, erosive gastritis. DESCRIPTION OF PROCEDURE: The patient was placed in the left lateral decubitus position. The Olympus video gastroscope was passed in the posterior oropharynx and upper esophagus under direct vision. The scope was passed slowly to the distal esophagus. The gastroesophageal junction appeared at 35 cm. There was some slight irregularity, but no definitive evidence of Ayala's mucosa nor esophagitis. There was no evidence of any stricture nor ring. With insufflation of air, the EG junction did open widely. The scope easily entered the stomach. There was a small hiatal hernia. The scope was advanced to the pylorus and the duodenum was cannulated to the descending portion . The duodenum including the bulb appeared normal without mass or ulceration. The scope was withdrawn back to the stomach. The gastric antrum and body had some areas of edema, erosions, and erythema. There was good peristalsis. Biopsies were obtained from the gastric antrum. The scope was retroflexed visualizing the proximal stomach carefully which appeared normal, without sign of mass or ulceration. The scope was straightened and withdrawn back into the esophagus. Biopsies were obtained at the EG junction at 35 cm. Proximal to this, the esophageal mucosa appeared normal. The scope was withdrawn from the patient. She tolerated the procedure well and was returned to recovery area in stable condition. IMPRESSION: 1. Hiatal hernia, gastroesophageal reflux. 2. Erosive gastritis. PLAN: The results of the biopsies will be checked. She has been advised to avoid all aspirin and NSAIDs for at least a week or 2, but preferably terminal block assembler. She does have a prescription for omeprazole at home and has not yet been using that. I did advise her to begin that daily. If H pylori is present in the gastric biopsies, I would recommend that we treat that at some point as well. She will be seen in followup as needed. MD CARLOS Tay/RHODA / [id number] RUFINO
--- NOTE | 2025-06-26 12:43 | PM.OP ---
Brief Operative Note Date of Service: 06/26/25 Pre-op diagnosis: GERD, Abnormal CT of esophagus Post-op diagnosis: other (Hiatal hernia, Erosive gastritis) Procedure: EGD with biopsies Surgeon: Cristo Sims MD Anesthesia: MAC Was an Pattern Shop Supervisor used for this Procedure?: No Estimated blood loss (mL): 2.0 Pathology: other (A. Gastric antrum B. EG Junction at 35cm) Condition: stable Disposition: PACU
== END 2025-06-26 12:04 | disposition home or self-care (01) ==
PROVIDERS: PCP Internal Medicine; Visit Provider Internal Medicine
PROC: 0DJ08ZZ Inspection of Upper Intestinal Tract, Via Natural or Artificial Opening Endoscopic (ICD-10-PCS; CPT 43235; principal; 2025-06-26 09:40)
DX: K21.9 Gastro-esophageal reflux disease without esophagitis (principal); R93.3 Abnormal findings on diagnostic imaging of other parts of digestive tract; K29.60 Other gastritis without bleeding; K20.90 Esophagitis, unspecified without bleeding; K44.9 Diaphragmatic hernia without obstruction or gangrene
CPT/HCPCS: 43239; 88305; 88313; 88342; J2704

== ENCOUNTER 2025-07-20 09:27 | Outpatient (AMB) | payer MEDICARE, MEDICAID, SELFPAY ==
--- OUTSIDE RECORDS SUMMARY | 2025-03-26 06:40 | XMS_ITS ---
Author Organization [facility] Address [address] [place] [id number] Care Team Providers Care Canvas Cutter Hand Name Role Phone Berta Bland Primary Care Provider Unavailab Cristo Paez [phone] REASON FOR VISIT DYSPHAGIA Encounters Encounter Location Date Provider Diagnosis [facility] [address] [place] [phone] 03/26/2025 Cristo Sims Plan Of Treatment No Information Progress Notes * KHURRAM ARZATEOB: (65 yo F)Acc No.[id number]:03/26/2025 Progress Notes Patient: MUSA MAN Provider: Chel Sims MD :1960 A ge:64 Y S ex:Female Date:03/26/2025 Address:[address] [place] [address] [id number] Pcp:Berta Bland Subjective: * Chief Complaints: * 1 . DYSPHAGIA. * Medical History: Objective: * Vitals: Assessment: Plan: * Treatment: * * The named appointment provid er may or may not be the originator of this progress note, and it is not deemed complete until electronically signed by the appointment provider. Sign off status: Pending * Provider: Chel Sims MD Date: 0 03/26/2025 Generated for Silas astudillo/Clary/eTransmitting on: 1 10:36 AM EDT
--- OUTSIDE RECORDS SUMMARY | 2025-06-26 05:40 | XMS_ITS ---
Author Organization [facility] Address [address] [place] [phone] Care Team Providers Care Armature Winder Name Role Phone Berta Bland Primary Care Provider Unavailab Cristo Paez Unavailable [phone] REASON FOR VISIT gerd,early satiety Encounters Encounter Location Date Provider Diagnosis [facility] [address] [place], [place] [id number] 06/26/2025 Cristo Sims Plan Of Treatment No Information Progress Notes * KHURRAM ARZATEOB: (65 yo F)Acc No.[id number]:06/26/2025 EGD/MAC Patient: MUSA MAN Provider: Chel Sims MD :1960 A ge:65 Y S ex:Female Date:06/26/2025 Address:[address] [place] [address] [facility] Pcp:Berta Bland Subjective: * Chief Complaints: * 1 . Gerd,early satiety. * Medical History: Objective: * Vitals: Assessment: Plan: * Treatment: * * The named appointment provid er may or may not be the originator of this progress note, and it is not deemed complete until electronically signed by the appointment provider. Sign off status: Pending * Provider: Chel Sims MD Date: Generated for Silas astudillo/Clary/eTransmitting on: 10:37 AM EDT
--- NOTE | 2025-07-20 09:34 | A.OFFVIS_ITS ---
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 Feels very exhausted and like she may have another UTI. She was asking if labs and UA could be ordered. Has follow up with radiation oncologist and regular oncologist next month. Had endoscopy earlier this month, found to have hiatal hernia and gastritis, advised to stop naproxen. Pain and stiffness to lower back continue. Taking acetaminophen as needed during the day. Some trouble falling asleep at night due to pain and stiffness. Tramadol at bedtime helps, able to sleep and wakes with less stiffness in the morning. No falls. Not working at this time. Recurrent UTIs. Went to [facility] for abdominal pain in 12/2024, had CT of abd/pelvis in 12/2024 which showed mild-moderate wall thickening of urinary bladder, severe stool burden without small bowel obstruction and abnormal appearance of the uterus with subserosal fibroid with mass-effect measuring 3.5 x 2.7 x 2.2 cm. She was recommended to follow up with urology and COMPUTER SCIENCE INTERN. She had hospital follow up with PCP and ultrasound was ordered, not done yet. Tramadol?as needed helps with back pain. Pain is much worse without Tramadol. Severe pain and stiffness to low back. Has trouble getting up in the morning and falling asleep at night. Pain is worse with prolonged activity or when sitting/standing for extended period of pain. Spasms in mid-back along spine with some electrical sensations better with medication and also able to move better and sleep better when taking tramadol. Infrequently LBP may radiate down either leg and leg may have numbness/tingling, none recently. Completed 6 weeks of PT and chiropractor. Tried gabapentin and cyclobenzaprine, only took on rare occasion for severe pain as she did not like how medications made her feel. Saw hand surgeon for CTS, not interested in surgery at this time. Had numbness in first 4 fingers, pain in hands, L > R. 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 Hx of intermittent numbness/tingling to center of midback. Severe mid-back pain radiating around chest with spasms. Intermittent severe lower back pain with radiation down RLE at times. Sharp, shooting pains in left lateral neck that would go into head for few seconds in the past. Sensation of vice professional development director around neck and tingling paresthesia going from neck into scalp and on back like electrical currents. Hx of hypertension, fibromyalgia, depression, and anxiety. Was not able to tolerate duloxetine, muscle relaxer, or gabapentin as she was too tired. [facility] Medical History (Updated 07/20/25 @ 09:57 by Aretha Wu CNP) DJD (degenerative joint disease) Anorexia nervosa with bulimia PTSD (post-traumatic stress disorder) Depression Arthritis Migraine Cocaine abuse Back pain History of depression History of pernicious anemia Hyperlipidemia Bulimia Anorexia IBS (irritable bowel syndrome) Fibromyalgia Surgical History History of hysterectomy Hx of left cataract extraction History of excision of mass (04/19/23) H/O colonoscopy Hx of cataract extraction Hx of breast implants, bilateral Hx of cholecystectomy Hx of tonsillectomy Social History Are you a primary child caregiver private home to a significant other at home: No Do you presently have visiting nurse or other home services: No Patient Tobacco Use Status: Former Tobacco user Tobacco use type: Cigarette Cigarette Packs Per Day: 0 Cigarettes Per Day: 0 Years Smoked: 13 Second Hand Smoke Exposure: No 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al status: employed 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: [employer] Review of Systems Const Denies chills, Denies daytime sleepiness, Reports difficulty sleeping, Reports fatigue, Denies fever(s), Denies frequent falls, Denies headache(s), Denies increased appetite, Denies poor appetite, Denies snoring, Denies weakness, Denies weight gain and Denies weight loss Eyes Denies loss of vision ENT Denies vertigo, Denies dizziness, Denies headache(s) and Reports neck pain Card Denies chest pain at rest, Denies chest pain with activity, Denies syncope, Denies leg edema, Denies palpitations, Denies dyspnea and Denies dyspnea on exertion Resp Denies cough, Denies dyspnea, Denies dyspnea on exertion and Denies snoring GI Denies abdominal pain, Denies constipation, Denies heartburn, Denies diarrhea and Denies nausea Denies urinary frequency, Denies urinary incontinence and Denies urinary urgency Musc Denies abnormal gait, Reports back pain, Reports myalgias, Denies arthralgias, Reports neck pain, Reports numbness and Reports tingling Neuro Denies abnormal gait, Denies vertigo, Denies dizziness, Denies syncope, Denies frequent falls, Denies headache(s), Denies lack of coordination, Denies loss of vision, Denies memory loss, Reports numbness, Denies Other visual disturbances, Denies restless legs, Denies seizure-like activity, Reports tingling, Denies paresthesias, Denies tremor(s) and Denies weakness Psych Reports anxiety, Reports depression, Denies auditory hallucinations, Denies memory loss and Denies visual hallucinations Endo Reports fatigue and Denies palpitations Physical Exam Const Other: General Appearance:? normal, in no acute distress. Heart:? S1, S2 normal, no murmurs. Lungs:? clear anteriorly and posteriorly. Musculoskeletal:? normal. Extremities:? no edema. Psych:? alert, oriented, cognitive function intact, cooperative with exam. Neuro Other: Abnormal Neurological Findings:?5-/5 LUE weakness. 5-/5 R quadriceps. Plantars are equivocal Mental Status: alert and oriented X 3. Normal attention, orientation, memory, and affect. Cranial Nerves: Pupils are equal, round, and reactive to light. External ocular muscles are intact. Visual frias are full, no ptosis. Face is symmetrical, no facial weakness or droop. Facial sensations are normal. Tongue protrudes in midline. Palate elevates symmetrically. Shoulder shrugging is normal Motor Examination: As above. Sensory Exam: Normal light touch, temperature, pinprick, vibration, and joint- position sensations. Rhomberg sign is absent. Coordination: No ataxia. No titubation. Gait Exam: Within normal limits. Cerebellar Signs: [id number]-ur-[id number] is okay. Extrapyramidal System: No tremor, rigidity with normal facial expressions. No bradykinesia. No bradyphrenia. Normal arm swing and posture. No propulsion or retropulsion. Speech: Normal. Results Reviewed Results Reviewed: 05/2022 MRI C-spine: Multilevel discogenic degenerative changes and spondylosis, multilevel posterior disc-osteophyte complexes and shallow disc protrusions without cord impingement 04/03/23 NCV/EMG UE Mild to moderate bilateral Carpal tunnel syndrome. Significantly worse compared to the study done in 2021. Moderate axonal loss in the ulnar nerves bilaterally. Normal EMG in the left C5-T1 innervated muscles 10/2023 labs: ok 06/01/2024 MRI thoracic spine: Thoracic kyphosis and mild to moderate thoracic spondylosis. There is no severe central canal stenosis and there is no severe foraminal stenosis within the thoracic spine. 06/01/2024 MRI lumbar spine: At L4-L5, there is slight grade 1 degenerative anterolisthesis in the setting of advanced bilateral facet arthropathy. A right foraminal disc protrusion at this level contacts the exiting right L4 nerve root. There is a left lateral annular fissure at this level. No severe central canal stenosis and no severe foraminal stenosis within the lumbar spine. 12/2024 Abd/Pelvis CT at [facility]: 1. mild-moderate wall thickening of urinary bladder 2. severe stool burden present, no small bowel obstruction 3. abnormal appearance of the uterus is nonspecific by CT, consider nonemergenct characterization with ultrasound Assessment & Plan Assessment & Plan (1) Lumbar radiculopathy: Code(s): M54.16 - Radiculopathy, lumbar region Category: Medical Plan: Continue acetaminophen 325mg 2 tablets as needed q8h for pain #180 for 30 days. Continue tramadol 50mg 1 tablet as needed once a day for moderate-severe pain #20 for 30 days. Follow up in 6 months or sooner as needed. (2) Thoracic disc disease: Code(s): M51.9 - Unspecified thoracic, thoracolumbar and lumbosacral intervertebral disc disorder Category: Medical (3) Cervical spondylosis: Code(s): M47.812 - Spondylosis without myelopathy or radiculopathy, cervical region Category: Medical (4) Migraine: Code(s): G43.909 - Migraine, unspecified, not intractable, without status migrainosus Category: Medical Qualifiers: Intractability: not intractable Migraine type: unspecified Status migrainosus presence: without status migrainosus Qualified Code(s): G43.909 - Migraine, unspecified, not intractable, without status migrainosus (5) Bilateral carpal tunnel syndrome: Code(s): G56.03 - Carpal tunnel syndrome, bilateral upper limbs Category: Medical (6) Fatigue: Code(s): R53.83 - Other fatigue Category: Medical Qualifiers: Fatigue type: unspecified Qualified Code(s): R53.83 - Other fatigue Plan: She was complaining of fatigue and UTI symptoms - likely from radiation, however labs ordered r/o infectious process. Advised to contact specialists for new/worsening symptoms. (7) Urinary tract infection: Code(s): N39.0 - Urinary tract infection, site not specified Category: Medical Qualifiers: Hematuria presence: without hematuria Urinary tract infection type: site unspecified Qualified Code(s): N39.0 - Urinary tract infection, site not specified Plan Unable to tolerate gabapentin, cyclobenzaprine, duloxetine Orders: Orders Complete Blood Count Auto Diff Today R53.83 - Other fatigue UA ClnCatch+Micro w/rflx Cult Today N39.0 - Urinary tract infection, site not specified Medications: New tramadol 50 mg PO DAILY 20 tabs 2RF 30 days Changed From acetaminophen 325 mg PO Q6-8H PRN Pain To acetaminophen 650 mg (2 x 325 mg) PO Q8H PRN 180 tabs 3RF Pain 30 days Coding Level of Care Code Est Pt Level 4 (29655) Diagnoses Lumbar radiculopathy M54.16 Thoracic disc disease M51.9 Cervical spondylosis M47.812 Migraine without status migrainosus, not intractable, unspecified migraine type G43.909 Intractability: not intractable Migraine type: unspecified Status migrainosus presence: without status migrainosus Bilateral carpal tunnel syndrome G56.03 Fatigue, unspecified type R53.83 Fatigue type: unspecified Urinary tract infection without hematuria, site unspecified N39.0 Hematuria presence: without hematuria Urinary tract infection type: site unspecified
--- OUTSIDE RECORDS SUMMARY | 2025-07-20 10:36 | XMS_ITS | Clinical Summary ---
Author Organization [employer] [facility] Address [address] [place] [address] [address] [place] [address] Care Team Providers Care Gunite Nozzle Operator Name Role Phone Unavailable Primary Care Provider Unavailabl e Allergies No known active allergies Medications No known medications Active Problems Problem Noted Date Diagnosed Date Severe atrophy of mandible 01/05/2025 Complete edentulism 05/21/2024 Encounters Date Type Department Care Team Description 04/27/2025 1:15 PM EDT Office Visit [facility] [address] [place] [address] Wilmer Malagon DDS Complete edentulism, unspecified edentulism [...] Exam 11/22/2024 05/21/2024, 09/22/2016, 04/27/2009 COVID-19 Vaccine (1 - 2023-2 5 season) 2025 Influenza Vaccine [...] - MAXILLARY Routine 04/27/2025 1:15 PM EDT PANORAMIC RADIOGRAPHIC IMAGE Routine 05/21/2024 9:30 AM EDT PERIODIC ORAL EVALUATION - ESTABLISHED PATIENT Routine 05/21/2024 9:30 AM EDT INTRAORAL - COMPLETE SERIES OF RADIOGRAPHIC IMAGES Routine 03/31/2009 12:00 AM EDT from Last 3 Months or Most Recently Relevant to Health Maintenance [place] [address] DENTAL-[facility] MEDICAID STAND ADULT [place] [id number] [place] [address]
--- OUTSIDE RECORDS SUMMARY | 2025-07-20 10:36 | XMS_ITS | Patient Health Record ---
Author Organization [facility] Address [address] [place] [address] Care Team Providers Care Transportation Associate Name Role Phone Edwina Berta Primary Care Provider Cristo Lakhani Unavailable [phone] Allergies No Known Allergies Results Component Value Reference Range Notes Pathology (Not yet reviewed by provider) Interpretation: Performing Lab:[facility], [address] [place] [id number] Notes/Report: Reason For Referral No Information Medications Medication SIG (Take, Route, Frequency, Duration) Notes Start Date End Date Status Naproxen 500 MG 1 tablet with food o r milk as needed Orally every 12 hrs Active Multivitamin - 1 tablet Orally Once a day; Duration: 30 day(s) Active Acetaminophen 325 MG 1 tablet as needed Orally every 6 hrs Active Co Q-10 200 MG TAKE ONE CAPSULE BY MOUTH EVERY DAY Oral; Duration: 30 Days Active Ezetimibe 10 MG TAKE 1 TABLET BY RICHELLE TH EVERY DAY Oral; Duration: 90 Days Active Rosuvastatin Calcium 10 MG TAKE 1 TABLET BY MOUTH AT BEDTIME Oral; Duration: 90 Active Omeprazole 20 MG 1 Orally Once a day every morning; Duration: 30 days 06/26/2025 Active CoQ-10 30 MG 1 capsule with a shashi l Orally Once a day; Duration: 30 day(s) Active Immunizations Vaccine Route Administration [...] Status Risk Notes Problem Irritable bowel syndrome (99432918) Irritable bowel syndrome (K58.9) Active confirmed Problem Screening for malignant neoplasm of colon (669037676) Encounter for screening for malignant neoplasm of colon (Z12.11) Active confirmed Problem Constipation (77458401) Constipation (K59.00) Active confirmed Problem Diarrhea (65148011) Diarrhea (R19.7) Active confirmed Problem Heartburn (07063571) Heartburn (R12) Active confirmed Problem Early satiety (840952686) Early satiety (R68.81) Active confirmed Problem Gastroesophageal reflux disease (024463777) GERD (gastroesophage al reflux disease) (K21.9) Active confirmed Vital Signs Temperature 97.1 degrees Fahrenheit 04/03/2025 Blood pressure diastolic 01 mm Hg 04/03/2025 Height 66 in 04/03/2025 Blood pressure systolic 001 mm Hg 04/03/2025 Weight 157.4 lbs 04/03/2025 BMI 25.4 kg/m2 04/03/2025 Procedures Procedure Date Ordered Date Performed Result Body Sit e UPPER GI ENDOSCOPY 04/03/2025 N/A Encounters Encounter Location Date Provider Diagnosis [facility] Outpatient [address] [place] [id number] 06/26/[address] [facility] [address] [place] [phone] 04/03/2025 Cristo Sims Early satiety R68.81 ; GERD (gastroesophageal reflux disease) K21.9 ; Heartburn R12 and Constipation K59.00 [facility] [address] [place] [phone] 02/24/[address] [facility] [address] [place] [phone] 04/29/[address] [facility] [address] [place] [address], [place] [address] 06/26/2025 Cristo Sims Assessments Encounter Date Diagnosis (ICD [...] GI ENDOSCOPY 04/03/2025 CELIAC PANEL #10 10/28/2020 Pathology 06/26/2025 Future Test Test Name Order Date COLONOSCOPY 10/28/2020 Insurance Providers Payer Name Payer Address Payer Phone Subscriber Number Group Number Insured Name Patient Relationship to Insured Coverage Start Date Coverage End Date MEDICARE OF [place] [address] [place] [address] [id number] CYNTHIA WARE MUSA Self - patient is the insured 5 [place] [address] [place] [phone] [id number] CYNTHIA MUSA WARE Self - patient is the insured Medical (General) History Medical History History ICD Code Fibromyalgia Denies NM,DM,CVA,Lung disease,renal dise ase IBS diarrhea/constipation- n eg. colonoscopy 10/2020, including biopsies from colon and TI; neg. 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 screening colonoscopy 10/2020 Surgical History Surgery Date(Month/Year) Bilateral cataract-lens implants Breast implants Cholecystectomy Tonsillectomy
--- OUTSIDE RECORDS SUMMARY | 2025-07-20 10:37 | XMS_ITS | Encounter Summary ---
Author Organization [employer] Address [address] [facility] [address] [place] [address] Care Team Providers Care Right Of Way Supervisor Name Role Phone Unavailable Primary Care Provider Unavailabl e Reason for Visit * Reason Onset Date Comments Dr. Malagon clarification of case 03/09/2025 Encounter Details Date Type Department Care Team ([facility] st Contact Info) Description 03/09/2025 Telephone [facility] ADULT [facility]AL [address] [place] [address] Wilmer Malagon DDS [address] [place], [place] [phone] Dr. Malagon clarification of case Social History [...] EDT Message for Dr. Manas Yarbrough from [employer] called in. They received case after 5pm on Sunday. They state they believe it is to complete however lab slip states special instructions however no directions given. Also requestfor it to be in office for 03/13 but they need 5 business days as weekends do not count. They can have it ready for 03/16. Please reach out with questions to [phone] documented in this encounter Plan of Treatment Not on file documented as of this encounter Visit Diagnoses Not on filedocumented in this encounter
== END 2025-07-20 09:59 | disposition home or self-care (01) ==
LOC: HO.HSM 09:28
PROVIDERS: PCP Internal Medicine; Referring Provider Internal Medicine; Visit Provider Registered Nurse
DX: M54.16 Radiculopathy, lumbar region (principal); M51.9 Unspecified thoracic, thoracolumbar and lumbosacral intervertebral disc disorder; M47.812 Spondylosis without myelopathy or radiculopathy, cervical region; G43.909 Migraine, unspecified, not intractable, without status migrainosus; G56.03 Carpal tunnel syndrome, bilateral upper limbs; R53.83 Other fatigue; N39.0 Urinary tract infection, site not specified
CPT/HCPCS: 99214

== ENCOUNTER 2025-07-20 09:27 | Outpatient (REF) | payer MEDICARE, MEDICAID, SELFPAY ==
[2025-07-20 10:19] LABS: MANUAL DIFF FLAG NO
[2025-07-20 10:29] LABS: Hematocrit 42.7 % (37.0-47.0); Hemoglobin 14.1 g/dl (12.0-16.0); Imm Gran Abs Auto 0.00 X10*3/uL (0.00-0.03); Imm Gran Pct Auto 0.0 % (0.0-0.4); Lymphocytes Absolute Auto 1.2 X10*3/uL (1.2-4.9); Mean Corpuscular HGB Conc 33.0 g/dl (31.0-35.0); Mean Corpuscular Hemoglobin 29.6 pg (27.0-33.0); Mean Corpuscular Volume 89.5 fL (80.0-98.0); NRBC Abs Auto 0.000 X10*3/uL (0.0-0.012); NRBC Pct Auto 0.0 /100WBC (0.0-0.2); Platelet Count 196 X10*3/uL (160-400); Red Blood Count 4.77 X10*6/uL (4.20-5.50); White Blood Count 5.0 X10*3/uL (4.8-10.8)
[2025-07-20 10:42] LABS: Appearance Urine Clear; Glucose Urine UA Negative (Negative); PH 6.0 (5.0-9.0); Specific Gravity - Urine 1.025 (1.005-1.025); UMIC TRIGGER UACC YES
[2025-07-20 10:57] LABS: UACC Culture Trigger YES
== END 2025-07-20 09:28 | disposition home or self-care (01) ==
LOC: HO.LAB 09:27
PROVIDERS: PCP Internal Medicine; Referring Provider Internal Medicine; Visit Provider Registered Nurse
DX: M54.16 Radiculopathy, lumbar region (principal); M47.812 Spondylosis without myelopathy or radiculopathy, cervical region; G43.909 Migraine, unspecified, not intractable, without status migrainosus; R53.83 Other fatigue; N39.0 Urinary tract infection, site not specified; Z79.899 Other long term (current) drug therapy
CPT/HCPCS: 36415; 81001; 85025; 87086; 87147; 99212